=== PATIENT | female | born 1935 | race African-American/Black ===

== ENCOUNTER 2017-03-10 16:54 | Emergency (ER) | payer MEDICARE, MEDICAID ==
--- NOTE | 2017-03-10 17:19 | ER Document Report ---
ED Medical Screen (RME) - General Chief Complaint: Tremor Stated Complaint: CHILLS, SHAKINESS Time Seen by Provider: 03/10/17 17:16 Notes: This 82-year-old female patient brought to emergency room for onset last night of shaking and cold chills. No other complaints. At this time the patient states she feels fine. I have greeted and performed a rapid initial assessment of this patient. A comprehensive ED assessment and evaluation of the patient, analysis of test results and completion of the medical decision making process will be conducted by additional ED providers. TRAVEL OUTSIDE OF THE [place] IN LAST 30 DAYS: No - Related Data Allergies/Adverse Reactions: No Known Allergies Allergy (Verified 03/10/17 16:57) Past Medical History - Past Medical History Cardiac Medical History: Reports: Hx Hypertension - medicated Denies: Hx Atrial Fibrillation, Hx Congestive Heart Failure, Hx Coronary Artery Disease, Hx Heart Attack, Hx Hypercholesterolemia, Hx Peripheral Vascular Disease, Hx Heart Murmur Pulmonary Medical History: Denies: Hx Asthma, Hx Bronchitis, Hx COPD, Hx Pneumonia, Hx Tuberculosis Neurological Medical History: Denies: Hx Cerebrovascular Accident, Hx Seizures GI Medical History: Denies: Hx Hepatitis, Hx Hiatal Hernia, Hx Ulcer Musculoskeltal Medical History: Denies Hx Multiple Sclerosis Psychiatric Medical History: Denies: Hx Dementia Infectious Medical History: Denies: Hx Hepatitis Past Surgical History: Reports: Hx Tubal Ligation. Denies: Hx Appendectomy, Hx Bowel Surgery, Hx Section, Hx Cholecystectomy, Hx Coronary Artery Bypass Graft, Hx Gastric Bypass Surgery, Hx Herniorrhaphy, Hx Hysterectomy, Hx Mastectomy, Hx Open Heart Surgery, Hx Pacemaker, Hx Tonsillectomy Physical Exam - Vital signs Vitals: Temp Pulse BP Pulse Ox 97.5 F 94 141/82 H 97 03/10/17 17:15 03/10/17 17:15 03/10/17 17:15 03/10/17 17:15 Course - Vital Signs Vital signs: Temp Pulse Resp BP Pulse Ox 97.5 F 94 141/82 H 97 03/10/17 17:15 03/10/17 17:15 03/10/17 17:15 03/10/17 17:15
[2017-03-10 17:59] LABS: ABSOLUTE LYMPHOCYTES (AUTO) 1.7 10^3/uL (0.5-4.7); ABSOLUTE MONOCYTES (AUTO) 0.7 10^3/uL (0.1-1.4); BASOPHILS % (AUTO) 0.4 % (0-2); EOSINOPHILS % (AUTO) 0.5 % (0-6); HEMATOCRIT 37.7 % (36.0-47.0); HEMOGLOBIN 11.8 g/dL (12.0-15.5); LYMPHOCYTES % (AUTO) 22.5 % (13-45); MEAN CORPUSCULAR HGB CONC 31.2 g/dL (32.0-36.0); MEAN CORPUSCULAR VOLUME 74 fl (80-97); MONOCYTES % (AUTO) 9.3 % (3-13); PLATELET COUNT 223 10^3/uL (150-450); RED BLOOD COUNT 5.12 10^6/uL (3.72-5.28); RED CELL DISTRIBUTION WIDTH 15.1 % (11.5-14.0); SEGMENTED NEUTROPHILS % (AUTO) 67.3 % (42-78); TOTAL CELLS COUNTED % (AUTO) 100 %; WHITE BLOOD COUNT 7.5 10^3/uL (4.0-10.5)
[2017-03-10 18:06] LABS: APPEARANCE,URINE SLIGHTLY-CLOUDY; BILIRUBIN,URINE NEGATIVE (NEGATIVE); COLOR,URINE YELLOW; GLUCOSE, URINE NEGATIVE (NEGATIVE); KETONES,URINE NEGATIVE (NEGATIVE); LEUKOCYTE ESTERASE,URINE SMALL (NEGATIVE); NITRITE,URINE POSITIVE (NEGATIVE); PROTEIN,URINE NEGATIVE (NEGATIVE)
[2017-03-10 18:12] LABS: ALANINE AMINOTRANSFERASE 18 U/L (9-52); ALBUMIN 3.9 g/dL (3.5-5.0); ALKALINE PHOSPHATASE 56 U/L (38-126); ANION GAP 9 (5-19); ASPARTATE AMINO TRANSFERASE 37 U/L (14-36); BILIRUBIN,DIRECT 0.2 mg/dL (0.0-0.4); BILIRUBIN,TOTAL 0.6 mg/dL (0.2-1.3); BLOOD UREA NITROGEN 18 mg/dL (7-20); CALCIUM 10.5 mg/dL (8.4-10.2); CARBON DIOXIDE 29 mmol/L (22-30); CHLORIDE 105 mmol/L (98-107); GLUCOSE 99 mg/dL (75-110); POTASSIUM 3.8 mmol/L (3.6-5.0); SODIUM 142.6 mmol/L (137-145); TOTAL PROTEIN 7.6 g/dL (6.3-8.2)
[2017-03-10] MEDS ORDERED: CEPHALEXIN 500 MG CAPSULE PO ONE (19:23)
--- NOTE | 2017-03-10 19:24 | ER Document Report ---
ED General - General Chief Complaint: Tremor Stated Complaint: CHILLS, SHAKINESS Time Seen by Provider: 03/10/17 17:16 Notes: Patient is an 82-year-old woman who presents with 48 hours of intermittent shaking and chills. She denies any complaints at time of my assessment. Family states they have noticed her appearing very cold and shaking particularly at night which is what prompted them to bring her to the emergency department today. No history of similar symptoms in the past. Patient denies any localizing infectious symptoms including cough, headache, neck pain, shortness of breath, abdominal pain, vomiting or diarrhea. She denies dysuria. She has not seen her primary doctor regarding today's concerns. She has not tried to treat her symptoms and nothing seems to prompt the symptoms. TRAVEL OUTSIDE OF THE [place] IN LAST 30 DAYS: No - Related Data Allergies/Adverse Reactions: No Known Allergies Allergy (Verified 03/10/17 16:57) Past Medical History - General Information source: Patient - Social History Smoking Status: Former Smoker Chew tobacco use (# tins/day): Yes Frequency of alcohol use: None Drug Abuse: None Lives with: Family Family History: Reviewed & Not Pertinent Patient has suicidal ideation: No Patient has homicidal ideation: No - Past Medical History Cardiac Medical History: Reports: Hx Hypertension - medicated Denies: Hx Atrial Fibrillation, Hx Congestive Heart Failure, Hx Coronary Artery Disease, Hx Heart Attack, Hx Hypercholesterolemia, Hx Peripheral Vascular Disease, Hx Heart Murmur Pulmonary Medical History: Denies: Hx Asthma, Hx Bronchitis, Hx COPD, Hx Pneumonia, Hx Tuberculosis Neurological Medical History: Denies: Hx Cerebrovascular Accident, Hx Seizures Renal/ Medical History: Denies: Hx Peritoneal Dialysis GI Medical History: Denies: Hx Hepatitis, Hx Hiatal Hernia, Hx Ulcer Musculoskeltal Medical History: Denies Hx Multiple Sclerosis Psychiatric Medical History: Denies: Hx Dementia Infectious Medical History: Denies: Hx Hepatitis Past Surgical History: Reports: Hx Tubal Ligation. Denies: Hx Appendectomy, Hx Bowel Surgery, Hx Section, Hx Cholecystectomy, Hx Coronary Artery Bypass Graft, Hx Gastric Bypass Surgery, Hx Herniorrhaphy, Hx Hysterectomy, Hx Mastectomy, Hx Open Heart Surgery, Hx Pacemaker, Hx Tonsillectomy - Immunizations Hx Pneumococcal Vaccination: 03/28/13 Review of Systems - Review of Systems Notes: Constitutional: Negative for fever. Positive for chills HENT: Negative for sore throat. Eyes: Negative for visual changes. Cardiovascular: Negative for chest pain. Respiratory: Negative for shortness of breath. Gastrointestinal: Negative for abdominal pain, vomiting or diarrhea. Genitourinary: Negative for dysuria. Musculoskeletal: Negative for back pain. Skin: Negative for rash. Neurological: Negative for headaches, weakness or numbness. 10 point ROS negative except as marked above and in HPI. Physical Exam - Vital signs Vitals: Temp Pulse BP Pulse Ox 97.5 F 94 141/82 H 97 03/10/17 17:15 03/10/17 17:15 03/10/17 17:15 03/10/17 17:15 Interpretation: Normal Notes: PHYSICAL EXAMINATION: GENERAL: Well-appearing, well-nourished and in no acute distress. HEAD: Atraumatic, normocephalic. EYES: Pupils equal round and reactive to light, extraocular movements intact, sclera anicteric, conjunctiva are normal. ENT: nares patent, oropharynx clear without exudates. Moist mucous membranes. NECK: Normal range of motion, supple without lymphadenopathy LUNGS: Breath sounds clear to auscultation bilaterally and equal. No wheezes rales or rhonchi. HEART: Regular rate and rhythm without murmurs ABDOMEN: Soft, nontender, normoactive bowel sounds. No guarding, no rebound. No masses appreciated. EXTREMITIES: Normal range of motion, no pitting or edema. No cyanosis. NEUROLOGICAL: No focal neurological deficits. Moves all extremities spontaneously and on command. PSYCH: Normal mood, normal affect. SKIN: Warm, Dry, normal turgor, no rashes or lesions noted. Course - Re-evaluation Re-evalutation: 03/10/17 19:23 Patient presents with intermittent tremors and chills but denies any additional complaints. She is otherwise very well in appearance, denies any complaints at the time of my assessment. She denies any clinical history to suggest an acute pneumonia. Lung sounds clear. No abdominal pain or localized tenderness. I do not suspect an acute appendicitis, aortic dissection, mesenteric ischemia, regional colitis, and I have not identified any areas of cellulitis. She is laughing and joking with her family during the exam. Her urinalysis is consistent with an acute urinary tract infection with 3+ bacteria, 15 white blood cells, positive leuk esterase and nitrates. A urine culture has been sent and she will be started on cephalexin for coverage. At this time will discharge with return precautions and follow-up recommendations. Verbal discharge instructions given a the bedside and opportunity for questions given. Medication warnings reviewed. Patient is in agreement with this plan and has verbalized understanding of return precautions and the need for primary care follow-up in the next 24-72 hours. - Vital Signs Vital signs: Temp Pulse Resp BP Pulse Ox 98.9 F 76 14 150/80 H 96 03/10/17 19:47 03/10/17 19:47 03/10/17 19:47 03/10/17 19:47 03/10/17 19:47 - Laboratory Result Diagrams: 03/10/17 17:30 03/10/17 17:30 Laboratory results interpreted by me: 03/10/17 03/10/17 03/10/17 17:30 17:30 17:30 Hgb 11.8 L MCV 74 L MCH 23.0 L MCHC 31.2 L RDW 15.1 H Est GFR (Non-Af Amer) 56 L Calcium 10.5 H AST 37 H Urine Nitrite POSITIVE H Urine Urobilinogen 4.0 H Ur Leukocyte Esterase SMALL H Discharge - Discharge Clinical Impression: Chills Urinary tract infection Qualifiers: Urinary tract infection type: acute cystitis Hematuria presence: without hematuria Qualified Code(s): N30.00 - Acute cystitis without hematuria Condition: Good Disposition: HOME, SELF-CARE Additional Instructions: Your urine shows findings consistent with a urinary tract infection. Please take all the antibiotics as directed even if your symptoms have improved. Please follow-up with your primary care physician as needed. Return to emergency room if you develop fever >101F, persistent vomiting, become lethargic , have severe pain in your sides, or any other symptoms that are concerning to you. Prescriptions: Cephalexin Monohydrate [Keflex 500 mg Capsule] 500 mg PO Q6H 5 Days capsule Referrals: PILO BLACK MD [Primary Care Provider] - Follow up as needed
[2017-03-10 19:53] VITALS: BP 150/80
== END 2017-03-10 19:54 | disposition home or self-care (01) ==
LOC: ER 16:54
DX: N30.00 Acute cystitis without hematuria (principal); R68.83 Chills (without fever); I10 Essential (primary) hypertension; Z98.51 Tubal ligation status; Z87.891 Personal history of nicotine dependence
CPT/HCPCS: 99283; 36415; 87040; 87086; 85025; 87088; 80053; 81001; 87186; A9270

== ENCOUNTER 2018-03-24 13:21 | Emergency (ER) | payer MEDICARE, MEDICAID ==
--- NOTE | 2018-03-24 14:20 | ER Document Report ---
ED Medical Screen (RME) - General Chief Complaint: Urinary Problem Stated Complaint: URINARY ISSUE Time Seen by Provider: 03/24/18 14:14 Primary Care Provider: PILO BLACK MD [Primary Care Provider] - Follow up as needed Mode of Arrival: Wheelchair Information source: Patient, Relative Notes: 83-year-old female brought to the emergency department by her daughter for altered mental status. Daughter states that the patient has a history of dementia but is not at her baseline. She states that she is more confused than normal today she has been rocking back and forth. Daughter states that her symptoms are similar to when she has had a urinary tract infection previously. Daughter does note that she had 4 teeth pulled yesterday. She is currently on clindamycin. Daughter also notes that she found her on the ground yesterday. Unknown if the patient hit her head or loss consciousness. Patient was complaining of neck pain yesterday. Patient has no complaints in the room. Daughter denies any fever, vomiting, diarrhea, constipation. States that she did have one episode of incontinence last night. I have greeted and performed a rapid initial assessment of this patient. A comprehensive ED assessment and evaluation of the patient, analysis of test results and completion of the medical decision making process will be conducted by additional ED providers. PHYSICAL EXAMINATION: GENERAL: Well-appearing, well-nourished and in no acute distress. HEAD: No obvious trauma. EYES: Pupils equal round extraocular movements intact, conjunctiva are normal. ENT: Nares patent NECK: Normal range of motion. No tenderness to palpation. LUNGS: No respiratory distress Musculoskeletal: Normal range of motion NEUROLOGICAL: Normal speech. TRAVEL OUTSIDE OF THE [place] IN LAST 30 DAYS: No - Related Data Allergies/Adverse Reactions: No Known Allergies Allergy (Verified 03/24/18 14:12) Past Medical History - Social History Chew tobacco use (# tins/day): Yes Frequency of alcohol use: None Drug Abuse: None - Past Medical History Cardiac Medical History: Reports: Hx Hypertension - medicated Denies: Hx Atrial Fibrillation, Hx Congestive Heart Failure, Hx Coronary Artery Disease, Hx Heart Attack, Hx Hypercholesterolemia, Hx Peripheral Vascular Disease, Hx Heart Murmur Pulmonary Medical History: Denies: Hx Asthma, Hx Bronchitis, Hx COPD, Hx Pneumonia, Hx Tuberculosis Neurological Medical History: Denies: Hx Cerebrovascular Accident, Hx Seizures Renal/ Medical History: Denies: Hx Peritoneal Dialysis GI Medical History: Denies: Hx Hepatitis, Hx Hiatal Hernia, Hx Ulcer Musculoskeltal Medical History: Denies Hx Multiple Sclerosis Psychiatric Medical History: Denies: Hx Dementia Infectious Medical History: Denies: Hx Hepatitis Past Surgical History: Reports: Hx Tubal Ligation. Denies: Hx Appendectomy, Hx Bowel Surgery, Hx Section, Hx Cholecystectomy, Hx Coronary Artery Bypass Graft, Hx Gastric Bypass Surgery, Hx Herniorrhaphy, Hx Hysterectomy, Hx Mastectomy, Hx Open Heart Surgery, Hx Pacemaker, Hx Tonsillectomy Physical Exam - Vital signs Vitals: Temp Pulse Resp BP Pulse Ox 97.7 F 77 20 126/80 H 99 03/24/18 13:41 03/24/18 13:41 03/24/18 13:41 03/24/18 13:41 03/24/18 13:41 Course - Vital Signs Vital signs: Temp Pulse Resp BP Pulse Ox 97.7 F 77 20 126/80 H 99 03/24/18 13:41 03/24/18 13:41 03/24/18 13:41 03/24/18 13:41 03/24/18 13:41 Doctor's Discharge - Discharge Referrals: PILO BLACK MD [Primary Care Provider] - Follow up as needed
--- NOTE | 2018-03-24 15:08 | RADIOLOGY REPORT (SQ) ---
EXAM DESCRIPTION: CT HEAD WITHOUT COMPLETED DATE/TIME: 03/24/2018 2:48 pm REASON FOR STUDY: fall, AMS COMPARISON: None. TECHNIQUE: Axial images acquired through the brain without intravenous contrast. Images reviewed wi th bone, brain and subdural windows. Additional sagittal and coronal reconstructions were generated. Images stored on PACS. All CT scanners at this facility use dose modulation, iterative reconstruction, and/or weight based d osing when appropriate to reduce radiation dose to as low as reasonably achievable (ALARA). [facility]: Dose Right [facility]: CareDose [facility]: Dose Right [facility]: Teradose 4D [facility]: Smart Kashless RADIATION DOSE: CT Rad equipment meets quality standard of care and radiation dose reduction techniq ues were employed. CTDIvol: 53.2 mGy. DLP: 1097 mGy-cm.mGy. LIMITATIONS: None. FINDINGS: VENTRICLES: Generalized ventriculomegaly likely related to chronic atrophy. CEREBRUM: No masses. No hemorrhage. No midline shift. Moderate patchy areas of low density in the white matter most likely due to chronic micro-vascular ischemic change. No evidence for acute infarc tion. CEREBELLUM: No masses. No hemorrhage. No alteration of density. No evidence for acute infarction. EXTRAAXIAL SPACES: No hemorrhage or mass or shift. ORBITS AND GLOBE: No intra- or extraconal masses. Normal contour of globe without masses. CALVARIUM: No fracture. PARANASAL SINUSES: No fluid or mucosal thickening. SOFT TISSUES: No mass or hematoma. OTHER: No other significant finding. IMPRESSION: CHRONIC CHANGES OF ATROPHY AND MICROVASCULAR ISCHEMIA. NO ACUTE PROCESS. EVIDENCE OF ACUTE STROKE: NO. TECHNICAL DOCUMENTATION: JOB ID: [id number] Quality ID # [id number]: Final reports with documentation of one or more dose reduction techniques (e.g., Au tomated exposure control, adjustment of the mA and/or kV according to patient size, use of iterative reconstruction technique) 2010 [employer]- All Rights Reserved Reading location - IP/workstation name: [email or web address]
--- NOTE | 2018-03-24 15:20 | RADIOLOGY REPORT (SQ) ---
EXAM DESCRIPTION: CT CERVICAL SPINE WITHOUT COMPLETED DATE/TIME: 03/24/2018 2:48 pm REASON FOR STUDY: fall COMPARISON: None. TECHNIQUE: Axial images acquired through the cervical spine without intravenous contrast. Images re viewed with lung, soft tissue and bone windows. Reconstructed coronal and sagittal MPR images review ed. Images stored on PACS. All CT scanners at this facility use dose modulation, iterative reconstruction, and/or weight based d osing when appropriate to reduce radiation dose to as low as reasonably achievable (ALARA). [facility]: Dose Right [facility]: CareDose [facility]: Dose Right [facility]: Teradose 4D [facility]: Smart judo RADIATION DOSE: CT Rad equipment meets quality standard of care and radiation dose reduction techniq ues were employed. CTDIvol: 24.1 mGy. DLP: 514 mGy-cm. mGy. LIMITATIONS: None. FINDINGS: ALIGNMENT: Scoliosis convex right MINERALIZATION: Normal. VERTEBRAL BODIES: Cervical spondylosis and degenerative disc disease prominent C4-7. DISCS: C1-C2: No abnormality. . C2-C3: No abnormality. C3-C4: No abnormality. C4-C5: Degenerated circumferential bulging disc. Mild foraminal narrowing noted bilaterally. C5-C6: Degenerated circumferential bulging disc. Foraminal stenosis prominent on the left. Facet ar thropathy. C6-C7: Cervical spondylosis and degenerative disc disease. C7-T1: No significant spinal stenosis or exit foraminal stenosis. FACETS, LATERAL MASSES, POSTERIOR ELEMENTS: No fractures. No dislocation. No acute findings. VISUALIZED RIBS: No fractures. LUNG APICES AND SOFT TISSUES: No abnormality seen. OTHER: The right thyroid gland is markedly enlarged and heterogeneous in density. The right thyroid gland measures 8.4 cm(H)x 4.6 cm(T)X 5.9 cm (AP) diameter. Left thyroid gland is small in size and h eterogeneous measuring 2.7 cm (H) x1.6 cm x(T)x 1.9 cm (AP) diameter. Substernal extension of right thyroid gland noted. Associated tracheal displacement to the left is noted. IMPRESSION: No acute fracture identified. Multilevel cervical spondylosis with degenerative disc di sease. Marked right thyromegaly. 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 TECHNICAL DOCUMENTATION: JOB ID: [id number] Quality ID # [id number]: Final reports with documentation of one or more dose reduction techniques (e.g., Au tomated exposure control, adjustment of the mA and/or kV according to patient size, use of iterative reconstruction technique) 2010 [employer]- All Rights Reserved Reading location - IP/workstation name: [email or web address]
[2018-03-24 15:27] LABS: ABSOLUTE LYMPHOCYTES (AUTO) 1.3 10^3/uL (0.5-4.7); ABSOLUTE MONOCYTES (AUTO) 0.9 10^3/uL (0.1-1.4); ABSOLUTE NEUT (AUTO) 11.5 10^3/uL (1.7-8.2); BASOPHILS % (AUTO) 0.1 % (0-2); HEMATOCRIT 38.4 % (36.0-47.0); LYMPHOCYTES % (AUTO) 9.1 % (13-45); MEAN CORPUSCULAR HEMOGLOBIN 23.1 pg (27.0-33.4); MEAN CORPUSCULAR HGB CONC 31.3 g/dL (32.0-36.0); MEAN CORPUSCULAR VOLUME 74 fl (80-97); MONOCYTES % (AUTO) 6.8 % (3-13); PLATELET COUNT 212 10^3/uL (150-450); RED BLOOD COUNT 5.21 10^6/uL (3.72-5.28); RED CELL DISTRIBUTION WIDTH 14.8 % (11.5-14.0); TOTAL CELLS COUNTED % (AUTO) 100 %; WHITE BLOOD COUNT 13.7 10^3/uL (4.0-10.5)
--- NOTE | 2018-03-24 15:28 | RADIOLOGY REPORT (SQ) ---
EXAM DESCRIPTION: CHEST SINGLE VIEW COMPLETED DATE/TIME: 03/24/2018 2:40 pm REASON FOR STUDY: AMS COMPARISON: 02/22/2008. 03/18/2013. EXAM PARAMETERS: NUMBER OF VIEWS: One view. TECHNIQUE: Single frontal radiographic view of the chest acquired. RADIATION DOSE: NA LIMITATIONS: None. FINDINGS: LUNGS AND PLEURA: Chronic lingular scarring . No acute infiltrates or effusions. MEDIASTINUM AND HILAR STRUCTURES: No masses. Contour normal. HEART AND VASCULAR STRUCTURES: The heart is normal with aortic atherosclerosis. Pulmonary vasculatur e is normal. BONES: No acute findings. HARDWARE: None in the chest. OTHER: Persistent tracheal deviation to the left secondary to right thyroid enlargement. IMPRESSION: No acute disease. See above. TECHNICAL DOCUMENTATION: JOB ID: [id number] 2010 [employer]- All Rights Reserved Reading location - IP/workstation name: [email or web address]
[2018-03-24 15:50] LABS: ALANINE AMINOTRANSFERASE 20 U/L (9-52); ALBUMIN 4.5 g/dL (3.5-5.0); ALKALINE PHOSPHATASE 78 U/L (38-126); ANION GAP 10 (5-19); ASPARTATE AMINO TRANSFERASE 47 U/L (14-36); BILIRUBIN,DIRECT 0.4 mg/dL (0.0-0.4); BILIRUBIN,TOTAL 0.8 mg/dL (0.2-1.3); BLOOD UREA NITROGEN 34 mg/dL (7-20); CALCIUM 10.6 mg/dL (8.4-10.2); CARBON DIOXIDE 29 mmol/L (22-30); CHLORIDE 105 mmol/L (98-107); GLUCOSE 99 mg/dL (75-110); POTASSIUM 3.9 mmol/L (3.6-5.0); SODIUM 144.1 mmol/L (137-145); TOTAL PROTEIN 8.7 g/dL (6.3-8.2)
[2018-03-24 16:26] LABS: APPEARANCE,URINE CLEAR; BILIRUBIN,URINE NEGATIVE (NEGATIVE); COLOR,URINE YELLOW; GLUCOSE, URINE NEGATIVE (NEGATIVE); KETONES,URINE NEGATIVE (NEGATIVE); LEUKOCYTE ESTERASE,URINE NEGATIVE (NEGATIVE); NITRITE,URINE NEGATIVE (NEGATIVE); PROTEIN,URINE NEGATIVE (NEGATIVE); URINE SPECIFIC GRAVITY 1.019; UROBILINOGEN,URINE NEGATIVE mg/dL (<2.0)
[2018-03-24 18:32] LABS: A TYPE INFLUENZA AG NEGATIVE (NEGATIVE); B INFLUENZA AG NEGATIVE (NEGATIVE)
[2018-03-24 20:02] VITALS: BP 132/90
--- NOTE | 2018-03-24 20:05 | EKG REPORT ---
SEVERITY:- ABNORMAL ECG - SINUS RHYTHM LVH WITH SECONDARY REPOLARIZATION ABNORMALITY : Confirmed by: Italo Mejía 24-Mar-2018 20:04:36
--- NOTE | 2018-04-11 09:09 | ER Document Report ---
Entered by MELIDA PÉREZ SCRIBE 03/24/18 [id number] Acting as scribe for:DAVIS MONTIEL DO ED General - General Chief Complaint: Urinary Problem Stated Complaint: URINARY ISSUE Time Seen by Provider: 03/24/18 14:14 Primary Care Provider: PILO BLACK MD [Primary Care Provider] - Follow up as needed Mode of Arrival: Wheelchair Information source: Patient, Relative Notes: Patient is an 83 year old female with dementia presents to the emergency department accompanied by daughter complaining of altered mental status. Daughter states the patient has been more confused lately as well as rocking back and forth which is out of character. She also states she found the patient this morning sitting on the floor. She is unsure if the patient fell or had a loss of consciousness. Daughter states she believes the patient has an UTI due to having similar symptoms with a previous UTI. She also reports an episode of urine incontinence. Daughter denies fevers, vomiting, diarrhea or constipation. Patient denies any pain or focal symptoms. TRAVEL OUTSIDE OF THE [place] IN LAST 30 DAYS: No - Related Data Allergies/Adverse Reactions: No Known Allergies Allergy (Verified 03/24/18 14:12) Past Medical History - General Information source: Patient, Relative - Social History Smoking Status: Never Smoker Chew tobacco use (# tins/day): Yes Frequency of alcohol use: None Drug Abuse: None Family History: Reviewed & Not Pertinent Patient has suicidal ideation: No Patient has homicidal ideation: No - Past Medical History Cardiac Medical History: Reports: Hx Hypertension - medicated Psychiatric Medical History: Reports: Hx Dementia Past Surgical History: Reports: Hx Tubal Ligation - Immunizations Hx Pneumococcal Vaccination: 03/28/13 Review of Systems - Review of Systems Constitutional: No symptoms reported EENT: No symptoms reported Cardiovascular: No symptoms reported Respiratory: No symptoms reported Gastrointestinal: No symptoms reported Genitourinary: No symptoms reported Female Genitourinary: No symptoms reported Musculoskeletal: No symptoms reported Skin: No symptoms reported Hematologic/Lymphatic: No symptoms reported Neurological/Psychological: See HPI, Confusion, Dementia -: Yes All other systems reviewed and negative Physical Exam - Vital signs Vitals: Temp Pulse Resp BP Pulse Ox 97.7 F 77 20 126/80 H 99 03/24/18 13:41 03/24/18 13:41 03/24/18 13:41 03/24/18 13:41 03/24/18 13:41 - Notes Notes: GENERAL: Alert, interacts well. No acute distress. HEAD: Normocephalic, atraumatic. EYES: Pupils equal, round, and reactive to light. Extraocular movements intact. ENT: Oral mucosa moist, tongue midline. NECK: Full range of motion. Supple. Trachea midline. LUNGS: Clear to auscultation bilaterally, no wheezes, rales, or rhonchi. No respiratory distress. HEART: Regular rate and rhythm. 1/6 systolic murmur. No gallops or rubs. ABDOMEN: Soft, non-tender. Non-distended. Bowel sounds present in all 4 quadrants. EXTREMITIES: Moves all 4 extremities spontaneously. NEUROLOGICAL: Alert and oriented to person and place. Not oriented to time. Normal speech. PSYCH: Normal affect, normal mood. SKIN: Warm, dry, normal turgor. No rashes or lesions noted. Course - Re-evaluation Re-evalutation: 03/24/18 19:31 CBC shows leukocytosis of 13.7, no anemia, platelets normal, CMP shows slightly elevated BUN otherwise unremarkable, cardiac enzymes negative x2, urinalysis unremarkable, flu a and B swabs are negative, CT scan of the head and neck were ordered given the fact that she was found on her floor and we do not know how she ended up there. These were negative for fracture dislocation. Chest x-ray was unremarkable as well. Only findings were tracheal deviation from stable thyromegaly. Daughter does mention that the patient is currently on antibiotics for dental infection, it is possible that the dental infection is causing her slightly increased confusion and the rocking back and forth. Patient is not having symptoms severe enough to warrant admission at this time. Patient will continue taking the oral antibiotics for her dental infection and be discharged to home. Blood cultures are pending as is urine culture. Patient will return to the emergency department for worsening confusion, fevers or any new or con cerning symptoms. - Vital Signs Vital signs: Temp Pulse Resp BP Pulse Ox 97.7 F 70 17 132/90 H 98 03/24/18 20:01 03/24/18 20:01 03/24/18 20:01 03/24/18 20:01 03/24/18 20:01 - Laboratory Result Diagrams: 03/24/18 15:08 03/24/18 15:08 Laboratory results interpreted by me: 03/24/18 03/24/18 03/24/18 15:08 15:08 15:55 WBC 13.7 H MCV 74 L MCH 23.1 L MCHC 31.3 L RDW 14.8 H Seg Neutrophils % 84.0 H Lymphocytes % 9.1 L Absolute Neutrophils 11.5 H BUN 34 H Est GFR (Non-Af Amer) 50 L Calcium 10.6 H AST 47 H Total Protein 8.7 H Urine Ascorbic Acid 40 H - EKG Interpretation by Me Additional EKG results interpreted by me: 03/24/18 19:33 EKG shows sinus rhythm at a rate of 71, normal axis, normal intervals, no ST segment elevations or depressions, there are T wave inversions noted in 1 and aVL as well as in V4 through the 6 which are new since prior EKG on 03/18/2013, there is LVH per my interpretation. Discharge - Discharge Clinical Impression: Altered mental status Qualifiers: Altered mental status type: disorientation Qualified Code(s): R41.0 - Disorientation, unspecified Leukocytosis Qualifiers: Leukocytosis type: lymphocytosis Qualified Code(s): D72.820 - Lymphocytosis (symptomatic) Condition: Stable Disposition: HOME, SELF-CARE Additional Instructions: Please continue taking the antibiotics that you are prescribed by your dentist. Please return to the emergency department for fevers or worsening confusion or any new or concerning symptoms. Referrals: PILO BLACK MD [Primary Care Provider] - Follow up as needed I personally performed the services described in the documentation, reviewed and edited the documentation which was dictated to the scribe in my presence, and it accurately records my words and actions.
== END 2018-03-24 20:31 | disposition home or self-care (01) ==
LOC: ER 13:21
DX: R41.0 Disorientation, unspecified (principal); D72.820 Lymphocytosis (symptomatic); F03.90 Unspecified dementia, unspecified severity, without behavioral disturbance, psychotic disturbance, mood disturbance, and anxiety; I10 Essential (primary) hypertension; Z98.51 Tubal ligation status
CPT/HCPCS: 36415; 70450; 71045; 72125; 80053; 81001; 84484; 85025; 87040; 87086; 87804; 93005; 93010; 99285

== ENCOUNTER 2018-04-20 13:28 | Inpatient (IN) | payer MEDICARE, MEDICAID ==
[2018-04-20 14:40] LABS: ABSOLUTE EOSINOPHILS # (AUTO) 0.1 10^3/uL (0.0-0.6); ABSOLUTE LYMPHOCYTES (AUTO) 1.1 10^3/uL (0.5-4.7); ABSOLUTE MONOCYTES (AUTO) 0.6 10^3/uL (0.1-1.4); BASOPHILS % (AUTO) 0.6 % (0-2); EOSINOPHILS % (AUTO) 1.4 % (0-6); HEMATOCRIT 34.7 % (36.0-47.0); LYMPHOCYTES % (AUTO) 22.1 % (13-45); MEAN CORPUSCULAR HEMOGLOBIN 23.2 pg (27.0-33.4); MEAN CORPUSCULAR HGB CONC 31.7 g/dL (32.0-36.0); MEAN CORPUSCULAR VOLUME 73 fl (80-97); MONOCYTES % (AUTO) 13.1 % (3-13); PLATELET COUNT 168 10^3/uL (150-450); RED BLOOD COUNT 4.73 10^6/uL (3.72-5.28); RED CELL DISTRIBUTION WIDTH 14.3 % (11.5-14.0); SEGMENTED NEUTROPHILS % (AUTO) 62.8 % (42-78); TOTAL CELLS COUNTED % (AUTO) 100 %; WHITE BLOOD COUNT 4.8 10^3/uL (4.0-10.5)
[2018-04-20] MEDS ORDERED: DIGOXIN INJ 0.5 MG/2 ML AMPULE IV ONE ×2 (15:00→17:00)
[2018-04-20] MEDS: DILTIAZEM HCL 30 MG TABLET PO SCH ×2 (15:03→23:11)
[2018-04-20 15:14] LABS: ALANINE AMINOTRANSFERASE 26 U/L (9-52); ALBUMIN 3.7 g/dL (3.5-5.0); ALKALINE PHOSPHATASE 68 U/L (38-126); ANION GAP 8 (5-19); ASPARTATE AMINO TRANSFERASE 48 U/L (14-36); BILIRUBIN,DIRECT 0.3 mg/dL (0.0-0.4); BILIRUBIN,TOTAL 0.7 mg/dL (0.2-1.3); BLOOD UREA NITROGEN 33 mg/dL (7-20); CALCIUM 10.4 mg/dL (8.4-10.2); CARBON DIOXIDE 29 mmol/L (22-30); CHLORIDE 104 mmol/L (98-107); GLUCOSE 109 mg/dL (75-110); POTASSIUM 3.5 mmol/L (3.6-5.0); SODIUM 140.8 mmol/L (137-145); TOTAL PROTEIN 7.2 g/dL (6.3-8.2)
[2018-04-20 15:28] LABS: FREE T4 (FREE THYROXINE) 1.99 ng/dL (0.78-2.19)
--- NOTE | 2018-04-20 15:47 | RADIOLOGY REPORT (SQ) ---
EXAM DESCRIPTION: CHEST 2 VIEWS COMPLETED DATE/TIME: 04/20/2018 3:25 pm REASON FOR STUDY: AFIB WITH RVR COMPARISON: Chest film 03/24/2018 CT chest 07/11/2013 EXAM PARAMETERS: NUMBER OF VIEWS: two views TECHNIQUE: Digital Frontal and Lateral radiographic views of the chest acquired. RADIATION DOSE: NA LIMITATIONS: none FINDINGS: LUNGS AND PLEURA: No opacities, masses or pneumothorax. No pleural effusion. MEDIASTINUM AND HILAR STRUCTURES: Fullness in the right peritracheal region along the thoracic inlet from right-sided goiter, unchanged from CT chest 2013 HEART AND VASCULAR STRUCTURES: Heart normal size. No evidence for failure. BONES: No acute findings. HARDWARE: None in the chest. OTHER: No other significant finding. IMPRESSION: NO ACUTE RADIOGRAPHIC FINDING IN THE CHEST. TECHNICAL DOCUMENTATION: JOB ID: [id number] [employer]- All Rights Reserved Reading location - IP/workstation name: [email or web address]
[2018-04-20 15:51] LABS: THYROID STIMULATING HORMONE < 0.01 uIU/mL (0.47-4.68)
[2018-04-20] MEDS: APIXABAN 2.5 MG TABLET PO SCH (17:20)
--- NOTE | 2018-04-20 18:24 | PDOC H&P ---
History of Present Illness Admission Date/PCP: 04/20/18 13:28 [facility] Patient complains of: Leg swelling History of Present Illness: RICHARD VEGA is a 83 year old female known to my practice who presented to the office with daughter complaining about intermittent leg swelling over preceding 1 week. She denied any associated chest pain, difficulty with breathing, palpitation, irregular heart beat or excessive salt intake. She claimed compliance with her medication administration but did not take medication so far today. Daughter reported that leg swelling is more in the left leg. No recent long distance traveling, instrumentation or trauma. Her evaluation in the office revealed intermittent irregularly irregular heart rhythm with systolic murmur but no significant leg swelling. Her 12 lead EKG revealed atrial fibrillation with rapid ventricular rate. She was subsequently advised hospitalization for further evaluation and management. She adamantly continue to snuff tobacco product. Her morbidities include hypertension, hyperthyroidism, GERD, vitamin D deficiency, osteoporosis, osteoarthritis, history of polyp of colon and Eczema. Past Medical History Cardiac Medical History: Reports: Hypertension - medicated Denies: Atrial Fibrillation, Congestive Heart Failure, Coronary Artery Disease, Myocardial Infarction, Hyperlipidema, Peripheral Vascular Disease, Heart Murmur Pulmonary Medical History: Denies: Asthma, Bronchitis, Chronic Obstructive Pulmonary Disease (COPD), Pneumonia, Tuberculosis Neurological Medical History: Denies: Seizures GI Medical History: Denies: Hepatitis, Hiatal Hernia Psychiatric Medical History: Reports: Dementia Hematology: Denies: Anemia, Sickle Cell Disease Past Surgical History Past Surgical History: Reports: Tubal Ligation Denies: Amputation, Appendectomy, Section, Cholecystectomy, Coronary Artery Bypass Graft, Gastric Bypass Surgery, Herniorrhaphy, Hysterectomy, Mastectomy, Pacemaker, Tonsillectomy Social History Smoking Status: Never Smoker Frequency of Alcohol Use: None Hx Recreational Drug Use: No Drugs: None Hx Prescription Drug Abuse: No Family History Family History: Reviewed & Not Pertinent Parental Family History Reviewed: Yes Children Family History Reviewed: Yes Sibling(s) Family History Reviewed.: Yes Medication/Allergy Home Medications: Omeprazole 20 mg PO DAILY 03/22/13 Amlodipine Besylate [Norvasc 10 mg Tablet] 10 mg PO DAILY 04/20/18 Calcium Carbonate [Calcium] 600 mg PO DAILY 04/20/18 Cholecalciferol (Vitamin D3) [Vitamin D3 1000 Unit Tablet] 1,000 unit PO DAILY 04/20/18 Clotrimazole/Betamethasone Dip [Lotrisone Cream] 1 applic TP BID 04/20/18 Irbesartan/Hydrochlorothiazide [Irbesartan-Hctz 300-12.5 mg Tb] 1 each PO DAILY 04/20/18 Metoprolol Succinate [Toprol Xl 50 mg Tab.sr] 50 mg PO DAILY 04/20/18 Multivitamin [Tab-A-Josephine (Multiple Vitamin) Tablet] 1 tab PO DAILY 04/20/18 Nystatin [Mycostatin Ointment] 1 applic TP BID 04/20/18 Allergies/Adverse Reactions: lisinopril Adverse Reaction (Mild, Verified 04/20/18 17:36) cough Review of Systems Constitutional: ABSENT: chills, fever(s), headache(s), weight gain, weight loss Eyes: ABSENT: visual disturbances Ears: ABSENT: hearing changes Nose, Mouth, and Throat: ABSENT: as per HPI, headache(s), mouth pain, sore throat, vertigo, other Cardiovascular: PRESENT: edema - intermittent over preceding 1 week. ABSENT: chest pain, dyspnea on exertion, orthropnea, palpitations Respiratory: ABSENT: cough, hemoptysis Gastrointestinal: ABSENT: abdominal pain, constipation, diarrhea, hematemesis, hematochezia, nausea, vomiting Genitourinary: ABSENT: dysuria, hematuria Musculoskeletal: ABSENT: joint swelling Neurological: ABSENT: abnormal gait, abnormal speech, confusion, dizziness, foc al weakness, syncope Endocrine: ABSENT: cold intolerance, heat intolerance, polydipsia, polyuria Hematologic/Lymphatic: ABSENT: easy bleeding, easy bruising, lymphadenopathy Allergic/Immunologic: ABSENT: seasonal rhinorrhea Physical Exam Vital Signs: Temp Pulse Resp BP Pulse Ox 98.1 F 122 H 20 108/82 98 04/20/18 14:33 04/20/18 14:33 04/20/18 14:33 04/20/18 14:33 04/20/18 14:33 Intake & Output 04/19/18 04/20/18 04/21/18 06:59 06:59 06:59 Intake Total 236 Balance 236 Weight 58.7 kg General appearance: PRESENT: no acute distress Head exam: PRESENT: atraumatic, normocephalic Eye exam: PRESENT: conjunctiva pink, EOMI, PERRLA. ABSENT: scleral icterus Ear exam: PRESENT: normal external ear exam Mouth exam: PRESENT: moist Neck exam: PRESENT: full ROM. ABSENT: carotid bruit, JVD, lymphadenopathy, thyromegaly Respiratory exam: PRESENT: clear to auscultation avi Cardiovascular exam: PRESENT: irregular rhythm, +S1, +S2, systolic murmur, tachycardia. ABSENT: diastolic murmur Vascular exam: PRESENT: normal capillary refill. ABSENT: pallor GI/Abdominal exam: PRESENT: normal bowel sounds, soft. ABSENT: distended, guarding, mass, organolmegaly, rebound, tenderness Rectal exam: PRESENT: deferred Extremities exam: ABSENT: pedal edema Musculoskeletal exam: PRESENT: deformity - multiple joints involvement with arthritis Neurological exam: PRESENT: alert, awake, oriented to person, oriented to place, oriented to time, oriented to situation, CN II-XII grossly intact. ABSENT: motor sensory deficit Psychiatric exam: PRESENT: appropriate affect, normal mood. ABSENT: homicidal ideation, suicidal ideation Skin exam: PRESENT: dry, rash - scaly irregular border rash over left side of neck, warm Results Laboratory Results: 04/20/18 14:30 04/20/18 14:30 04/20/18 04/20/18 04/20/18 14:30 14:30 14:30 WBC 4.8 RBC 4.73 Hgb 11.0 L Hct 34.7 L MCV 73 L MCH 23.2 L MCHC 31.7 L RDW 14.3 H Plt Count 168 Seg Neutrophils % 62.8 Lymphocytes % 22.1 Monocytes % 13.1 H Eosinophils % 1.4 Basophils % 0.6 Absolute Neutrophils 3.0 Absolute Lymphocytes 1.1 Absolute Monocytes 0.6 Absolute Eosinophils 0.1 Absolute Basophils 0.0 Sodium 140.8 Potassium 3.5 L Chloride 104 Carbon Dioxide 29 Anion Gap 8 BUN 33 H Creatinine 1.02 Est GFR ( Amer) > 60 Est GFR (Non-Af Amer) 52 L Glucose 109 Calcium 10.4 H Total Bilirubin 0.7 AST 48 H ALT 26 Alkaline Phosphatase 68 Total Protein 7.2 Albumin 3.7 TSH < 0.01 L Free T4 1.99 Impressions: Chest X-Ray 04/20/18 00:00 IMPRESSION: NO ACUTE RADIOGRAPHIC FINDING IN THE CHEST. Assessment & Plan - Diagnosis (1) Atrial fibrillation with rapid ventricular response Is this a current diagnosis for this admission?: Yes Plan: Admit for rate control management and anticoagulation. See admitting physician orders for details. (2) HTN (hypertension) Qualifiers: Hypertension type: essential hypertension Qualified Code(s): I10 - Essential (primary) hypertension Is this a current diagnosis for this admission?: Yes Plan: Hold preadmission anti hypertensive medication to allow for rate control medication usage due to her low normal blood pressure readings presently. (3) Hyperthyroidism, subclinical Is this a current diagnosis for this admission?: Yes Plan: Continue to monitor response to current medication management (4) GERD (gastroesophageal reflux disease) Qualifiers: Esophagitis presence: without esophagitis Qualified Code(s): K21.9 - Gastro-esophageal reflux disease without esophagitis Is this a current diagnosis for this admission?: Yes Plan: Maintain on PPI medication and lifestyle management. (5) Postmenopausal osteoporosis Is this a current diagnosis for this admission?: Yes Plan: Continue preadmission medication management as indicated. (6) Vitamin D deficiency Is this a current diagnosis for this admission?: Yes Plan: Continue current preadmission medication management as indicated. (7) Osteoarthritis involving multiple joints on both sides of body Is this a current diagnosis for this admission?: Yes Plan: Continue current preadmission medication management as indicated. - Time Time Spent: 50 to 70 Minutes Medications reviewed and adjusted accordingly: Yes Anticipated discharge: Home Within: Other - Inpatient Certification Based on my medical assessment, after consideration of the patient's comorbidities, presenting symptoms, or acuity I expect that the services needed warrant INPATIENT care.: Yes I certify that my determination is in accordance with my understanding of Medicare's requirements for reasonable and necessary INPATIENT services [42 CFR 412.3e].: Yes Medical Necessity: Significant Comorbidiites Make Outpatient Treatment Too Risky, Need Close Monitoring Due to Risk of Patient Decompensation, Need For Continuous Telemetry Monitoring, Risk of Complication if Not Cared For in Hospital, Risk of Diagnosis Which Will Require Inpatient Eval/Care/Monitoring 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
--- NOTE | 2018-04-20 20:51 | EKG REPORT ---
SEVERITY:- ABNORMAL ECG - ATRIAL FIBRILLATION, V-RATE 88-158 LVH WITH SECONDARY REPOLARIZATION ABNORMALITY BORDERLINE PROLONGED QT INTERVAL : Confirmed by: Edith Everett MD 20-Apr-2018 20:50:59
[2018-04-20] MEDS: CALCIUM CARBONATE 500 MG TABLET PO SCH (21:16)
[2018-04-21] MEDS: DILTIAZEM HCL 30 MG TABLET PO SCH ×4 (05:13→23:44)
[2018-04-21] MEDS: LANSOPRAZOLE 30 MG TAB.RAP.DR PO SCH (05:13)
[2018-04-21] MEDS ORDERED: (PENDING PHARMACY ID) (Calcium Carbonate [Calcium] 600 MG) PO SCH (10:00)
[2018-04-21] MEDS: MULTIVITAMIN TABLET PO SCH (11:15)
[2018-04-21] MEDS: APIXABAN 2.5 MG TABLET PO SCH ×2 (11:15→18:57)
[2018-04-21] MEDS: CALCIUM CARBONATE 500 MG TABLET PO SCH (11:15)
--- NOTE | 2018-04-21 18:06 | PDOC PROGRESS REPORT ---
Subjective Progress Note for:: 04/21/18 Subjective:: Patient was seen by the bedside she was admitted for the management of A. fib with rapid ventricular response, she has no new complaints today Reason For Visit: AFIB WITH RVR,HTN,GERD,HYPERTHYROIDISM Physical Exam Vital Signs: Temp Pulse Resp BP Pulse Ox 98.0 F 96 16 116/53 L 96 04/21/18 15:34 04/21/18 15:34 04/21/18 15:34 04/21/18 15:34 04/21/18 15:34 Intake & Output 04/20/18 04/21/18 04/22/18 06:59 06:59 07:59 Intake Total 836 Balance 836 Weight 74.4 kg General appearance: PRESENT: no acute distress Eye exam: PRESENT: PERRLA Respiratory exam: PRESENT: clear to auscultation avi Cardiovascular exam: PRESENT: irregular rhythm, +S1, +S2 GI/Abdominal exam: PRESENT: soft Results Laboratory Results: 04/20/18 14:30 04/20/18 14:30 Impressions: Chest X-Ray 04/20/18 00:00 IMPRESSION: NO ACUTE RADIOGRAPHIC FINDING IN THE CHEST. Assessment & Plan - Diagnosis (1) Atrial fibrillation with rapid ventricular response Is this a current diagnosis for this admission?: Yes Plan: Continue treatment
[2018-04-22] MEDS: DILTIAZEM HCL 30 MG TABLET PO SCH ×4 (05:34→23:47)
[2018-04-22] MEDS: LANSOPRAZOLE 30 MG TAB.RAP.DR PO SCH (05:34)
[2018-04-22] MEDS: CALCIUM CARBONATE 500 MG TABLET PO SCH (10:28)
[2018-04-22] MEDS: APIXABAN 2.5 MG TABLET PO SCH ×2 (10:28→17:22)
[2018-04-22] MEDS: MULTIVITAMIN TABLET PO SCH (10:28)
--- NOTE | 2018-04-22 12:28 | PDOC PROGRESS REPORT ---
Subjective Progress Note for:: 04/22/18 Subjective:: Patient seen by the bedside no new complaints Reason For Visit: AFIB WITH RVR,HTN,GERD,HYPERTHYROIDISM Physical Exam Vital Signs: Temp Pulse Resp BP Pulse Ox 97.3 F 92 18 150/66 H 99 04/22/18 11:15 04/22/18 11:15 04/22/18 11:15 04/22/18 11:15 04/22/18 11:15 Intake & Output 04/21/18 04/22/18 04/23/18 05:59 06:59 06:59 Intake Total Output Total Balance Weight General appearance: PRESENT: no acute distress Eye exam: PRESENT: PERRLA Respiratory exam: PRESENT: clear to auscultation avi Cardiovascular exam: PRESENT: +S1, +S2 GI/Abdominal exam: PRESENT: soft Results Laboratory Results: 04/20/18 14:30 04/20/18 14:30 Impressions: Chest X-Ray 04/20/18 00:00 IMPRESSION: NO ACUTE RADIOGRAPHIC FINDING IN THE CHEST. Assessment & Plan - Diagnosis (1) Atrial fibrillation with rapid ventricular response Is this a current diagnosis for this admission?: Yes Plan: Continue treatment
[2018-04-23] MEDS: DILTIAZEM HCL 30 MG TABLET PO SCH (05:38)
[2018-04-23] MEDS: LANSOPRAZOLE 30 MG TAB.RAP.DR PO SCH (05:39)
[2018-04-23] MEDS ORDERED: DILTIAZEM HCL 120 MG CAP.SR.24H PO SCH (10:00)
[2018-04-23] MEDS: MULTIVITAMIN TABLET PO SCH (10:10)
[2018-04-23] MEDS: APIXABAN 2.5 MG TABLET PO SCH ×2 (10:10→18:32)
[2018-04-23] MEDS: CALCIUM CARBONATE 500 MG TABLET PO SCH (10:10)
--- NOTE | 2018-04-23 18:19 | PDOC PROGRESS REPORT ---
Subjective Progress Note for:: 04/23/18 Subjective:: She denied any chest pain or difficulty with breathing. Patient continue to use snuff even while on admission. She denied any nausea, vomiting or abdominal pain. No reported fever or chills. Her her rate has been under acceptable control so far today following change of her Cardizem to the CD formulary at 120 mg daily. Reason For Visit: AFIB WITH RVR,HTN,GERD,HYPERTHYROIDISM Physical Exam Vital Signs: Temp Pulse Resp BP Pulse Ox 98.2 F 85 17 131/62 H 97 04/23/18 15:37 04/23/18 15:37 04/23/18 15:37 04/23/18 15:37 04/23/18 15:37 Intake & Output 04/22/18 04/23/18 04/24/18 06:59 06:59 06:59 Intake Total 1740 532 Output Total Balance 1740 532 Weight 78.9 kg General appearance: PRESENT: no acute distress, well-developed, well-nourished Head exam: PRESENT: atraumatic, normocephalic Eye exam: PRESENT: conjunctiva pink, EOMI, PERRLA. ABSENT: scleral icterus Ear exam: PRESENT: normal external ear exam Mouth exam: PRESENT: moist Respiratory exam: PRESENT: chest wall tenderness Cardiovascular exam: PRESENT: RRR. ABSENT: diastolic murmur, rubs, systolic murmur Vascular exam: PRESENT: normal capillary refill. ABSENT: pallor GI/Abdominal exam: PRESENT: normal bowel sounds, soft. ABSENT: distended, guarding, mass, organolmegaly, rebound, tenderness Extremities exam: ABSENT: pedal edema Musculoskeletal exam: PRESENT: deformity - related to multiple joints involvement with arthritis. Neurological exam: PRESENT: alert, awake, oriented to person, oriented to place, oriented to time, oriented to situation, CN II-XII grossly intact. ABSENT: motor sensory deficit Psychiatric exam: PRESENT: appropriate affect, normal mood. ABSENT: homicidal ideation, suicidal ideation Skin exam: PRESENT: dry, warm Results Laboratory Results: 04/20/18 14:30 04/20/18 14:30 Impressions: Chest X-Ray 04/20/18 00:00 IMPRESSION: NO ACUTE RADIOGRAPHIC FINDING IN THE CHEST. Assessment & Plan - Diagnosis (1) Atrial fibrillation with rapid ventricular response Is this a current diagnosis for this admission?: Yes (2) HTN (hypertension) Qualifiers: Hypertension type: essential hypertension Qualified Code(s): I10 - Essential (primary) hypertension Is this a current diagnosis for this admission?: Yes (3) Hyperthyroidism, subclinical Is this a current diagnosis for this admission?: Yes (4) GERD (gastroesophageal reflux disease) Qualifiers: Esophagitis presence: without esophagitis Qualified Code(s): K21.9 - Gastro-esophageal reflux disease without esophagitis Is this a current diagnosis for this admission?: Yes (5) Postmenopausal osteoporosis Is this a current diagnosis for this admission?: Yes (6) Vitamin D deficiency Is this a current diagnosis for this admission?: Yes (7) Osteoarthritis involving multiple joints on both sides of body Is this a current diagnosis for this admission?: Yes - Time Time Spent with patient: 25-34 minutes Medications reviewed and adjusted accordingly: Yes Anticipated discharge: Home Within: within 24 hours - Inpatient Certification Based on my medical assessment, after consideration of the patient's comorbidities, presenting symptoms, or acuity I expect that the services needed warrant INPATIENT care.: Yes I certify that my determination is in accordance with my understanding of Medicare's requirements for reasonable and necessary INPATIENT services [42 CFR 412.3e].: Yes Medical Necessity: Significant Comorbidiites Make Outpatient Treatment Too Risky, Need Close Monitoring Due to Risk of Patient Decompensation, Need For Continuous Telemetry Monitoring, Risk of Complication if Not Cared For in Hospital, Risk of Diagnosis Which Will Require Inpatient Eval/Care/Monitoring 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 Continue all other current medication management. Patient and family are agreeable with possible d/c tomorrow.
[2018-04-23 21:15] LABS: ABSOLUTE EOSINOPHILS # (AUTO) 0.1 10^3/uL (0.0-0.6); ABSOLUTE LYMPHOCYTES (AUTO) 1.1 10^3/uL (0.5-4.7); ABSOLUTE MONOCYTES (AUTO) 0.5 10^3/uL (0.1-1.4); ABSOLUTE NEUT (AUTO) 3.3 10^3/uL (1.7-8.2); BASOPHILS % (AUTO) 0.5 % (0-2); EOSINOPHILS % (AUTO) 1.7 % (0-6); HEMATOCRIT 36.2 % (36.0-47.0); HEMOGLOBIN 11.5 g/dL (12.0-15.5); LYMPHOCYTES % (AUTO) 22.5 % (13-45); MEAN CORPUSCULAR HEMOGLOBIN 23.2 pg (27.0-33.4); MEAN CORPUSCULAR HGB CONC 31.7 g/dL (32.0-36.0); MEAN CORPUSCULAR VOLUME 73 fl (80-97); MONOCYTES % (AUTO) 10.5 % (3-13); PLATELET COUNT 159 10^3/uL (150-450); RED BLOOD COUNT 4.94 10^6/uL (3.72-5.28); RED CELL DISTRIBUTION WIDTH 14.1 % (11.5-14.0); SEGMENTED NEUTROPHILS % (AUTO) 64.8 % (42-78); TOTAL CELLS COUNTED % (AUTO) 100 %; WHITE BLOOD COUNT 5.1 10^3/uL (4.0-10.5)
[2018-04-23 21:16] LABS: ANION GAP 9 (5-19); BLOOD UREA NITROGEN 17 mg/dL (7-20); CALCIUM 10.2 mg/dL (8.4-10.2); CARBON DIOXIDE 26 mmol/L (22-30); CHLORIDE 103 mmol/L (98-107); GLUCOSE 114 mg/dL (75-110); POTASSIUM 4.1 mmol/L (3.6-5.0); SODIUM 137.9 mmol/L (137-145)
[2018-04-24] MEDS: LANSOPRAZOLE 30 MG TAB.RAP.DR PO SCH (05:27)
--- NOTE | 2018-04-24 08:15 | PDOC DISCHARGE SUMMARY ---
General - Admit/Disc Date/PCP Admission Date/Primary Care Provider: 04/20/18 13:28 PILO SOFIA Discharge Date: 04/24/18 - Discharge Diagnosis (1) Atrial fibrillation with rapid ventricular response Is this a current diagnosis for this admission?: Yes (2) HTN (hypertension) Is this a current diagnosis for this admission?: Yes (3) Hyperthyroidism, subclinical Is this a current diagnosis for this admission?: Yes (4) GERD (gastroesophageal reflux disease) Is this a current diagnosis for this admission?: Yes (5) Postmenopausal osteoporosis Is this a current diagnosis for this admission?: Yes (6) Vitamin D deficiency Is this a current diagnosis for this admission?: Yes (7) Osteoarthritis involving multiple joints on both sides of body Is this a current diagnosis for this admission?: Yes - Additional Information Prescriptions: Apixaban [Eliquis 2.5 mg Tablet] 2.5 mg PO BID #60 tablet Diltiazem HCl [Cardizem Cd 180 mg Capsule] 1 cap.sr PO DAILY 30 Days #30 cap.sr Home Medications: Omeprazole 20 mg PO DAILY 03/22/13 Calcium Carbonate [Calcium] 600 mg PO DAILY 04/20/18 Cholecalciferol (Vitamin D3) [Vitamin D3 1000 Unit Tablet] 1,000 unit PO DAILY 04/20/18 Clotrimazole/Betamethasone Dip [Lotrisone Cream] 1 applic TP BID 04/20/18 Multivitamin [Tab-A-Josephine (Multiple Vitamin) Tablet] 1 tab PO DAILY 04/20/18 Nystatin [Mycostatin Ointment 15 gm] 1 applic TP BID 04/20/18 Apixaban [Eliquis 2.5 mg Tablet] 2.5 mg PO BID #60 tablet 04/24/18 Diltiazem HCl [Cardizem Cd 180 mg Capsule] 1 cap.sr PO DAILY 30 Days #30 cap.sr 04/24/18 History of Present Illness History of Present Illness: RICHARD VEGA is a 83 year old female known to my practice who presented to the office with daughter complaining about intermittent leg swelling over preceding 1 week. She denied any associated chest pain, difficulty with breathing, palpitation, irregular heart beat or excessive salt intake. She claimed compliance with her medication administration but did not take medication so far today. Daughter reported that leg swelling is more in the left leg. No recent long distance traveling, instrumentation or trauma. Her evaluation in the office revealed intermittent irregularly irregular heart rhythm with systolic murmur but no significant leg swelling. Her 12 lead EKG revealed atrial fibrillation with rapid ventricular rate. She was subsequently advised hospitalization for further evaluation and management. She adamantly continue to snuff tobacco product. Her morbidities include hypertension, hyperthyroidism, GastroEsophageal Reflux Disease, vitamin D deficiency, osteoporosis, osteoarthritis, history of polyp of colon and Eczema. Hospital Course Hospital Course: Patient was admitted from the office due to new onset atrial fibrillation with rapid ventricular rate. She was managed with IV Digoxin and oral Cardizem due to associated low blood pressure. She was maintained on Eliquis 2.5mg po bid for anticoagulation therapy. Her heart rate is currently in satisfactory range with effort. Her blood pressure remain in good range on current dosage. She remain adamant on use of tobacco snuff product despite adequate explanation to deleterious effect and possible contribution to her rhythm problem. She will be discharge home today and follow up in the office as instructed upon discharge. F urther evaluation will be completed on outpatient bases. Physical Exam Vital Signs: Temp Pulse Resp BP Pulse Ox 97.9 F 119 H 16 145/77 H 94 04/24/18 04:13 04/24/18 07:00 04/24/18 04:13 04/24/18 04:13 04/24/18 04:13 Intake & Output 04/23/18 04/24/18 04/25/18 06:59 06:59 06:59 Intake Total 1740 532 Output Total 400 Balance 1740 132 Weight 78.9 kg 78.9 kg Physical Exam: General appearance: PRESENT: no acute distress, well-developed, well-nourished Head exam: PRESENT: atraumatic, normocephalic Eye exam: PRESENT: conjunctiva pink, EOMI, PERRLA. ABSENT: pallor, scleral icterus Ear exam: PRESENT: normal external ear exam Mouth exam: PRESENT: moist Respiratory exam: PRESENT: chest wall tenderness Cardiovascular exam: PRESENT: RRR. ABSENT: diastolic murmur, rubs, systolic murmur GI/Abdominal exam: PRESENT: normal bowel sounds, soft. ABSENT: distended, gua rding, mass, organomegaly, rebound, tenderness Extremities exam: ABSENT: pedal edema Musculoskeletal exam: PRESENT: deformity - related to multiple joints involvement with arthritis. Neurological exam: PRESENT: alert, awake, oriented to person, oriented to place, oriented to time, oriented to situation, CN II-XII grossly intact. ABSENT: motor sensory deficit Psychiatric exam: PRESENT: appropriate affect, normal mood. ABSENT: homicidal ideation, suicidal ideation Skin exam: PRESENT: dry, warm Results Laboratory Results: 04/23/18 20:26 04/23/18 20:26 04/23/18 04/23/18 20:26 20:26 WBC 5.1 RBC 4.94 Hgb 11.5 L Hct 36.2 MCV 73 L MCH 23.2 L MCHC 31.7 L RDW 14.1 H Plt Count 159 Seg Neutrophils % 64.8 Lymphocytes % 22.5 Monocytes % 10.5 Eosinophils % 1.7 Basophils % 0.5 Absolute Neutrophils 3.3 Absolute Lymphocytes 1.1 Absolute Monocytes 0.5 Absolute Eosinophils 0.1 Absolute Basophils 0.0 Sodium 137.9 Potassium 4.1 Chloride 103 Carbon Dioxide 26 Anion Gap 9 BUN 17 Creatinine 0.93 Est GFR ( Amer) > 60 Est GFR (Non-Af Amer) 58 L Glucose 114 H Calcium 10.2 Impressions: Chest X-Ray 04/20/18 00:00 IMPRESSION: NO ACUTE RADIOGRAPHIC FINDING IN THE CHEST. Qualifiers - * PATIENT BEING DISCHARGED WITH ANY OF THE FOLLOWING DIAGNOSIS: No Plan Discharge Plan: Discharge home today and follow up in the office as instructed upon discharge.
[2018-04-24] MEDS: APIXABAN 2.5 MG TABLET PO SCH (09:03)
[2018-04-24] MEDS: CALCIUM CARBONATE 500 MG TABLET PO SCH (09:03)
[2018-04-24] MEDS: MULTIVITAMIN TABLET PO SCH (09:03)
[2018-04-24] MEDS ORDERED: DILTIAZEM HCL 180 MG CAPSULE.CR PO SCH (10:00)
[2018-04-24] MEDS ORDERED: DILTIAZEM HCL 120 MG CAP.SR.24H PO SCH (10:00)
[2018-04-24 10:48] VITALS: BP 111/63
== END 2018-04-24 11:23 | disposition home or self-care (01) | DRG 310 ==
LOC: 5 13:28
PROVIDERS: ADMIT Internal Medicine Geriatric Medicine; ATTEND Internal Medicine Geriatric Medicine
DX: I48.91 Unspecified atrial fibrillation (principal); I10 Essential (primary) hypertension; K21.9 Gastro-esophageal reflux disease without esophagitis; E05.90 Thyrotoxicosis, unspecified without thyrotoxic crisis or storm; M81.0 Age-related osteoporosis without current pathological fracture; E55.9 Vitamin D deficiency, unspecified; M15.3 Secondary multiple arthritis; L30.9 Dermatitis, unspecified; F03.90 Unspecified dementia, unspecified severity, without behavioral disturbance, psychotic disturbance, mood disturbance, and anxiety; Z23 Encounter for immunization; Z79.899 Other long term (current) drug therapy; Z86.010 Personal history of colon polyps; Z88.8 Allergy status to other drugs, medicaments and biological substances
CPT/HCPCS: 36415; 71046; 80048; 80053; 84439; 84443; 85025; 90471; 90686; 93005; 93010; G0008; J1160

== ENCOUNTER 2019-02-10 16:57 | Emergency (ER) | payer MEDICARE, MEDICAID ==
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
[2019-02-10 19:08] VITALS: BP 162/99
== END 2019-02-10 19:12 | disposition home or self-care (01) ==
LOC: ER 16:57
DX: R07.81 Pleurodynia (principal); I50.9 Heart failure, unspecified; I11.0 Hypertensive heart disease with heart failure; Z98.51 Tubal ligation status
CPT/HCPCS: 99284

== ENCOUNTER 2019-03-14 21:27 | Emergency (ER) | payer MEDICARE, MEDICAID ==
[2019-03-14] MEDS ORDERED: ACETAMINOPHEN 325 MG TABLET PO ONE (22:35)
--- NOTE | 2019-03-14 22:36 | ER Document Report ---
ED Medical Screen (RME) - General Stated Complaint: FEVER,COUGH,WEAKNESS Time Seen by Provider: 03/14/19 22:29 Primary Care Provider: PILO BLACK MD [Primary Care Provider] - Follow up as needed Notes: Patient is a 84-year-old female with a history of congestive heart failure and hypertension who presents emergency department with a chief complaint of weakness. Family states that multiple family members were diagnosed recently with the flu and flulike symptoms. She reports today the patient having urinary incontinence which is different from her normal. She reports low-grade fever. She reports a cough for 2 days and generalized weakness. Denies nausea vomiting diarrhea TRAVEL OUTSIDE OF THE [place] IN LAST 30 DAYS: No - Related Data Allergies/Adverse Reactions: lisinopril Adverse Reaction (Mild, Verified 02/10/19 17:44) cough Past Medical History - Past Medical History Cardiac Medical History: Reports: Hx Congestive Heart Failure, Hx Hypertension - medicated Denies: Hx Atrial Fibrillation, Hx Coronary Artery Disease, Hx Heart Attack, Hx Hypercholesterolemia, Hx Peripheral Vascular Disease, Hx Heart Murmur Pulmonary Medical History: Denies: Hx Asthma, Hx Bronchitis, Hx COPD, Hx Pneumonia, Hx Tuberculosis Neurological Medical History: Denies: Hx Cerebrovascular Accident, Hx Seizures, Hx Parkinson's Disease Renal/ Medical History: Denies: Hx Peritoneal Dialysis GI Medical History: Denies: Hx Hepatitis, Hx Hiatal Hernia, Hx Ulcer Musculoskeltal Medical History: Denies Hx Multiple Sclerosis Psychiatric Medical History: Reports: Hx Dementia Infectious Medical History: Denies: Hx Hepatitis Past Surgical History: Reports: Hx Tubal Ligation. Denies: Hx Appendectomy, Hx Bowel Surgery, Hx Section, Hx Cholecystectomy, Hx Coronary Artery Bypass Graft, Hx Gastric Bypass Surgery, Hx Herniorrhaphy, Hx Hysterectomy, Hx Mastectomy, Hx Open Heart Surgery, Hx Pacemaker, Hx Tonsillectomy Physical Exam - Vital signs Vitals: Temp Pulse Resp BP Pulse Ox 100.5 F H 105 H 20 153/82 H 95 03/14/19 22:18 03/14/19 22:18 03/14/19 22:18 03/14/19 22:18 03/14/19 22:18 - Respiratory Respiratory status: No respiratory distress Chest status: Nontender Breath sounds: Normal Chest palpation: Normal Course - Re-evaluation Re-evalutation: 03/14/19 22:36 I have greeted and performed a rapid initial assessment of this patient. A comprehensive ED assessment and evaluation of the patient, analysis of test results and completion of the medical decision making process will be conducted by additional ED providers. - Vital Signs Vital signs: Temp Pulse Resp BP Pulse Ox 100.5 F H 105 H 20 153/82 H 95 03/14/19 22:18 03/14/19 22:18 03/14/19 22:18 03/14/19 22:18 03/14/19 22:18 Doctor's Discharge - Discharge Referrals: PILO BLACK MD [Primary Care Provider] - Follow up as needed
--- NOTE | 2019-03-14 23:11 | RADIOLOGY REPORT (SQ) ---
XR CHEST 2 VIEWS EXAM DATE: 03/14/2019 10:34 PM PHYSICAL THERAPY DIRECTOR HISTORY: Cough. COMPARISON: 02/10/2019 FINDINGS: Normal heart size without pulmonary edema. No focal consolidation is identified. No pleural effusions or pneumothorax. No acute bony findings are seen. IMPRESSION: No evidence of acute cardiopulmonary disease.
[2019-03-15 00:33] LABS: ABSOLUTE LYMPHOCYTES (AUTO) 0.5 10^3/uL (0.5-4.7); ABSOLUTE MONOCYTES (AUTO) 0.7 10^3/uL (0.1-1.4); ABSOLUTE NEUT (AUTO) 2.8 10^3/uL (1.7-8.2); BASOPHILS % (AUTO) 0.8 % (0-2); EOSINOPHILS % (AUTO) 0.5 % (0-6); HEMOGLOBIN 11.8 g/dL (12.0-15.5); LYMPHOCYTES % (AUTO) 13.3 % (13-45); MEAN CORPUSCULAR HEMOGLOBIN 22.1 pg (27.0-33.4); MEAN CORPUSCULAR HGB CONC 31.1 g/dL (32.0-36.0); MEAN CORPUSCULAR VOLUME 71 fl (80-97); MONOCYTES % (AUTO) 16.4 % (3-13); PLATELET COUNT 191 10^3/uL (150-450); RED BLOOD COUNT 5.35 10^6/uL (3.72-5.28); RED CELL DISTRIBUTION WIDTH 15.7 % (11.5-14.0); TOTAL CELLS COUNTED % (AUTO) 100 %; WHITE BLOOD COUNT 4.1 10^3/uL (4.0-10.5)
[2019-03-15 00:45] LABS: ALKALINE PHOSPHATASE 94 U/L (38-126); ANION GAP 7 (5-19); ASPARTATE AMINO TRANSFERASE 34 U/L (14-36); BILIRUBIN,DIRECT 0.1 mg/dL (0.0-0.4); BILIRUBIN,TOTAL 0.6 mg/dL (0.2-1.3); BLOOD UREA NITROGEN 15 mg/dL (7-20); CALCIUM 10.2 mg/dL (8.4-10.2); CARBON DIOXIDE 28 mmol/L (22-30); CHLORIDE 106 mmol/L (98-107); GLUCOSE 95 mg/dL (75-110); POTASSIUM 4.2 mmol/L (3.6-5.0); TOTAL PROTEIN 8.1 g/dL (6.3-8.2)
[2019-03-15 00:48] LABS: A TYPE INFLUENZA AG NEGATIVE (NEGATIVE); B INFLUENZA AG NEGATIVE (NEGATIVE)
[2019-03-15 01:29] LABS: APPEARANCE,URINE SLIGHTLY-CLOUDY; BILIRUBIN,URINE NEGATIVE (NEGATIVE); COLOR,URINE YELLOW; GLUCOSE, URINE NEGATIVE (NEGATIVE); KETONES,URINE NEGATIVE (NEGATIVE); LEUKOCYTE ESTERASE,URINE TRACE (NEGATIVE); NITRITE,URINE NEGATIVE (NEGATIVE); PROTEIN,URINE 100 mg/dL (NEGATIVE); URINE SPECIFIC GRAVITY 1.021
[2019-03-15] MEDS ORDERED: CEFTRIAXONE 1 GM/D5W RTU 1 GM/50 ML RTUPB IV ONE (02:58)
--- NOTE | 2019-03-15 03:06 | ER Document Report ---
ED General - General Chief Complaint: Cough Stated Complaint: FEVER,COUGH,WEAKNESS Time Seen by Provider: 03/14/19 22:29 Primary Care Provider: PILO BLACK MD [Primary Care Provider] - Follow up in 3-5 days Notes: 84-year-old female presents with generalized weakness, urinary incontinence, coughing, and fever. Per daughter patient has been coughing since Monday. States that family has had flu and coughing. Also states that patient has had 3 episodes of urinary incontinence. States similar episode a while ago and she was diagnosed with a urinary tract infection. Denies nausea/vomiting, confusion, abdominal pain, chest pain, shortness of breath. TRAVEL OUTSIDE OF THE [place] IN LAST 30 DAYS: No - Related Data Allergies/Adverse Reactions: lisinopril Adverse Reaction (Mild, Verified 02/10/19 17:44) cough Home Medications: Eliquis. Cartia. Omeprazole. Losartan. Vitamin D3 Past Medical History - Social History Smoking Status: Never Smoker Chew tobacco use (# tins/day): No Frequency of alcohol use: None Drug Abuse: None Family History: Reviewed & Not Pertinent Patient has suicidal ideation: No Patient has homicidal ideation: No - Past Medical History Cardiac Medical History: Reports: Hx Congestive Heart Failure, Hx Hypertension - medicated Denies: Hx Atrial Fibrillation, Hx Coronary Artery Disease, Hx Heart Attack, Hx Hypercholesterolemia, Hx Peripheral Vascular Disease, Hx Heart Murmur Pulmonary Medical History: Denies: Hx Asthma, Hx Bronchitis, Hx COPD, Hx Pneumonia, Hx Tuberculosis Neurological Medical History: Denies: Hx Cerebrovascular Accident, Hx Seizures, Hx Parkinson's Disease Renal/ Medical History: Denies: Hx Peritoneal Dialysis GI Medical History: Denies: Hx Hepatitis, Hx Hiatal Hernia, Hx Ulcer Musculoskeletal Medical History: Denies Hx Multiple Sclerosis Psychiatric Medical History: Reports: Hx Dementia Infectious Medical History: Denies: Hx Hepatitis Past Surgical History: Reports: Hx Tubal Ligation. Denies: Hx Appendectomy, Hx Bowel Surgery, Hx Section, Hx Cholecystectomy, Hx Coronary Artery Bypa ss Graft, Hx Gastric Bypass Surgery, Hx Herniorrhaphy, Hx Hysterectomy, Hx Mastectomy, Hx Open Heart Surgery, Hx Pacemaker, Hx Tonsillectomy - Immunizations Hx Pneumococcal Vaccination: 03/28/13 Review of Systems - Review of Systems Notes: Constitutional:. Positive for for fever. HENT: Positive for nonproductive coughing. Negative for sore throat. Eyes: Negative for visual changes. Cardiovascular: Negative for chest pain. Respiratory: Negative for shortness of breath. Gastrointestinal: Negative for abdominal pain, vomiting or diarrhea. Genitourinary: Positive for urinary incontinence. Negative for dysuria. Musculoskeletal: Negative for back pain. Skin: Negative for rash. Neurological: Positive for generalized weakness. Negative for headaches or numbness. 10 point ROS negative except as marked above and in HPI. Physical Exam - Vital signs Vitals: Temp Pulse Resp BP Pulse Ox 100.5 F H 105 H 20 153/82 H 95 03/14/19 22:18 03/14/19 22:18 03/14/19 22:18 03/14/19 22:18 03/14/19 22:18 - Notes Notes: GENERAL: Well-appearing, well-nourished and in no acute distress. HEAD: Atraumatic, normocephalic. EYES: Pupils equal round and reactive to light, extraocular movements intact, sclera anicteric, conjunctiva are normal. NECK: Normal range of motion, supple without lymphadenopathy or JVD. LUNGS: Breath sounds clear to auscultation bilaterally and equal. No wheezes rales or rhonchi. HEART: Regular rate and rhythm without murmurs, rubs or gallops. ABDOMEN: Soft, nontender. No guarding, no rebound. No masses appreciated. EXTREMITIES: Normal range of motion, no pitting or edema. No clubbing or cyanosis. NEUROLOGICAL: Cranial nerves II through XII grossly intact. Normal speech, normal gait. PSYCH: Normal mood, normal affect. SKIN: Warm, Dry, normal turgor, no rashes or lesions noted. Course - Re-evaluation Re-evalutation: 03/15/19 nontoxic, well-appearing 84-year-old female presents with fever, generalized weakness, nonproductive cough, urinary incontinence. Daughter states that last time patient had a urinary incontinence she was diagnosed with a urinary tract infection. Abdomen soft nontender. Lungs clear to auscultation bilaterally. Regular rate and rhythm. Upon initial arrival to ER patient was found to have a fever of 100.5 which improved with Tylenol. Patient is alert and oriented. Neuro grossly intact. PE is otherwise unremarkable. Patient has no leukocytosis. UA shows a mild urinary tract infection. Chest x-ray is negative for pneumonia. Lactic was added and so her blood cultures and urine culture. Rocephin 1 g was also ordered. 03/15/19 03:53 Lactic 0.9. Pt is at baseline per daughter. Pt appears nontoxic. Pt to be prescribed Keflex with close follow up with PCP. Strict return precautions given. Pt given close follow up with PCP in 2-3 days. Discussed all results with pt and pt's daughter. Pt and pt's daughter voice understanding and agree with plan of care. - Vital Signs Vital signs: Temp Pulse Resp BP Pulse Ox 98.8 F 105 H 20 153/82 H 95 03/15/19 01:05 03/14/19 22:18 03/14/19 22:18 03/14/19 22:18 03/14/19 22:18 - Laboratory Result Diagrams: 03/15/19 00:15 03/15/19 00:15 Laboratory results interpreted by me: 03/15/19 03/15/19 03/15/19 00:15 00:15 00:32 RBC 5.35 H Hgb 11.8 L MCV 71 L MCH 22.1 L MCHC 31.1 L RDW 15.7 H [place] % (Auto) 16.4 H Est GFR (MDRD) Non-Af 57 L Urine Protein 100 H Urine Urobilinogen 4.0 H Ur Leukocyte Esterase TRACE H Discharge - Discharge Clinical Impression: Acute UTI Condition: Stable Disposition: HOME, SELF-CARE Instructions: Cephalexin ([facility]), Urinary Tract Infection ([facility]) Additional Instructions: Your work-up today shows a urinary tract infection. Chest x-ray did not show any pneumonia. Please continue to take Tylenol or Motrin for fever. Take Keflex as prescribed and finish all doses unless we call you to change it based off your urine culture. Please take Tessalon Perles as needed for cough. Please follow-up with your primary care doctor in 2 to 3 days. Return immediately to ER if you start having any worsening symptoms, including increased weakness, fever not controlled by medication, nausea/vomiting, chest pain, shortness of breath, coughing up blood, increased urinary incontinence, burning while peeing, inability to walk, altered mental status, confusion, abdominal pain, diarrhea, constipation, or any other symptoms that are concerning to you. Prescriptions: Benzonatate [Tessalon Perles 100 mg Capsule] 100 mg PO Q8HP PRN #40 capsule PRN Reason: Cephalexin Monohydrate [Keflex 500 mg Capsule] 500 mg PO Q6H 7 Days #28 capsule Forms: Treatment of Relative/Child Referrals: PILO BLACK MD [Primary Care Provider] - Follow up in 3-5 days
[2019-03-15 04:42] VITALS: BP 150/80
== END 2019-03-15 04:38 | disposition home or self-care (01) ==
LOC: ER 21:27
DX: N39.0 Urinary tract infection, site not specified (principal); R05 Cough; R50.9 Fever, unspecified; R53.1 Weakness; I50.9 Heart failure, unspecified; I11.0 Hypertensive heart disease with heart failure; Z98.51 Tubal ligation status
CPT/HCPCS: 99284; 96365; 36415; 87040; 87086; 83605; 85025; 80053; 81001; 87804; 71046; A9270; J0696

== ENCOUNTER 2019-07-02 19:53 | Emergency (ER) | payer MEDICARE, MEDICAID ==
--- NOTE | 2019-07-02 20:45 | ER Document Report ---
ED Medical Screen (RME) - General Chief Complaint: Leg Swelling Stated Complaint: BOTH LEGS SWOLLEN Time Seen by Provider: 07/02/19 20:43 Primary Care Provider: PILO BLACK MD [Primary Care Provider] - Follow up as needed Mode of Arrival: Wheelchair Information source: Patient Notes: 84-year-old female presented to ED for complaint of both leg swelling since y esterday. The left leg is much larger than the right. She states she does not have a history of heart failure or heart attacks but she does have a history of elevated blood pressure and cholesterol. She is alert oriented answering questions appropriately. The left leg is much more swollen than the right. I have greeted and performed a rapid initial assessment of this patient. A comprehensive ED assessment and evaluation of the patient, analysis of test results and completion of medical decision making process will be conducted by an additional ED providers. TRAVEL OUTSIDE OF THE [place] IN LAST 30 DAYS: No - Related Data Allergies/Adverse Reactions: lisinopril Adverse Reaction (Mild, Verified 07/02/19 20:40) cough Past Medical History - Past Medical History Cardiac Medical History: Reports: Hx Congestive Heart Failure, Hx Hypertension - medicated Denies: Hx Atrial Fibrillation, Hx Coronary Artery Disease, Hx Heart Attack, Hx Hypercholesterolemia, Hx Peripheral Vascular Disease, Hx Heart Murmur Pulmonary Medical History: Denies: Hx Asthma, Hx Bronchitis, Hx COPD, Hx Pneumonia, Hx Tuberculosis Neurological Medical History: Denies: Hx Cerebrovascular Accident, Hx Seizures, Hx Parkinson's Disease Renal/ Medical History: Denies: Hx Peritoneal Dialysis GI Medical History: Denies: Hx Hepatitis, Hx Hiatal Hernia, Hx Ulcer Musculoskeltal Medical History: Denies Hx Multiple Sclerosis Psychiatric Medical History: Reports: Hx Dementia Infectious Medical History: Denies: Hx Hepatitis Past Surgical History: Reports: Hx Tubal Ligation. Denies: Hx Appendectomy, Hx Bowel Surgery, Hx Section, Hx Cholecystectomy, Hx Coronary Artery Bypass Graft, Hx Gastric Bypass Surgery, Hx Herniorrhaphy, Hx Hysterectomy, Hx Mastectomy, Hx Open Heart Surgery, Hx Pacemaker, Hx Tonsillectomy Physical Exam - Vital signs Vitals: Temp Pulse Resp BP Pulse Ox 98.8 F 98 16 149/76 H 94 07/02/19 20:02 07/02/19 20:02 07/02/19 20:02 07/02/19 20:02 07/02/19 20:02 Course - Vital Signs Vital signs: Temp Pulse Resp BP Pulse Ox 98.8 F 98 16 149/76 H 94 07/02/19 20:02 07/02/19 20:02 07/02/19 20:02 07/02/19 20:02 07/02/19 20:02 Doctor's Discharge - Discharge Referrals: PILO BLACK MD [Primary Care Provider] - Follow up as needed
[2019-07-02 21:28] LABS: ABSOLUTE EOSINOPHILS # (AUTO) 0.1 10^3/uL (0.0-0.6); ABSOLUTE LYMPHOCYTES (AUTO) 1.3 10^3/uL (0.5-4.7); ABSOLUTE MONOCYTES (AUTO) 0.4 10^3/uL (0.1-1.4); ABSOLUTE NEUT (AUTO) 3.5 10^3/uL (1.7-8.2); BASOPHILS % (AUTO) 0.7 % (0-2); EOSINOPHILS % (AUTO) 1.1 % (0-6); HEMATOCRIT 34.4 % (36.0-47.0); HEMOGLOBIN 10.7 g/dL (12.0-15.5); LYMPHOCYTES % (AUTO) 24.3 % (13-45); MEAN CORPUSCULAR HEMOGLOBIN 22.3 pg (27.0-33.4); MEAN CORPUSCULAR HGB CONC 31.2 g/dL (32.0-36.0); MEAN CORPUSCULAR VOLUME 72 fl (80-97); MONOCYTES % (AUTO) 7.7 % (3-13); PLATELET COUNT 213 10^3/uL (150-450); RED BLOOD COUNT 4.79 10^6/uL (3.72-5.28); RED CELL DISTRIBUTION WIDTH 16.1 % (11.5-14.0); SEGMENTED NEUTROPHILS % (AUTO) 66.2 % (42-78); TOTAL CELLS COUNTED % (AUTO) 100 %; WHITE BLOOD COUNT 5.3 10^3/uL (4.0-10.5)
--- NOTE | 2019-07-02 21:30 | RADIOLOGY REPORT (SQ) ---
CLINICAL INDICATION: Bilateral leg swelling. TECHNIQUE: PA and lateral views were obtained of the chest COMPARISON: February 10, 2019. FINDINGS: The cardiomediastinal silhouette is prominent but stable. Unfolded thoracic aorta. The lungs are grossly clear. No evidence of effusion or pneumothorax. Visualized bones are unremarkable. . IMPRESSION: No evidence of active intrathoracic disease .
[2019-07-02 21:33] LABS: APPEARANCE,URINE SLIGHTLY-CLOUDY; BILIRUBIN,URINE NEGATIVE (NEGATIVE); COLOR,URINE YELLOW; GLUCOSE, URINE NEGATIVE (NEGATIVE); KETONES,URINE NEGATIVE (NEGATIVE); LEUKOCYTE ESTERASE,URINE MODERATE (NEGATIVE); NITRITE,URINE NEGATIVE (NEGATIVE); PROTEIN,URINE 30 mg/dL (NEGATIVE); URINE SPECIFIC GRAVITY 1.018
[2019-07-02 21:44] LABS: ALBUMIN 3.5 g/dL (3.5-5.0); ALKALINE PHOSPHATASE 67 U/L (38-126); ANION GAP 5 (5-19); ASPARTATE AMINO TRANSFERASE 31 U/L (14-36); BILIRUBIN,TOTAL 0.3 mg/dL (0.2-1.3); BLOOD UREA NITROGEN 13 mg/dL (7-20); CALCIUM 9.4 mg/dL (8.4-10.2); CARBON DIOXIDE 27 mmol/L (22-30); CHLORIDE 106 mmol/L (98-107); GLUCOSE 91 mg/dL (75-110); POTASSIUM 4.3 mmol/L (3.6-5.0); TOTAL PROTEIN 7.2 g/dL (6.3-8.2)
[2019-07-02 21:56] LABS: NT PRO BNP 126 pg/mL (<450)
[2019-07-02 22:04] LABS: TROPONIN I < 0.012 ng/mL
--- NOTE | 2019-07-02 23:11 | RADIOLOGY REPORT (SQ) ---
INDICATION: Bilateral leg swelling left larger than right. PROCEDURE: Real-time grayscale, color, and pulse Doppler ultrasound imaging of the left lower extremity deep venous system was performed. 42 images. COMPARISON: None FINDINGS: The common femoral, superficial femoral, and popliteal veins demonstrate normal compressibility, phasic flow, augmentation and wyatt scale evaluation. There is no evidence of intraluminal thrombus . The visualized deep calf veins appear patent. Contralateral common femoral vein is patent IMPRESSION: No evidence for acute deep venous thrombus from the common femoral to the popliteal veins.
--- NOTE | 2019-07-02 23:25 | ER Document Report ---
ED General - General Chief Complaint: Leg Swelling Stated Complaint: BOTH LEGS SWOLLEN Time Seen by Provider: 07/02/19 20:43 Primary Care Provider: PILO BLACK MD [Primary Care Provider] - Follow up as needed Mode of Arrival: Wheelchair TRAVEL OUTSIDE OF THE [place] IN LAST 30 DAYS: No - HPI Patient complains to provider of: Bilateral leg swelling Onset: Other - 2 to 3 days ago Onset/Duration: Constant Quality of pain: No pain Context: Patient is a 84-year-old female who presents to the emergency department complaining of bilateral lower extremity swelling for the past 2 to 3 days. Patient states that she has no history of heart trouble and no history of heart failure. Patient denies personal prior history of DVT or PE or family history of thromboembolism. Patient denies headache, chest pain, diaphoresis, recent travel, shortness of breath, nausea and vomiting. Patient states nothing has improved her symptoms. Patient denies anything that exacerbates symptoms of swelling. Patient denies high salt intake or other dietary indiscretion. Patient does not remember exact time of onset of symptoms. Patient does not recall exactly where she first noticed symptom onset. Associated symptoms: None - Related Data Allergies/Adverse Reactions: lisinopril Adverse Reaction (Mild, Verified 07/02/19 20:40) cough Past Medical History - General Information source: Patient - Social History Smoking Status: Never Smoker Family History: Reviewed & Not Pertinent Patient has homicidal ideation: No - Past Medical History Cardiac Medical History: Reports: Hx Congestive Heart Failure, Hx Hypertension - medicated Denies: Hx Atrial Fibrillation, Hx Coronary Artery Disease, Hx Heart Attack, Hx Hypercholesterolemia, Hx Peripheral Vascular Disease, Hx Heart Murmur Pulmonary Medical History: Denies: Hx Asthma, Hx Bronchitis, Hx COPD, Hx Pneumonia, Hx Tuberculosis Neurological Medical History: Denies: Hx Cerebrovascular Accident, Hx Seizures, Hx Parkinson's Disease Renal/ Medical History: Denies: Hx Peritoneal Dialysis GI Medical History: Denies: Hx Hepatitis, Hx Hiatal Hernia, Hx Ulcer Musculoskeletal Medical History: Denies Hx Multiple Sclerosis Psychiatric Medical History: Reports: Hx Dementia Infectious Medical History: Denies: Hx Hepatitis Past Surgical History: Reports: Hx Tubal Ligation. Denies: Hx Appendectomy, Hx Bowel Surgery, Hx Section, Hx Cholecystectomy, Hx Coronary Artery Bypass Graft, Hx Gastric Bypass Surgery, Hx Herniorrhaphy, Hx Hysterectomy, Hx Mastectomy, Hx Open Heart Surgery, Hx Pacemaker, Hx Tonsillectomy - Immunizations Hx Pneumococcal Vaccination: 03/28/13 Review of Systems - Review of Systems Constitutional: No symptoms reported EENT: No symptoms reported Cardiovascular: Edema Respiratory: No symptoms reported Gastrointestinal: No symptoms reported Genitourinary: No symptoms reported Female Genitourinary: No symptoms reported Musculoskeletal: No symptoms reported Skin: No symptoms reported Hematologic/Lymphatic: Other Neurological/Psychological: No symptoms reported -: Yes All other systems reviewed and negative Physical Exam - Vital signs Vitals: Temp Pulse Resp BP Pulse Ox 98.8 F 98 16 149/76 H 94 07/02/19 20:02 07/02/19 20:02 07/02/19 20:02 07/02/19 20:02 07/02/19 20:02 - Notes Notes: CONSTITUTIONAL [Vital signs reviewed, Patient appears comfortable, Alert and oriented X 3, Normal stature.] HEAD [Atraumatic, Normocephalic.] EYES [Eyes are normal to inspection, No discharge from eyes, Extraocular muscles intact, Sclera are normal, Conjunctiva are normal.] RESPIRATORY CHEST [Chest is nontender, Breath sounds normal, No respiratory distress.] CARDIOVASCULAR [RRR, No murmurs, Normal S1 S2, No rub, No gallop.] ABDOMEN [Abdomen is nontender, No pulsatile masses, No other masses, Bowel sounds normal, No distension, No peritoneal signs, No hernias.] BACK [There is no CVA Tenderness, There is no tenderness to palpation, Normal inspection.] UPPER EXTREMITY [Inspection normal, No cyanosis, No clubbing, No edema, 2+ radial pulses.] LOWER EXTREMITY [Inspection normal, No cyanosis, No clubbing. Patient has mild pitting edema of her ankles bilaterally, No calf tenderness, 2+ femoral pulses.] NEURO [No focal motor deficits, No focal sensory deficits, Speech normal.] SKIN [Skin is warm, Skin is dry, Skin is normal color.] LYMPHATIC [No adenopathy in neck.] PSYCHIATRIC [Normal affect. ] Course - Re-evaluation Re-evalutation: 07/03/19 00:57 Results of ED MSE discussed with patient. Prior to discharge. Emergency signs and symptoms, reasons to return to the emergency department discussed with patient. - Vital Signs Vital signs: Temp Pulse Resp BP Pulse Ox 98.8 F 98 16 149/76 H 94 07/02/19 20:41 07/02/19 20:02 07/02/19 20:02 07/02/19 20:02 07/02/19 20:02 - Laboratory Result Diagrams: 07/02/19 20:55 07/02/19 20:55 Laboratory results interpreted by me: 07/02/19 07/02/19 20:05 20:55 Hgb 10.7 L Hct 34.4 L MCV 72 L MCH 22.3 L MCHC 31.2 L RDW 16.1 H Urine Protein 30 H Urine Urobilinogen 4.0 H Ur Leukocyte Esterase MODERATE H - Diagnostic Test Radiology reviewed: Reports reviewed - EKG Interpretation by Me Additional EKG results interpreted by me: 07/03/19 00:56 EKG obtained on 07/03/2019 at 00 41 hours was interpreted by this MD. Findings: Normal sinus rhythm, rate 81, normal axis, P waves preceding QRS complexes, QRS complexes appear narrow, there are no obvious patterns of ST segment elevation or depression present to suggest acute myocardial ischemia or infarction. Impression: Normal sinus rhythm with nonspecific ST segments. Discharge - Discharge Clinical Impression: Mild peripheral edema UTI (urinary tract infection) Qualifiers: Urinary tract infection type: site unspecified Hematuria presence: without hematuria Qualified Code(s): N39.0 - Urinary tract infection, site not specified Condition: Good Disposition: HOME, SELF-CARE Additional Instructions: Return to the Emergency Department without delay if any worse. HOME CARE INSTRUCTIONS & INFORMATION: Thank you for choosing us for your medical needs. We hope you're satisfied with the care you received. After you leave, you must properly care for your problem and, at the same time, observe its progress. Any condition can change. Some illnesses can change rapidly over hours or days. If your condition worsens, return to the Emergency Department or see your physician promptly. ABOUT YOUR X-RAYS AND EKG'S: If you had an EKG or X-rays taken, they have been read by the Emergency Physician. The X-rays and EKG's will also be read by a Radiologist or Mimeographer within 24 hours. If discrepancies are noted, you will be notified by telephone. Please be certain the ED has a correct telephone number & address where you can be reached. Also, realize that some fractures or abnormalities do not show up on initial X-rays. If your symptoms continue, see your physician. ABOUT YOUR LABORATORY TEST: If you had laboratory tests, the results have been reviewed by the Emergency Physician. Some test results (for example cultures) may not be available for several days. You will be contacted if any test result shows you need additional treatment. Please be certain the ED has a correct telephone number and address where you can be reached. ABOUT YOUR MEDICATIONS: You will receive instructions on how to take your medicine on the prescription label you receive. Additional information may be provided by the Pharmacy. If you have questions afterwards, call the ED for clarification or further instructions. Some prescribed medications may cause drowsiness. Do not perform tasks such as driving a car or operating machinery without consulting your Pharmacist. If you feel you need a refill of pain medication, your condition will need re-evaluation. Please do not call for a refill of any medication. ABOUT YOUR SIGNATURE: Signature of this document acknowledges to followin. Understanding that you received emergency treatment and that you may be released before al medical problems are known or treated. Please be certain the ED has a correct phone number & address where you can be reached. 2. Acknowledgement that you will arrange for follow-up care as recommended. 3. Authorization for the Emergency Physician to provide information to your follow-up Physician in order to maximize your care. AT ANY TIME, IF YOUR SYMPTOMS CHANGE SIGNIFICANTLY OR WORSEN OR YOU DEVELOP NEW SYMPTOMS, RETURN TO THE EMERGENCY DEPARTMENT IMMEDIATELY FOR RE-EVALUATION. OUR GOAL IS TO PROVIDE EXCELLENT MEDICAL CARE! WE HOPE THAT WE HAVE MET YOUR EXPECTATIONS DURING YOUR EMERGENCY DEPARTMENT VISIT AND THAT YOU FEEL YOU HAVE RECEIVED EXCELLENT CARE! Edema, Peripheral You have swelling in your legs. This is called peripheral edema. It can be caused by "leaky capillaries," inflammation, disease of the leg veins, or excess salt and water in your body. Edema may be a sign of heart, kidney, or liver disease. A medical evaluation can determine if there is a serious underlying cause for your edema. Your evaluation today revealed no evidence of a inflammatory or cardiac cause or clotting disorder. Your labs showed evidence of a urinary tract infection which you are being placed on antibiotics for. You may want to reduce the amount of salt in your diet to help with swelling in your legs. Your EKG showed no evidence of heart trouble. Your labs showed no evidence of heart attack or heart failure. The ultrasound of your legs was negative for a blood clot. Avoid prolonged standing. If you must sit for a long time, occasionally get up and walk around or elevate your legs. Support stockings can be helpful in limiting swelling. Call the doctor or return if you develop increased swelling, pain, or redness, shortness of breath, chest pain, or any other significant change. Urinary Tract Infection Your evaluation indicates that you have a urinary tract infection. This is due to germs growing in the bladder. This is a common problem. This infection usually responds quickly to antibiotics. Your antibiotic should be taken exactly as prescribed. Drink plenty of fluids -- three to four quarts a day. Occasionally, a bladder anesthetic will be prescribed to help stop the feeling of urgency until the antibiotic has a chance to clear the infection. This may cause your urine to be dark orange. Certain urine infections require a culture. If the doctor obtained a culture, the results will be back in two days. You should call to see if a change in treatment is needed. A repeat urinalysis after you finish treatment is often recommended. The physician will let you know if further testing is required. Call the doctor if you develop fever, chills, flank pain, inability to urinate, or blood in the urine. Prescriptions: Nitrofurantoin Monohyd/M-Cryst [Macrobid 100 mg Capsule] 100 mg PO BID 7 Days #14 cap Referrals: PILO BLACK MD [Primary Care Provider] - Follow up as needed
[2019-07-03] MEDS ORDERED: NITROFURANTOIN MONOHYD/M-CRYST 100 MG CAPSULE PO ONE (00:55)
[2019-07-03 01:41] VITALS: BP 141/95
--- NOTE | 2019-07-03 07:44 | EKG REPORT ---
SEVERITY:- ABNORMAL ECG - SINUS RHYTHM PROBABLE LEFT VENTRICULAR HYPERTROPHY PROLONGED QT INTERVAL : Confirmed by: Edith Everett MD 03-Jul-2019 07:43:08
== END 2019-07-03 01:53 | disposition home or self-care (01) ==
LOC: ER 19:53
DX: N39.0 Urinary tract infection, site not specified (principal); R60.9 Edema, unspecified; R03.0 Elevated blood-pressure reading, without diagnosis of hypertension; E78.00 Pure hypercholesterolemia, unspecified
CPT/HCPCS: 99284; 36415; 85025; 80053; 81001; 84484; 83880; 93971; 71046; 93005; 93010; A9270; J8499

== ENCOUNTER 2019-09-21 10:11 | Inpatient (IN) | payer MEDICARE, MEDICAID ==
[~2019-09-21 10:11] MED LIST: GLYCOPYRROLATE 1 MG/5 ML VIAL ONE; LIDOCAINE 2% INJ-PF (20 MG/ML) 2 ML AMPUL ONE; NEOSTIGMINE METHYLSULFATE 10 MG/10 ML VIAL ONE; ONDANSETRON HCL INJ/PF 4 MG/2 ML SDV ONE; ROCURONIUM BROMIDE INJ 50 MG/5 ML VIAL IV ONE
--- NOTE | 2019-09-21 10:23 | ER Document Report ---
ED General - General Chief Complaint: Fall Stated Complaint: FALL Primary Care Provider: PILO BLACK MD [Primary Care Provider] - Follow up as needed Notes: Patient is an 84-year-old -[place] female with a history of dementia, at rial fibrillation on Eliquis, hypertension, hypothyroidism and vitamin D deficiency who has a chronically slowed mental state per family history who presents to the ER via EMS after chief complaint of fall. EMS reports the family states that she falls all the time. Today they called EMS because she fell wedged between 2 objects in the home and the family could not get to her to help her up. EMS was able to extract her. They report that she was ambulatory on scene and complained of right thigh pain. They report the patient and family do not report hitting her head or any loss of consciousness. Stroke screen from EMS was negative. Per history obtained from EMS and family this is her normal baseline mental status. EMS reports she is answering questions appropriately and repeating phrases appropriately. The patient denies any other pain with exception of the right thigh. Denies any numbness tingling or weakness. No chest pain or shortness of breath. No abdominal pain. No headache or neck pain. TRAVEL OUTSIDE OF THE [place] IN LAST 30 DAYS: No - Related Data Allergies/Adverse Reactions: lisinopril Adverse Reaction (Mild, Verified 07/02/19 20:40) cough Past Medical History - Social History Smoking Status: Unknown if Ever Smoked Family History: Reviewed & Not Pertinent - Past Medical History Cardiac Medical History: Reports: Hx Congestive Heart Failure, Hx Hypertension - medicated Denies: Hx Atrial Fibrillation, Hx Coronary Artery Disease, Hx Heart Attack, Hx Hypercholesterolemia, Hx Peripheral Vascular Disease, Hx Heart Murmur Pulmonary Medical History: Denies: Hx Asthma, Hx Bronchitis, Hx COPD, Hx Pneumonia, Hx Tuberculosis Neurological Medical History: Denies: Hx Cerebrovascular Accident, Hx Seizures, Hx Parkinson's Disease Renal/ Medical History: Denies: Hx Peritoneal Dialysis GI Medical History: Denies: Hx Hepatitis, Hx Hiatal Hernia, Hx Ulcer Musculoskeletal Medical History: Denies Hx Multiple Sclerosis Psychiatric Medical History: Reports: Hx Dementia Infectious Medical History: Denies: Hx Hepatitis Past Surgical History: Reports: Hx Tubal Ligation. Denies: Hx Appendectomy, Hx Bowel Surgery, Hx Section, Hx Cholecystectomy, Hx Coronary Artery Bypass Graft, Hx Gastric Bypass Surgery, Hx Herniorrhaphy, Hx Hysterectomy, Hx Mastectomy, Hx Open Heart Surgery, Hx Pacemaker, Hx Tonsillectomy - Immunizations Hx Pneumococcal Vaccination: 03/28/13 Review of Systems - Review of Systems Notes: As per HPI Physical Exam - Vital signs Vitals: Temp Pulse Resp BP Pulse Ox 98.1 F 86 14 182/79 H 96 09/21/19 10:12 09/21/19 10:12 09/21/19 10:12 09/21/19 10:12 09/21/19 10:12 - General General appearance: Appears well, Alert In distress: None - HEENT Neck: Normal, Supple, Other - Nontender. Full range of motion - Respiratory Respiratory status: No respiratory distress Chest status: Nontender Breath sounds: Normal Chest palpation: Normal - Cardiovascular Rhythm: Regular Heart sounds: Normal auscultation - Abdominal Inspection: Normal Distension: No distension Bowel sounds: Normal Tenderness: Nontender Organomegaly: No organomegaly - Extremities Notes: Right lower extremity is externally rotated at the hip appears slightly shorter than the left extremity which is in full extension toes up. 2+ DP bilaterally. Patient nonambulatory here. She resists my efforts to internally rotate the right leg. Tender palpation mid right thigh. - Neurological Neuro grossly intact: Yes Cognition: Normal Orientation: AAOx4 - Psychological Associated symptoms: Normal affect, Normal mood - Skin Skin Temperature: Warm Skin Moisture: Dry Skin Color: Normal Course - Re-evaluation Re-evalutation: 09/21/19 11:42 CT scan showing a right hip fracture. Page sent out to orthopedist on-call, Dr. Carnes. Awaiting return call. Patient's daughter has arrived at bedside I discussed with her story from EMS and our findings and she corroborates the story. Patient is given pain medications and is more comfortable. 09/21/19 11:58 Spoke with orthopedist, Dr. Carnes who agreed with plan for admission. He will plan to operate on the right hip tomorrow morning if the patient is medically cleared by that point. Requested medicine admit the patient given her medical history. Called and spoke with Dr. Martinez, hospitalist, who agreed to admit the patient to telemetry. Patient is stable and appropriate for admission at this time. - Vital Signs Vital signs: Temp Pulse Resp BP Pulse Ox 98.1 F 86 14 182/79 H 96 09/21/19 10:12 09/21/19 10:12 09/21/19 10:12 09/21/19 10:12 09/21/19 10:12 - Laboratory Result Diagrams: 09/21/19 10:18 09/21/19 10:18 Laboratory results interpreted by me: 09/21/19 09/21/19 10:18 10:18 Hgb 10.0 L Hct 31.4 L MCV 73 L MCH 23.2 L MCHC 31.8 L RDW 16.7 H Chloride 109 H Glucose 126 H Discharge - Discharge Clinical Impression: Intertrochanteric fracture Qualifiers: Encounter type: initial encounter Fracture type: closed Fracture alignment: displaced Laterality: right Qualified Code(s): S72.141A - Displaced intertrochanteric fracture of right femur, initial encounter for closed fracture Condition: Stable Disposition: ADMITTED INPATIENT Admitting Provider: Luz (Hospitalist) Unit Admitted: Telemetry Referrals: PILO BLACK MD [Primary Care Provider] - Follow up as needed
[2019-09-21 10:35] LABS: ABSOLUTE EOSINOPHILS # (AUTO) 0.1 10^3/uL (0.0-0.6); ABSOLUTE LYMPHOCYTES (AUTO) 2.8 10^3/uL (0.5-4.7); ABSOLUTE MONOCYTES (AUTO) 0.4 10^3/uL (0.1-1.4); ABSOLUTE NEUT (AUTO) 3.7 10^3/uL (1.7-8.2); BASOPHILS % (AUTO) 0.7 % (0-2); EOSINOPHILS % (AUTO) 1.3 % (0-6); HEMATOCRIT 31.4 % (36.0-47.0); LYMPHOCYTES % (AUTO) 40.2 % (13-45); MEAN CORPUSCULAR HEMOGLOBIN 23.2 pg (27.0-33.4); MEAN CORPUSCULAR HGB CONC 31.8 g/dL (32.0-36.0); MEAN CORPUSCULAR VOLUME 73 fl (80-97); MONOCYTES % (AUTO) 5.2 % (3-13); PLATELET COUNT 208 10^3/uL (150-450); RED CELL DISTRIBUTION WIDTH 16.7 % (11.5-14.0); SEGMENTED NEUTROPHILS % (AUTO) 52.6 % (42-78); TOTAL CELLS COUNTED % (AUTO) 100 %
[2019-09-21 10:39] LABS: INTERNATIONAL RATION (INR) 1.14; PROTHROMBIN TIME 14.8 SEC (11.4-15.4)
[2019-09-21 10:40] LABS: PARTIAL THROMBOPLASTIN TIME 26.4 SEC (23.5-35.8)
[2019-09-21 10:49] LABS: ANION GAP 7 (5-19); BLOOD UREA NITROGEN 13 mg/dL (7-20); CALCIUM 9.8 mg/dL (8.4-10.2); CARBON DIOXIDE 22 mmol/L (22-30); CHLORIDE 109 mmol/L (98-107); GLUCOSE 126 mg/dL (75-110); POTASSIUM 3.7 mmol/L (3.6-5.0)
--- NOTE | 2019-09-21 11:21 | RADIOLOGY REPORT (SQ) ---
EXAM DESCRIPTION: CT HEAD WITHOUT IMAGES COMPLETED DATE/TIME: 09/21/2019 9:56 am REASON FOR STUDY: fall on thinners COMPARISON: 03/24/2018 TECHNIQUE: Axial images acquired through the brain without intravenous contrast. Images reviewed wi th bone, brain and subdural windows. Additional sagittal and coronal reconstructions were generated. Images stored on PACS. All CT scanners at this facility use dose modulation, iterative reconstruction, and/or weight based d osing when appropriate to reduce radiation dose to as low as reasonably achievable (ALARA). [facility]: Dose Right [facility]: CareDose [facility]: Dose Right [facility]: Teradose 4D [facility]: [employer] RADIATION DOSE: CT Rad equipment meets quality standard of care and radiation dose reduction techniq ues were employed. CTDIvol: 53.2 mGy. DLP: 937 mGy-cm. mGy. LIMITATIONS: None. FINDINGS: VENTRICLES: There is moderate cerebral and cerebellar atrophy. No evidence of hydrocephal us. CEREBRUM: No masses. No hemorrhage. No midline shift. No evidence for acute infarction. Normal gra y-white matter differentiation. Severe diffuse periventricular, deep, and subcortical white matter h ypodense attenuation consistent with chronic small vessel ischemic change. There is intracranial ath erosclerosis. CEREBELLUM: No masses. No hemorrhage. No alteration of density. No evidence for acute infarction. EXTRAAXIAL SPACES: No fluid collections. No masses. ORBITS AND GLOBE: No intra- or extraconal masses. Normal contour of globe without masses. CALVARIUM: No fracture. PARANASAL SINUSES: No fluid or mucosal thickening. SOFT TISSUES: No mass or hematoma. OTHER: No other significant finding. IMPRESSION: 1. No acute intracranial hemorrhage, mass, or evidence of acute territorial infarct. 2. Severe chronic small vessel ischemic change. EVIDENCE OF ACUTE STROKE: NO. COMMENT: Quality ID # 436: Final reports with documentation of one or more dose reduction techniques (e.g., Automated exposure control, adjustment of the mA and/or kV according to patient size, use of iterative reconstruction technique) TECHNICAL DOCUMENTATION: JOB ID: [id number] 2010 [employer]- All Rights Reserved Reading location - IP/workstation name: [email or web address]
--- NOTE | 2019-09-21 11:24 | RADIOLOGY REPORT (SQ) ---
EXAM DESCRIPTION: CT CERVICAL SPINE WITHOUT IMAGES COMPLETED DATE/TIME: 09/21/2019 9:56 am REASON FOR STUDY: fall on thinners COMPARISON: 03/24/2018 TECHNIQUE: Axial images acquired through the cervical spine without intravenous contrast. Images re viewed with lung, soft tissue and bone windows. Reconstructed coronal and sagittal MPR images review ed. Images stored on PACS. All CT scanners at this facility use dose modulation, iterative reconstruction, and/or weight based d osing when appropriate to reduce radiation dose to as low as reasonably achievable (ALARA). [facility]: Dose Right [facility]: CareDose [facility]: Dose Right [facility]: Teradose 4D [facility]: Smart [employer] RADIATION DOSE: CT Rad equipment meets quality standard of care and radiation dose reduction techniq ues were employed. CTDIvol: 21.3 mGy. DLP: 382 mGy-cm. mGy. LIMITATIONS: None. FINDINGS: ALIGNMENT: Anatomic. MINERALIZATION: Normal. VERTEBRAL BODIES: No fractures or dislocation. Congenital nonunion posterior arch of C1. Mild spond ylosis with small marginal osteophytes. DISCS: Mild degenerative disc disease with loss of intervertebral disc height. No significant disc b ulge or spinal canal stenosis. FACETS, LATERAL MASSES, POSTERIOR ELEMENTS: No fractures. No dislocation. No acute findings. HARDWARE: None in the spine. VISUALIZED RIBS: No fractures. LUNG APICES AND SOFT TISSUES: No significant or acute findings. OTHER: Enlarged heterogeneous right thyroid lobe stable in appearance from previous. IMPRESSION: 1. No acute fracture or dislocation of the cervical spine. 2. Mild degenerative disc disease and spondylosis. 3. Enlarged right thyroid lobe, unchanged from prior. TECHNICAL DOCUMENTATION: JOB ID: [id number] Quality ID # [id number]: Final reports with documentation of one or more dose reduction techniques (e.g., Au tomated exposure control, adjustment of the mA and/or kV according to patient size, use of iterative reconstruction technique) 2010 [employer]- All Rights Reserved Reading location - IP/workstation name: [email or web address]
--- NOTE | 2019-09-21 11:28 | RADIOLOGY REPORT (SQ) ---
EXAM DESCRIPTION: CT PELVIS WITHOUT IMAGES COMPLETED DATE/TIME: 09/21/2019 9:56 am REASON FOR STUDY: R hip pain fall COMPARISON: None. TECHNIQUE: CT scan of the pelvis performed without intravenous or oral contrast. Images reviewed wi th soft tissue and bone windows. Reconstructed coronal and sagittal MPR images reviewed. All images stored on PACS. All CT scanners at this facility use dose modulation, iterative reconstruction, and/or weight based d osing when appropriate to reduce radiation dose to as low as reasonably achievable (ALARA). [facility]: Dose Right [facility]: CareDose [facility]: Dose Right [facility]: Teradose 4D [facility]: Smart [employer] RADIATION DOSE: CT Rad equipment meets quality standard of care and radiation dose reduction techniq ues were employed. CTDIvol: 24.7 mGy. DLP: 720 mGy-cm. mGy. LIMITATIONS: None. FINDINGS: PELVIC BONES: No acute fracture. No worrisome bone lesions. VISUALIZED SPINE: No acute findings. HIP(S): There is an acute intratrochanteric fracture of the right proximal femur. Mild displacement of the greater and lesser trochanters. Mild angulation of the distal fracture fragment medially. No rmal contour of the femoral head. Normal femoroacetabular alignment. PELVIC SOFT TISSUES: No significant findings. EXTRAPELVIC SOFT TISSUES: No significant findings. OTHER: No other significant finding. IMPRESSION: Acute intertrochanteric fracture right femur. Mild displacement of the greater and less er trochanters. TECHNICAL DOCUMENTATION: JOB ID: [id number] Quality ID # [id number]: Final reports with documentation of one or more dose reduction techniques (e.g., Au tomated exposure control, adjustment of the mA and/or kV according to patient size, use of iterative reconstruction technique) 2010 [employer]- All Rights Reserved Reading location - IP/workstation name: [email or web address]
[2019-09-21] MEDS ORDERED: ONDANSETRON HCL INJ/PF 4 MG/2 ML SDV IV ONE (11:29)
[2019-09-21] MEDS ORDERED: MORPHINE SULFATE 10 MG/ML INJ IV ONE (11:29)
--- NOTE | 2019-09-21 12:37 | RADIOLOGY REPORT (SQ) ---
EXAM DESCRIPTION: CHEST SINGLE VIEW IMAGES COMPLETED DATE/TIME: 09/21/2019 12:08 pm REASON FOR STUDY: pre-op COMPARISON: 07/02/2019 EXAM PARAMETERS: NUMBER OF VIEWS: One view. TECHNIQUE: Single frontal radiographic view of the chest acquired. RADIATION DOSE: NA LIMITATIONS: Portable technique. FINDINGS: LUNGS AND PLEURA: No opacities, masses or pneumothorax. No pleural effusion. MEDIASTINUM AND HILAR STRUCTURES: Stable. HEART AND VASCULAR STRUCTURES: Heart normal in size. Normal vasculature. BONES: No acute findings. HARDWARE: None in the chest. OTHER: No other significant finding. IMPRESSION: NO ACUTE RADIOGRAPHIC FINDING IN THE CHEST. TECHNICAL DOCUMENTATION: JOB ID: [id number] 2010 [employer]- All Rights Reserved Reading location - IP/workstation name: [email or web address]
--- NOTE | 2019-09-21 12:41 | RADIOLOGY REPORT (SQ) ---
EXAM DESCRIPTION: HIP RIGHT AP/LATERAL IMAGES COMPLETED DATE/TIME: 09/21/2019 12:08 pm REASON FOR STUDY: fx. AP with cross table lateral COMPARISON: None. NUMBER OF VIEWS: Two views. TECHNIQUE: AP pelvis and additional frog-leg view of the right hip. LIMITATIONS: None. FINDINGS: Bones are osteopenic. Comminuted intertrochanteric fracture right femoral neck with valgu s angulation. Pelvis intact. IMPRESSION: Intertrochanteric fracture right femoral neck. TECHNICAL DOCUMENTATION: JOB ID: [id number] 2010 [employer]- All Rights Reserved Reading location - IP/workstation name: [email or web address]
[2019-09-21] MEDS: OXYCODONE-ACETAMINOPHEN 5-325 MG TABLET PO PRN (15:27)
[2019-09-21 15:29] LABS: CREATINE KINASE MB 1.86 ng/mL (<4.55); TROPONIN I 0.02 ng/mL
[2019-09-21] MEDS: DOCUSATE SODIUM 100 MG CAPSULE PO SCH (17:21)
[2019-09-21 17:26] LABS: ANION GAP 7 (5-19); BLOOD UREA NITROGEN 12 mg/dL (7-20); CALCIUM 9.8 mg/dL (8.4-10.2); CARBON DIOXIDE 22 mmol/L (22-30); CHLORIDE 107 mmol/L (98-107); GLUCOSE 107 mg/dL (75-110)
[2019-09-21 17:30] LABS: POTASSIUM 4.3 mmol/L (3.6-5.0)
--- NOTE | 2019-09-21 17:36 | PDOC H&P ---
History of Present Illness Admission Date/PCP: 09/21/19 12:29 PILO BLACK Patient complains of: Fall History of Present Illness: RICHARD VEGA is a 84 year old female This is a 84-year-old female of Dr. Black with a history of the dementia atrial fibrillation on Eliquis hypertension hypothyroidism and vitamin D deficiency she chronically slow mental state per family who presented to the ER via EMS after a chief complaint of the fall. EMS reports the family states that she falls all the times. Today's been EMS called because she fall which between 2 objects in the home and the family could not get to her or help her up EMS was able to extract her. They report this he was ambulatory on the skin and complains of right thigh pain Patient and family do not report hitting her head or any loss of consciousness Patient initial work-up in the emergency departments suggest a right hip fracture and also call the orthopedic and suggest to admit in a cardiac and medical clearance When I saw the patient on the floor patient is alert awake but underlying dementia is Past Medical History Cardiac Medical History: Reports: Congestive Heart Failure, Hypertension - medicated Denies: Atrial Fibrillation, Coronary Artery Disease, Myocardial Infarction, Hyperlipidema, Peripheral Vascular Disease, Heart Murmur Pulmonary Medical History: Denies: Asthma, Bronchitis, Chronic Obstructive Pulmonary Disease (COPD), Pneumonia, Tuberculosis Neurological Medical History: Denies: Seizures GI Medical History: Denies: Hepatitis, Hiatal Hernia Psychiatric Medical History: Reports: Dementia Denies: Depression Hematology: Denies: Anemia, Sickle Cell Disease Past Surgical History Past Surgical History: Reports: Tubal Ligation Denies: Amputation, Appendectomy, Section, Cholecystectomy, Coronary Artery Bypass Graft, Gastric Bypass Surgery, Herniorrhaphy, Hysterectomy, Mastectomy, Pacemaker, Tonsillectomy Social History Information Source: Patient Smoking Status: Never Smoker Electronic Cigarette use?: No Frequency of Alcohol Use: None Hx Recreational Drug Use: No Drugs: None Hx Prescription Drug Abuse: No Family History Family History: Reviewed & Not Pertinent Parental Family History Reviewed: Yes Children Family History Reviewed: Yes Sibling(s) Family History Reviewed.: Yes Medication/Allergy Home Medications: Omeprazole 20 mg PO DAILY 03/22/13 Multivitamin [Tab-A-Josephine (Multiple Vitamin) Tablet] 1 tab PO DAILY 04/20/18 Apixaban [Eliquis 2.5 mg Tablet] 2.5 mg PO BID #60 tablet 04/24/18 Ascorbic Acid [Vitamin C 500 mg Tablet] 500 mg PO DAILY 09/21/19 Diltiazem HCl [Cardizem Cd 180 mg Capsule] 180 mg PO BID 09/21/19 Ferrous Sulfate [Feosol 325 mg Tablet] 325 mg PO DAILY 09/21/19 Furosemide [Lasix 20 mg Tablet] 20 mg PO DAILY 09/21/19 Losartan Potassium [Cozaar 50 mg Tablet] 50 mg PO DAILY 09/21/19 Megestrol Acetate [Megace 20 mg Tablet] 40 mg PO DAILY 09/21/19 Allergies/Adverse Reactions: lisinopril Adverse Reaction (Mild, Verified 07/02/19 20:40) cough Review of Systems Constitutional: ABSENT: chills, fever(s), headache(s), weight gain, weight loss Eyes: ABSENT: visual disturbances Ears: ABSENT: hearing changes Cardiovascular: ABSENT: chest pain, dyspnea on exertion, edema, orthropnea, palpitations Respiratory: ABSENT: cough, hemoptysis Gastrointestinal: ABSENT: abdominal pain, constipation, diarrhea, hematemesis, hematochezia, nausea, vomiting Genitourinary: ABSENT: dysuria, hematuria Musculoskeletal: ABSENT: joint swelling Integumentary: ABSENT: rash, wounds Neurological: ABSENT: abnormal gait, abnormal speech, confusion, dizziness, focal weakness, syncope Psychiatric: ABSENT: anxiety, depression, homidical ideation, suicidal ideation Endocrine: ABSENT: cold intolerance, heat intolerance, menstrual abnormalities, polydipsia, polyuria Hematologic/Lymphatic: ABSENT: easy bleeding, easy bruising, lymphadenopathy Physical Exam Vital Signs: Temp Pulse Resp BP Pulse Ox 98.2 F 92 18 153/90 H 97 09/21/19 15:20 09/21/19 15:20 09/21/19 15:20 09/21/19 15:20 09/21/19 15:20 Intake & Output 09/20/19 09/21/19 09/22/19 06:59 06:59 06:59 Weight 68.8 kg General appearance: PRESENT: no acute distress, well-developed, well-nourished Head exam: PRESENT: atraumatic, normocephalic Eye exam: PRESENT: conjunctiva pink, EOMI, PERRLA. ABSENT: scleral icterus Ear exam: PRESENT: normal external ear exam Mouth exam: PRESENT: moist, tongue midline Neck exam: PRESENT: full ROM. ABSENT: carotid bruit, JVD, lymphadenopathy, thyromegaly Respiratory exam: PRESENT: decreased breath sounds Cardiovascular exam: PRESENT: RRR. ABSENT: diastolic murmur, rubs, systolic murmur Pulses: PRESENT: normal dorsalis pedis pul, +2 pedal pulses bilateral Vascular exam: PRESENT: normal capillary refill GI/Abdominal exam: PRESENT: normal bowel sounds, soft. ABSENT: distended, guarding, mass, organolmegaly, rebound, tenderness Rectal exam: PRESENT: deferred Extremities exam: ABSENT: pedal edema Additional comments: Right lower extremity is externally rotated the hip area was slightly shorter than the left extremities Neurological exam: PRESENT: alert, awake. ABSENT: motor sensory deficit Psychiatric exam: PRESENT: appropriate affect, normal mood. ABSENT: homicidal ideation, suicidal ideation Skin exam: PRESENT: dry, intact, warm. ABSENT: cyanosis, rash Results Laboratory Results: 09/21/19 10:18 09/21/19 09/21/19 09/21/19 10:18 10:18 10:18 WBC 7.0 RBC 4.30 Hgb 10.0 L Hct 31.4 L MCV 73 L MCH 23.2 L MCHC 31.8 L RDW 16.7 H Plt Count 208 Seg Neutrophils % 52.6 Sodium 137.6 Potassium 3.7 Chloride 109 H Carbon Dioxide 22 Anion Gap 7 BUN 13 Creatinine 0.89 Est GFR ( Amer) > 60 Est GFR (Non-Af Amer) Glucose 126 H Calcium 9.8 TSH 2.62 09/21/19 10:18 WBC RBC Hgb Hct MCV MCH MCHC RDW Plt Count Seg Neutrophils % Sodium Cancelled Potassium Cancelled Chloride Cancelled Carbon Dioxide Cancelled Anion Gap Cancelled BUN Cancelled Creatinine Cancelled Est GFR ( Amer) Cancelled Est GFR (Non-Af Amer) Cancelled Glucose Cancelled Calcium Cancelled TSH 09/21/19 09/21/19 10:18 10:18 Creatine Kinase 62 CK-MB (CK-2) 1.86 Troponin I 0.020 Impressions: Cervical Spine CT 09/21/19 10:21 IMPRESSION: 1. No acute fracture or dislocation of the cervical spine. 2. Mild degenerative disc disease and spondylosis. 3. Enlarged right thyroid lobe, unchanged from prior. Head CT 09/21/19 10:21 IMPRESSION: 1. No acute intracranial hemorrhage, mass, or evidence of acute territorial infarct. 2. Severe chronic small vessel ischemic change. EVIDENCE OF ACUTE STROKE: NO. Pelvis CT 09/21/19 10:21 IMPRESSION: Acute intertrochanteric fracture right femur. Mild displacement of the greater and lesser trochanters. Hip/Pelvis X-Ray 09/21/19 11:50 IMPRESSION: Intertrochanteric fracture right femoral neck. Chest X-Ray 09/21/19 11:54 IMPRESSION: NO ACUTE RADIOGRAPHIC FINDING IN THE CHEST. Assessment & Plan - Diagnosis (1) Intertrochanteric fracture Qualifiers: Encounter type: initial encounter Fracture type: closed Fracture alignment: displaced Laterality: right Qualified Code(s): S72.141A - Displaced intertrochanteric fracture of right femur, initial encounter for closed fracture Is this a current diagnosis for this admission?: Yes Plan: Consult the Ortho (2) Chronic atrial fibrillation Is this a current diagnosis for this admission?: Yes Plan: Currently on Guarnic we will consult the cardiology Hold the Eliquis consult the cardiology (3) Dementia Qualifiers: Dementia type: unspecified type Is this a current diagnosis for this admission?: Yes (4) HTN (hypertension) Qualifiers: Hypertension type: essential hypertension Qualified Code(s): I10 - Essential (primary) hypertension Is this a current diagnosis for this admission?: Yes (5) Hyperthyroidism, subclinical Is this a current diagnosis for this admission?: Yes (6) Osteoarthritis involving multiple joints on both sides of body Is this a current diagnosis for this admission?: Yes (7) Vitamin D deficiency Is this a current diagnosis for this admission?: Yes - Time Time Spent: 50 to 70 Minutes Medications reviewed and adjusted accordingly: Yes Anticipated Discharge Disposition: Jail Facility Anticipated Discharge Timeframe: within 72 hours - Inpatient Certification Based on my medical assessment, after consideration of the patient's com orbidities, presenting symptoms, or acuity I expect that the services needed warrant INPATIENT care.: Yes I certify that my determination is in accordance with my understanding of Medicare's requirements for reasonable and necessary INPATIENT services [42 CFR 412.3e].: Yes Medical Necessity: Significant Comorbidiites Make Outpatient Treatment Too Risky, Need Close Monitoring Due to Risk of Patient Decompensation, Need for Surgery Post Hospital Care: D/C [employer] Documentation - Plan Summary Plan Summary: Admit the patient's and see MD orders
--- NOTE | 2019-09-21 19:43 | EKG REPORT ---
SEVERITY:- ABNORMAL ECG - SINUS RHYTHM LVH WITH SECONDARY REPOLARIZATION ABNORMALITY : Confirmed by: Dustin Fuller MD 21-Sep-2019 19:43:16
[2019-09-21 20:10] LABS: CREATINE KINASE MB 1.83 ng/mL (<4.55); TROPONIN I 0.024 ng/mL
--- NOTE | 2019-09-21 20:47 | XCELERA REPORT ---
[address] [address] Transthoracic Echocardiogram Report Name: RICHARD VEGA Age: 84 yrs Gender: Female : 1935 Patient Status: Inpatient Patient Location: [facility]A Study Date: 09/21/2019 05:11 PM Height: 64 in Weight: 151 lb BSA: 1.7 m2 Procedure: A two-dimensional transthoracic echocardiogram with color flow and Doppler was performed. The study was technically difficult with many images being suboptimal in quality. Reason For Study: ATRIAL FIBRILLATION / PRE-OP History: ATRIAL FIBRILLATION / PRE-OP. Ordering Physician: PILO BLACK Performed By: Zahraa Bailey Interpretation Summary The left ventricle is normal in size. There is mild concentric left ventricular hypertrophy. Left ventricular systolic function is normal. LV EF is > than 65% Doppler measurements suggest pseudonormalized left ventricular relaxation, which is associated with grade II/IV or mild to moderate diastolic dysfunction The left ventricular wall motion is normal. There is no thrombus. Probably no ASD ,VSD,or PFO. The right ventricle is normal in size and function. The right atrium is normal. The left atrial size is normal. There is no evidence of mitral valve prolapse. There is no vegetation seen on the mitral valve. There is no mitral valve stenosis. There is no aortic valvular vegetation. There is mild aortic stenosis There is a peak gradient of 28 mm of Hg. No hemodynamically significant valvular aortic stenosis. There is no LVOT obstruction. There is a trace to mild amount of aortic regurgitation There is no tricuspid stenosis. There is a trace amount of tricuspid regurgitation There is mild pulmonary hypertension by echo RVSP is 38 mm of Hg ,with RA mean of 10. There is no pulmonic valvular stenosis. There is no pulmonic valvular regurgitation. The aortic root is normal size. The inferior vena cava was not well visualized There is no pericardial effusion. MMode/2D Measurements & Calculations RVDd: 2.4 cm LVIDd: 3.2 cm FS: 35.4 % Ao root diam: 3.1 cm IVSd: 1.2 cm LVIDs: 2.1 cm EDV(Teich): 40.2 ml Ao root area: 7.4 cm2 LVPWd: 0.99 cm ESV(Teich): 13.6 ml EF(Teich): 66.3 % Doppler Measurements & Calculations MV E max jose maria: Ao V2 max: AI max jose maria: LV V1 max P.9 cm/sec 264.8 cm/sec 452.8 cm/sec 33.8 mmHg MV A max jose maria: Ao max PG: AI max P.1 mmHg LV V1 max: 128.5 cm/sec 28.0 mmHg AI dec slope: 290.9 cm/sec MV E/A: 0.37 264.7 cm/sec2 AI P1/2t: 500.9 msec PA V2 max: PI end-d jose maria: TR max jose maria: 120.6 cm/sec 103.5 cm/sec 265.2 cm/sec PA max P.8 mmHg TR max P.3 mmHg Left Ventricle The left ventricle is normal in size. There is mild concentric left ventricular hypertrophy. Left ventricular systolic function is normal. LV EF is > than 65%. Doppler measurements suggest pseudonormalized left ventricular relaxation, which is associated with grade II/IV or mild to moderate diastolic dysfunction. The left ventricular wall motion is normal. There is no thrombus. Probably no ASD ,VSD,or PFO. Right Ventricle The right ventricle is normal in size and function. Atria The right atrium is normal. The left atrial size is normal. Mitral Valve There is no evidence of mitral valve prolapse. There is no vegetation seen on the mitral valve. There is no mitral valve stenosis. There is a trace amount of mitral regurgitation. Aortic Valve There is no aortic valvular vegetation. There is mild aortic stenosis. There is a peak gradient of 28 mm of Hg. No hemodynamically significant valvular aortic stenosis. There is no LVOT obstruction. There is a trace to mild amount of aortic regurgitation. Tricuspid Valve There is no tricuspid stenosis. There is a trace amount of tricuspid regurgitation. There is mild pulmonary hypertension by echo. RVSP is 38 mm of Hg ,with RA mean of 10. Pulmonic Valve There is no pulmonic valvular stenosis. There is no pulmonic valvular regurgitation. Great Vessels The aortic root is normal size. The inferior vena cava was not well visualized. Effusions There is no pericardial effusion. : PILO BLACK Lakshmi
[2019-09-21] MEDS: FAMOTIDINE INJ/PF 20 MG/2 ML SDV IV SCH (21:07)
[2019-09-21] MEDS: DILTIAZEM HCL 180 MG CAPSULE.CR PO SCH (21:07)
[2019-09-22] MEDS: OXYCODONE-ACETAMINOPHEN 5-325 MG TABLET PO PRN (01:06)
[2019-09-22 02:08] LABS: CREATINE KINASE MB 1.58 ng/mL (<4.55); TROPONIN I 0.025 ng/mL
[2019-09-22] MEDS ORDERED: BUPIVACAINE HCL 0.5 % INJ/PF 30 ML SDV ONE (07:49)
[2019-09-22 07:50] LABS: ABSOLUTE LYMPHOCYTES (AUTO) 0.9 10^3/uL (0.5-4.7); ABSOLUTE MONOCYTES (AUTO) 0.7 10^3/uL (0.1-1.4); ABSOLUTE NEUT (AUTO) 8.3 10^3/uL (1.7-8.2); BASOPHILS % (AUTO) 0.3 % (0-2); HEMOGLOBIN 9.7 g/dL (12.0-15.5); LYMPHOCYTES % (AUTO) 9.5 % (13-45); MEAN CORPUSCULAR HEMOGLOBIN 23.4 pg (27.0-33.4); MEAN CORPUSCULAR HGB CONC 32.4 g/dL (32.0-36.0); MEAN CORPUSCULAR VOLUME 72 fl (80-97); MONOCYTES % (AUTO) 7.5 % (3-13); PLATELET COUNT 207 10^3/uL (150-450); RED BLOOD COUNT 4.15 10^6/uL (3.72-5.28); RED CELL DISTRIBUTION WIDTH 16.4 % (11.5-14.0); SEGMENTED NEUTROPHILS % (AUTO) 82.7 % (42-78); TOTAL CELLS COUNTED % (AUTO) 100 %
[2019-09-22] MEDS ORDERED: SUGAMMADEX SODIUM 200 MG/2 ML SDV IV ONE (07:50)
[2019-09-22] MEDS ORDERED: FENTANYL CITRATE INJ/PF 100 MCG/2 ML AMPUL ONE (07:50)
[2019-09-22] MEDS ORDERED: MIDAZOLAM 2 MG/2 ML INJ ONE (07:50)
[2019-09-22] MEDS ORDERED: PROPOFOL INJ 200 MG/20 ML VIAL IV ONE (07:50)
--- NOTE | 2019-09-22 08:03 | PDOC CONSULTATION ---
Consultation Consult Date: 09/22/19 Attending physician:: VIRGEN MERA Provider Consulted: PRECIOUS WATTERS Consult reason:: Right hip displaced intertrochanteric fracture History of Present Illness Admission Date/PCP: 09/21/19 12:29 PILO BLACK Patient complains of: Right hip pain and inability to stand or ambulate History of Present Illness: RICHARD VEGA is a 84 year old female with atrial fibrillation on Eliquis. The patient has moderate dementia. She lives at home with her family. She sustained a low-energy fall while attempting to use the toilet resulting in a displaced fracture of the right hip. She has been admitted to the medical service and optimized for internal fixation of the hip. Past Medical History Cardiac Medical History: Reports: Congestive Heart Failure, Hypertension - medicated Denies: Atrial Fibrillation, Coronary Artery Disease, Myocardial Infarction, Hyperlipidema, Peripheral Vascular Disease, Heart Murmur Pulmonary Medical History: Denies: Asthma, Bronchitis, Chronic Obstructive Pulmonary Disease (COPD), Pneumonia, Tuberculosis Neurological Medical History: Denies: Seizures GI Medical History: Denies: Hepatitis, Hiatal Hernia Psychiatric Medical History: Reports: Dementia Denies: Depression Hematology: Denies: Anemia, Sickle Cell Disease Past Surgical History Past Surgical History: Reports: Tubal Ligation Denies: Amputation, Appendectomy, Section, Cholecystectomy, Coronary Artery Bypass Graft, Gastric Bypass Surgery, Herniorrhaphy, Hysterectomy, Mastectomy, Pacemaker, Tonsillectomy Social History Lives with: Family Smoking Status: Never Smoker Electronic Cigarette use?: No Frequency of Alcohol Use: None Hx Recreational Drug Use: No Drugs: None Hx Prescription Drug Abuse: No Family History Family History: Reviewed & Not Pertinent Parental Family History Reviewed: Yes Children Family History Reviewed: Yes Sibling(s) Family History Reviewed.: No Medication/Allergy Home Medications: Omeprazole 20 mg PO DAILY 03/22/13 Multivitamin [Tab-A-Josephine (Multiple Vitamin) Tablet] 1 tab PO DAILY 04/20/18 Apixaban [Eliquis 2.5 mg Tablet] 2.5 mg PO BID #60 tablet 04/24/18 Ascorbic Acid [Vitamin C 500 mg Tablet] 500 mg PO DAILY 09/21/19 Diltiazem HCl [Cardizem Cd 180 mg Capsule] 180 mg PO BID 09/21/19 Ferrous Sulfate [Feosol 325 mg Tablet] 325 mg PO DAILY 09/21/19 Furosemide [Lasix 20 mg Tablet] 20 mg PO DAILY 09/21/19 Losartan Potassium [Cozaar 50 mg Tablet] 50 mg PO DAILY 09/21/19 Megestrol Acetate [Megace 20 mg Tablet] 40 mg PO DAILY 09/21/19 Allergies/Adverse Reactions: lisinopril Adverse Reaction (Mild, Verified 07/02/19 20:40) cough Review of Systems ROS unobtainable: Other - As per HPI Physical Exam Vital Signs: Temp Pulse Resp BP Pulse Ox 97.4 F 99 17 132/86 H 97 09/22/19 07:44 09/22/19 07:44 09/22/19 07:44 09/22/19 07:44 09/22/19 07:44 Intake & Output 09/21/19 09/22/19 09/23/19 06:59 06:59 06:59 Weight 68.9 kg General appearance: PRESENT: no acute distress, well-developed, well-nourished Head exam: PRESENT: atraumatic, normocephalic Neck exam: ABSENT: carotid bruit, JVD, lymphadenopathy, thyromegaly Respiratory exam: PRESENT: clear to auscultation avi. ABSENT: rales, rhonchi, wheezes Cardiovascular exam: PRESENT: RRR Pulses: PRESENT: +2 pedal pulses bilateral GI/Abdominal exam: PRESENT: normal bowel sounds, soft. ABSENT: distended, guarding, mass, organolmegaly, rebound, tenderness Rectal exam: PRESENT: deferred Musculoskeletal exam: PRESENT: other - The right leg is shortened and externally rotated. The patient is able to dorsiflex and plantarflex the ankle. Sensation is intact to touch. 2+ DP and PT pulses. Neurological exam: PRESENT: alert Results Laboratory Results: 09/21/19 16:50 09/21/19 09/21/19 09/21/19 10:18 10:18 10:18 WBC 7.0 RBC 4.30 Hgb 10.0 L Hct 31.4 L MCV 73 L MCH 23.2 L MCHC 31.8 L RDW 16.7 H Plt Count 208 Seg Neutrophils % 52.6 Sodium 137.6 Potassium 3.7 Chloride 109 H Carbon Dioxide 22 Anion Gap 7 BUN 13 Creatinine 0.89 Est GFR ( Amer) > 60 Est GFR (Non-Af Amer) Glucose 126 H Calcium 9.8 TSH 2.62 09/21/19 09/21/19 10:18 16:50 WBC RBC Hgb Hct MCV MCH MCHC RDW Plt Count Seg Neutrophils % Sodium Cancelled 136.2 L Potassium Cancelled 4.3 Chloride Cancelled 107 Carbon Dioxide Cancelled 22 Anion Gap Cancelled 7 BUN Cancelled 12 Creatinine Cancelled 0.75 Est GFR ( Amer) Cancelled > 60 Est GFR (Non-Af Amer) Cancelled Glucose Cancelled 107 Calcium Cancelled 9.8 TSH 09/21/19 09/21/19 09/21/19 10:18 10:18 19:30 Creatine Kinase 62 61 CK-MB (CK-2) 1.86 Troponin I 0.020 09/21/19 09/22/19 09/22/19 19:30 01:31 01:31 Creatine Kinase 69 CK-MB (CK-2) 1.83 1.58 Troponin I 0.024 0.025 Impressions: Cervical Spine CT 09/21/19 10:21 IMPRESSION: 1. No acute fracture or dislocation of the cervical spine. 2. Mild degenerative disc disease and spondylosis. 3. Enlarged right thyroid lobe, unchanged from prior. Head CT 09/21/19 10:21 IMPRESSION: 1. No acute intracranial hemorrhage, mass, or evidence of acute territorial infarct. 2. Severe chronic small vessel ischemic change. EVIDENCE OF ACUTE STROKE: NO. Pelvis CT 09/21/19 10:21 IMPRESSION: Acute intertrochanteric fracture right femur. Mild displacement of the greater and lesser trochanters. Hip/Pelvis X-Ray 09/21/19 11:50 IMPRESSION: Intertrochanteric fracture right femoral neck. Chest X-Ray 09/21/19 11:54 IMPRESSION: NO ACUTE RADIOGRAPHIC FINDING IN THE CHEST. Assessment & Plan - Diagnosis (1) Intertrochanteric fracture Qualifiers: Encounter type: initial encounter Fracture type: closed Fracture alignment: displaced Laterality: right Qualified Code(s): S72.141A - Displaced intertrochanteric fracture of right femur, initial encounter for closed fracture Is this a current diagnosis for this admission?: Yes - Time Time Spent: 30 to 50 Minutes Anticipated discharge: SNF Anticipated DC Timeframe: within 48 hours - Plan Summary Plan Summary: The patient has sustained a displaced unstable intertrochanteric fracture of the right hip. I have recommended internal fixation with a cephalo-medullary gamma nail. Risks, benefits, and alternatives were discussed with the patient's daughter. Risks include the risk of with anesthesia, the risk of infection, the risk of injury to nerves and vessels, the risk of nonunion and malunion, the possible need for additional surgery, and the possible need for blood transfusion. An opportunity for questions was provided to the patient's daughter. All questions were answered to her satisfaction. The patient's daughter expressed understanding and wishes to proceed with surgery.
--- NOTE | 2019-09-22 08:24 | EKG REPORT ---
SEVERITY:- ABNORMAL ECG - SINUS RHYTHM LEFT VENTRICULAR HYPERTROPHY : Confirmed by: Dustin Fuller MD 22-Sep-2019 08:23:39
[2019-09-22] MEDS ORDERED: CEFAZOLIN INJ 1 GM VIAL ONE (08:45)
[2019-09-22] MEDS ORDERED: MORPHINE SULFATE 10 MG/ML INJ IV PRN (09:19)
[2019-09-22] MEDS ORDERED: ONDANSETRON HCL INJ/PF 4 MG/2 ML SDV IV PRN (09:19)
[2019-09-22] MEDS ORDERED: OXYCODONE-ACETAMINOPHEN 5-325 MG TABLET PO PRN ×2 (09:19)
[2019-09-22] MEDS ORDERED: FENTANYL CITRATE INJ/PF 100 MCG/2 ML AMPUL IV PRN ×2 (09:19)
--- NOTE | 2019-09-22 09:58 | Operative Report ---
Operative Report DATE OF SURGERY: 09/22/19 PREOPERATIVE DIAGNOSIS: Right hip displaced intertrochanteric fracture POSTOPERATIVE DIAGNOSIS: Same OPERATION: Cephalo-medullary gamma nail internal fixation right intertrochanteric fracture SURGEON: PRECIOUS WATTERS ANESTHESIA: GA COMPLICATIONS: None ESTIMATED BLOOD LOSS: 100 cc INTRAOPERATIVE FINDINGS: Same PROCEDURE: Patient is for procedure: The patient is an 84-year-old woman who sustained a displaced intertrochanteric fracture of the right hip as a result of a low- energy fall at home. Description of procedure: Following the induction of a general anesthetic and administration of 2 g of Ancef, the patient was positioned supine on the fracture table. All bony prominences were padded. Reduction of the fracture was performed through the fracture table under image intensification. Anatomic latter-day of fracture alignment was obtained. The right lower extremity was then sterilely prepped with ChloraPrep and draped in standard fashion. Incision was made proximal to the trochanter. A sharp incision was performed through skin with electrocautery through the subcutaneous tissues. A small fascial opening was made. Guidewire was placed centrally through the trochanter and then overreamed. Gamma nail was placed under image intensification. Guidewire was placed through the gamma nail jig centrally into the femoral head. The guidewire was then overreamed and 100 mm lag screw was placed. The lag screw was locked dynamically. A separate incision was made distally and the gamma nail was locked in static mode. Image intensification was brought in which confirmed anatomic alignment of the fracture and correct placement of implants. The wounds were copiously irrigated. The fascia was reapproximated with 2-0 Vicryl suture. The subcutaneous tissue was closed with 2-0 Vicryl suture. The skin was reapproximated with a 3-0 Monocryl suture. Dermabond Prineo was used on the skin layer. A sterile dressing was then applied. The patient tolerated the procedure well without complication and was brought recovery in stable condition.
[2019-09-22] MEDS ORDERED: ENOXAPARIN SODIUM INJ 40 MG/0.4 ML DISP.SYRIN SUBCUT SCH (10:00)
--- NOTE | 2019-09-22 10:09 | RADIOLOGY REPORT (SQ) ---
EXAM DESCRIPTION: NO CHG FLUORO; HIP RIGHT AP/LATERAL IMAGES COMPLETED DATE/TIME: 09/22/2019 9:31 am REASON FOR STUDY: RIGHT HIP NAILING COMPARISON: None. FLUOROSCOPY TIME: 0.6 minutes 3 images saved to PACS. TECHNIQUE: Intra-operative images acquired during surgical procedure to evaluate progress. NUMBER OF IMAGES: 3 LIMITATIONS: None. FINDINGS: Rakan and dynamic hip compression screw fixation of femoral neck fracture. Alignment is michael tomic. IMPRESSION: IMAGE(S) OBTAINED DURING PROCEDURE. COMMENT: Quality ID [id number]: Final reports for procedures using fluoroscopy that document radiation exp osure indices, or exposure time and number of fluorographic images (if radiation exposure indices are not available) Please consult full operative report of the attending physician for description of the procedure. TECHNICAL DOCUMENTATION: JOB ID: [id number] 2010 [employer]- All Rights Reserved Reading location - IP/workstation name: [email or web address]
--- NOTE | 2019-09-22 10:09 | RADIOLOGY REPORT (SQ) ---
EXAM DESCRIPTION: NO CHG FLUORO; HIP RIGHT AP/LATERAL IMAGES COMPLETED DATE/TIME: 09/22/2019 9:31 am REASON FOR STUDY: RIGHT HIP NAILING COMPARISON: None. FLUOROSCOPY TIME: 0.6 minutes 3 images saved to PACS. TECHNIQUE: Intra-operative images acquired during surgical procedure to evaluate progress. NUMBER OF IMAGES: 3 LIMITATIONS: None. FINDINGS: Rakan and dynamic hip compression screw fixation of femoral neck fracture. Alignment is michael tomic. IMPRESSION: IMAGE(S) OBTAINED DURING PROCEDURE. COMMENT: Quality ID [id number]: Final reports for procedures using fluoroscopy that document radiation exp osure indices, or exposure time and number of fluorographic images (if radiation exposure indices are not available) Please consult full operative report of the attending physician for description of the procedure. TECHNICAL DOCUMENTATION: JOB ID: [id number] 2010 [employer]- All Rights Reserved Reading location - IP/workstation name: [email or web address]
[2019-09-22] MEDS: FUROSEMIDE 20 MG TABLET PO SCH ×2 (10:36→16:33)
[2019-09-22] MEDS: ASCORBIC ACID 500 MG TABLET PO SCH ×2 (10:36→16:34)
[2019-09-22] MEDS: LOSARTAN POTASSIUM 50 MG TABLET PO SCH ×2 (10:36→16:33)
[2019-09-22] MEDS: FAMOTIDINE INJ/PF 20 MG/2 ML SDV IV SCH ×2 (10:36→21:35)
[2019-09-22] MEDS: DOCUSATE SODIUM 100 MG CAPSULE PO SCH ×3 (10:36→17:05)
[2019-09-22] MEDS: MULTIVITAMIN TABLET PO SCH ×2 (10:36→16:34)
[2019-09-22] MEDS: DILTIAZEM HCL 180 MG CAPSULE.CR PO SCH ×3 (10:36→21:35)
--- NOTE | 2019-09-22 10:49 | PDOC PROGRESS REPORT ---
Subjective Progress Note for:: 09/22/19 Subjective:: Patient is all echocardiogram was stable Orthopedic surgery taken to the operating rooms According to nursing staff no other concerns Reason For Visit: RT HIP FX Physical Exam Vital Signs: Temp Pulse Resp BP Pulse Ox 97.4 F 99 17 132/86 H 97 09/22/19 07:44 09/22/19 07:44 09/22/19 07:44 09/22/19 07:44 09/22/19 07:44 Intake & Output 09/21/19 09/22/19 09/23/19 06:59 06:59 06:59 Intake Total 500 Output Total 50 Balance 450 Weight 68.9 kg Results Laboratory Results: 09/22/19 07:04 09/21/19 16:50 09/21/19 09/21/19 09/21/19 10:18 10:18 10:18 WBC RBC Hgb Hct MCV MCH MCHC RDW Plt Count Seg Neutrophils % Sodium 137.6 Cancelled Potassium 3.7 Cancelled Chloride 109 H Cancelled Carbon Dioxide 22 Cancelled Anion Gap 7 Cancelled BUN 13 Cancelled Creatinine 0.89 Cancelled Est GFR ( Amer) > 60 Cancelled Est GFR (Non-Af Amer) Cancelled Glucose 126 H Cancelled Calcium 9.8 Cancelled Magnesium TSH 2.62 09/21/19 09/22/19 09/22/19 16:50 07:04 07:04 WBC 10.0 RBC 4.15 Hgb 9.7 L Hct 30.0 L MCV 72 L MCH 23.4 L MCHC 32.4 RDW 16.4 H Plt Count 207 Seg Neutrophils % 82.7 H Sodium 136.2 L Potassium 4.3 Chloride 107 Carbon Dioxide 22 Anion Gap 7 BUN 12 Creatinine 0.75 Est GFR ( Amer) > 60 Est GFR (Non-Af Amer) Glucose 107 Calcium 9.8 Magnesium 1.9 TSH 09/21/19 09/21/19 09/21/19 10:18 10:18 19:30 Creatine Kinase 62 61 CK-MB (CK-2) 1.86 Troponin I 0.020 NT-Pro-B Natriuret Pep 09/21/19 09/22/19 09/22/19 19:30 01:31 01:31 Creatine Kinase 69 CK-MB (CK-2) 1.83 1.58 Troponin I 0.024 0.025 NT-Pro-B Natriuret Pep 09/22/19 07:04 Creatine Kinase CK-MB (CK-2) Troponin I NT-Pro-B Natriuret Pep 466 H Impressions: Cervical Spine CT 09/21/19 10:21 IMPRESSION: 1. No acute fracture or dislocation of the cervical spine. 2. Mild degenerative disc disease and spondylosis. 3. Enlarged right thyroid lobe, unchanged from prior. Head CT 09/21/19 10:21 IMPRESSION: 1. No acute intracranial hemorrhage, mass, or evidence of acute territorial infarct. 2. Severe chronic small vessel ischemic change. EVIDENCE OF ACUTE STROKE: NO. Pelvis CT 09/21/19 10:21 IMPRESSION: Acute intertrochanteric fracture right femur. Mild displacement of the greater and lesser trochanters. Chest X-Ray 09/21/19 11:54 IMPRESSION: NO ACUTE RADIOGRAPHIC FINDING IN THE CHEST. Fluoroscopy 09/22/19 00:00 IMPRESSION: IMAGE(S) OBTAINED DURING PROCEDURE. Hip/Pelvis X-Ray 09/22/19 00:00 IMPRESSION: IMAGE(S) OBTAINED DURING PROCEDURE. Assessment & Plan - Diagnosis (1) Intertrochanteric fracture Qualifiers: Encounter type: initial encounter Fracture type: closed Fracture alignment: displaced Laterality: right Qualified Code(s): S72.141A - Displaced intertrochanteric fracture of right femur, initial encounter for closed fracture Is this a current diagnosis for this admission?: Yes (2) Chronic atrial fibrillation Is this a current diagnosis for this admission?: Yes (3) Dementia Qualifiers: Dementia type: unspecified type Is this a current diagnosis for this admission?: Yes (4) HTN (hypertension) Qualifiers: Hypertension type: essential hypertension Qualified Code(s): I10 - Essential (primary) hypertension Is this a current diagnosis for this admission?: Yes (5) Hyperthyroidism, subclinical Is this a current diagnosis for this admission?: Yes (6) Osteoarthritis involving multiple joints on both sides of body Is this a current diagnosis for this admission?: Yes (7) Vitamin D deficiency Is this a current diagnosis for this admission?: Yes - Time Time Spent with patient: 15-24 minutes Level of Care: TELE Medications reviewed and adjusted accordingly: Yes Anticipated discharge: Other Anticipated DC Timeframe: Other - Plan Summary Plan Summary: The patient is stable from the surgical standpoint will restart the Eliquis tomorrow Follow-up with the cardiology We will repeat the blood work in the morning and EKG
[2019-09-22] MEDS: CEFAZOLIN 2 GM/D5W RTU 2 GM/50 ML RTUPB IV SCH (17:21)
[2019-09-23] MEDS: CEFAZOLIN 2 GM/D5W RTU 2 GM/50 ML RTUPB IV SCH ×2 (02:00→09:43)
[2019-09-23 05:07] LABS: ABSOLUTE LYMPHOCYTES (AUTO) 1.1 10^3/uL (0.5-4.7); ABSOLUTE MONOCYTES (AUTO) 1.3 10^3/uL (0.1-1.4); ABSOLUTE NEUT (AUTO) 10.5 10^3/uL (1.7-8.2); BASOPHILS % (AUTO) 0.3 % (0-2); HEMATOCRIT 26.4 % (36.0-47.0); HEMOGLOBIN 8.5 g/dL (12.0-15.5); LYMPHOCYTES % (AUTO) 8.7 % (13-45); MEAN CORPUSCULAR HEMOGLOBIN 23.2 pg (27.0-33.4); MEAN CORPUSCULAR HGB CONC 32.1 g/dL (32.0-36.0); MEAN CORPUSCULAR VOLUME 72 fl (80-97); MONOCYTES % (AUTO) 10.2 % (3-13); PLATELET COUNT 168 10^3/uL (150-450); RED BLOOD COUNT 3.64 10^6/uL (3.72-5.28); SEGMENTED NEUTROPHILS % (AUTO) 80.8 % (42-78); TOTAL CELLS COUNTED % (AUTO) 100 %; WHITE BLOOD COUNT 13.1 10^3/uL (4.0-10.5)
[2019-09-23 05:29] LABS: BLOOD UREA NITROGEN 17 mg/dL (7-20); CALCIUM 9.3 mg/dL (8.4-10.2); CARBON DIOXIDE 24 mmol/L (22-30); CHLORIDE 107 mmol/L (98-107); GLUCOSE 139 mg/dL (75-110); POTASSIUM 4.3 mmol/L (3.6-5.0)
[2019-09-23 05:30] LABS: ANION GAP 7 (5-19)
[2019-09-23] MEDS: FAMOTIDINE INJ/PF 20 MG/2 ML SDV IV SCH ×2 (09:43→21:26)
[2019-09-23] MEDS: DILTIAZEM HCL 180 MG CAPSULE.CR PO SCH ×2 (10:02→21:22)
[2019-09-23] MEDS: LOSARTAN POTASSIUM 50 MG TABLET PO SCH (10:03)
[2019-09-23] MEDS: DOCUSATE SODIUM 100 MG CAPSULE PO SCH ×2 (10:11→20:38)
[2019-09-23] MEDS: FUROSEMIDE 20 MG TABLET PO SCH (10:12)
[2019-09-23] MEDS: APIXABAN 2.5 MG TABLET PO SCH ×2 (10:12→20:38)
[2019-09-23] MEDS: MULTIVITAMIN TABLET PO SCH (10:12)
--- NOTE | 2019-09-23 10:51 | PDOC PROGRESS REPORT ---
Subjective Progress Note for:: 09/23/19 Subjective:: Patient resting comfortably. Reports decreased pain since surgery. Reason For Visit: RT HIP FX POD # 1 s/p Gamma nail for right intertrochanteric fracture Physical Exam Vital Signs: Temp Pulse Resp BP Pulse Ox 98.0 F 102 H 17 128/70 H 92 09/23/19 06:29 09/23/19 06:29 09/23/19 06:29 09/23/19 06:29 09/23/19 06:29 Intake & Output 09/22/19 09/23/19 09/24/19 06:59 06:59 06:59 Intake Total 660 Output Total 50 Balance 610 Weight 68.9 kg 75.9 kg General appearance: PRESENT: no acute distress, well-developed, well-nourished Head exam: PRESENT: atraumatic, normocephalic Pulses: PRESENT: +2 pedal pulses bilateral Musculoskeletal exam: PRESENT: other - The surgical dressings are intact. There is no drainage. Patient is able to DF and PF the foot. Sensation intact to touch. Results Laboratory Results: 09/23/19 04:08 09/23/19 04:08 09/23/19 09/23/19 04:08 04:08 WBC 13.1 H RBC 3.64 L Hgb 8.5 L Hct 26.4 L MCV 72 L MCH 23.2 L MCHC 32.1 RDW 16.0 H Plt Count 168 Seg Neutrophils % 80.8 H Sodium 137.6 Potassium 4.3 Chloride 107 Carbon Dioxide 24 Anion Gap 7 BUN 17 Creatinine 1.12 Est GFR ( Amer) 56 L Glucose 139 H Calcium 9.3 Magnesium 2.0 09/21/19 09/21/19 09/21/19 10:18 10:18 19:30 Creatine Kinase 62 61 CK-MB (CK-2) 1.86 Troponin I 0.020 NT-Pro-B Natriuret Pep 09/21/19 09/22/19 09/22/19 19:30 01:31 01:31 Creatine Kinase 69 CK-MB (CK-2) 1.83 1.58 Troponin I 0.024 0.025 NT-Pro-B Natriuret Pep 09/22/19 09/23/19 07:04 04:08 Creatine Kinase CK-MB (CK-2) Troponin I NT-Pro-B Natriuret Pep 466 H 1320 H Impressions: Cervical Spine CT 09/21/19 10:21 IMPRESSION: 1. No acute fracture or dislocation of the cervical spine. 2. Mild degenerative disc disease and spondylosis. 3. Enlarged right thyroid lobe, unchanged from prior. Head CT 09/21/19 10:21 IMPRESSION: 1. No acute intracranial hemorrhage, mass, or evidence of acute territorial infarct. 2. Severe chronic small vessel ischemic change. EVIDENCE OF ACUTE STROKE: NO. Pelvis CT 09/21/19 10:21 IMPRESSION: Acute intertrochanteric fracture right femur. Mild displacement of the greater and lesser trochanters. Chest X-Ray 09/21/19 11:54 IMPRESSION: NO ACUTE RADIOGRAPHIC FINDING IN THE CHEST. Fluoroscopy 09/22/19 00:00 IMPRESSION: IMAGE(S) OBTAINED DURING PROCEDURE. Hip/Pelvis X-Ray 09/22/19 00:00 IMPRESSION: IMAGE(S) OBTAINED DURING PROCEDURE. Assessment & Plan - Diagnosis (1) Intertrochanteric fracture Qualifiers: Encounter type: initial encounter Fracture type: closed Fracture alignment: displaced Laterality: right Qualified Code(s): S72.141A - Displaced intertrochanteric fracture of right femur, initial encounter for closed fracture Is this a current diagnosis for this admission?: Yes - Time Critical Time spent with patient: 25-34 minutes Anticipated Discharge Disposition: [facility] Facility Anticipated Discharge Timeframe: within 48 hours - Plan Summary Plan Summary: POD # 1 s/p Gamma Nail for right intertrochanteric fracture 1. Ancef for 24 hours 2. Eliquis/ SCD for DVT prophylaxis 3. PT- WBAT with assist device Patient is stable for discharge from orthopedic standpoint. Discharge to SNF or home when stable from medical standpoint.
--- NOTE | 2019-09-23 12:43 | PDOC PROGRESS REPORT ---
Subjective Progress Note for:: 09/23/19 Subjective:: Patient was admitted for fall at home with subsequent development of right hip fracture. She was taken to surgery for ORIF right hip fracture post operatively day # 1 and she is doing fine presently as per daughter at bedside although her p.o intake has been a challenge. No reported chest pain or difficulty with breathing. No reported fever or chills. No nausea, vomiting, or abdominal pain. Reason For Visit: RT HIP FX Physical Exam Vital Signs: Temp Pulse Resp BP Pulse Ox 98.0 F 102 H 17 128/70 H 92 09/23/19 06:29 09/23/19 06:29 09/23/19 06:29 09/23/19 06:29 09/23/19 06:29 Intake & Output 09/22/19 09/23/19 09/24/19 06:59 06:59 06:59 Intake Total 660 Output Total 50 Balance 610 Weight 68.9 kg 75.9 kg General appearance: PRESENT: no acute distress Head exam: PRESENT: atraumatic, normocephalic Eye exam: PRESENT: conjunctiva pink. ABSENT: scleral icterus Mouth exam: PRESENT: moist Respiratory exam: PRESENT: clear to auscultation avi, decreased breath sounds - at lung bases Cardiovascular exam: PRESENT: irregular rhythm, +S1, +S2. ABSENT: diastolic murmur, rubs, systolic murmur Vascular exam: ABSENT: pallor GI/Abdominal exam: PRESENT: normal bowel sounds, soft. ABSENT: organolmegaly, tenderness Extremities exam: PRESENT: pedal edema Musculoskeletal exam: PRESENT: deformity - related to multiple joints involvement with arthritis Neurological exam: PRESENT: alert, awake, oriented to person, oriented to place Skin exam: PRESENT: dry, warm, other - right hip surgical site dressing is satisfactory. Results Laboratory Results: 09/23/19 04:08 09/23/19 04:08 09/22/19 09/23/19 09/23/19 07:04 04:08 04:08 WBC 13.1 H RBC 3.64 L Hgb 8.5 L Hct 26.4 L MCV 72 L MCH 23.2 L MCHC 32.1 RDW 16.0 H Plt Count 168 Seg Neutrophils % 80.8 H Sodium 137.6 Potassium 4.3 Chloride 107 Carbon Dioxide 24 Anion Gap 7 BUN 17 Creatinine 1.12 Est GFR ( Amer) 56 L Glucose 139 H Calcium 9.3 Magnesium 1.9 2.0 09/21/19 09/21/19 09/21/19 10:18 10:18 19:30 Creatine Kinase 62 61 CK-MB (CK-2) 1.86 Troponin I 0.020 NT-Pro-B Natriuret Pep 09/21/19 09/22/19 09/22/19 19:30 01:31 01:31 Creatine Kinase 69 CK-MB (CK-2) 1.83 1.58 Troponin I 0.024 0.025 NT-Pro-B Natriuret Pep 09/22/19 09/23/19 07:04 04:08 Creatine Kinase CK-MB (CK-2) Troponin I NT-Pro-B Natriuret Pep 466 H 1320 H Impressions: Cervical Spine CT 09/21/19 10:21 IMPRESSION: 1. No acute fracture or dislocation of the cervical spine. 2. Mild degenerative disc disease and spondylosis. 3. Enlarged right thyroid lobe, unchanged from prior. Head CT 09/21/19 10:21 IMPRESSION: 1. No acute intracranial hemorrhage, mass, or evidence of acute territorial infarct. 2. Severe chronic small vessel ischemic change. EVIDENCE OF ACUTE STROKE: NO. Pelvis CT 09/21/19 10:21 IMPRESSION: Acute intertrochanteric fracture right femur. Mild displacement of the greater and lesser trochanters. Chest X-Ray 09/21/19 11:54 IMPRESSION: NO ACUTE RADIOGRAPHIC FINDING IN THE CHEST. Fluoroscopy 09/22/19 00:00 IMPRESSION: IMAGE(S) OBTAINED DURING PROCEDURE. Hip/Pelvis X-Ray 09/22/19 00:00 IMPRESSION: IMAGE(S) OBTAINED DURING PROCEDURE. Assessment & Plan - Diagnosis (1) Fall at home Qualifiers: Encounter type: initial encounter Qualified Code(s): W19.XXXA - Unspecified fall, initial encounter; Y92.009 - Unspecified place in unspecified non- institutional (private) residence as the place of occurrence of the external cause Is this a current diagnosis for this admission?: Yes Plan: Continue current medication management. PT evaluation as per orthopedic team recommendation. (2) Intertrochanteric fracture Qualifiers: Encounter type: initial encounter Fracture type: closed Fracture al ignment: displaced Laterality: right Qualified Code(s): S72.141A - Displaced intertrochanteric fracture of right femur, initial encounter for closed fracture Is this a current diagnosis for this admission?: Yes Plan: Day # 1 post ORIF intervention. PT evaluation as per orthopedic team recommendation. (3) Chronic atrial fibrillation Is this a current diagnosis for this admission?: Yes Plan: Maintain on rate control medication and oral anticoagulation therapy. (4) HTN (hypertension) Qualifiers: Hypertension type: essential hypertension Qualified Code(s): I10 - Essential (primary) hypertension Is this a current diagnosis for this admission?: Yes Plan: Continue current medication management. (5) GERD (gastroesophageal reflux disease) Qualifiers: Esophagitis presence: without esophagitis Qualified Code(s): K21.9 - Gastro-esophageal reflux disease without esophagitis Is this a current diagnosis for this admission?: Yes Plan: Continue current medication management. (6) Osteoarthritis involving multiple joints on both sides of body Is this a current diagnosis for this admission?: Yes Plan: Continue current medication management. (7) Postmenopausal osteoporosis Is this a current diagnosis for this admission?: Yes Plan: Continue current medication management. (8) Vitamin D deficiency Is this a current diagnosis for this admission?: Yes Plan: Continue current medication management. (9) SDAT (senile dementia of Alzheimer's type) Is this a current diagnosis for this admission?: Yes Plan: Continue current medication management. - Time Time Spent with patient: 25-34 minutes Level of Care: MEDICAL Medications reviewed and adjusted accordingly: Yes Anticipated discharge: SNF Anticipated DC Timeframe: when bed available - Inpatient Certification Based on my medical assessment, after consideration of the patient's comorbidities, presenting symptoms, or acuity I expect that the services needed warrant INPATIENT care.: Yes I certify that my determination is in accordance with my understanding of Medicare's requirements for reasonable and necessary INPATIENT services [42 CFR 412.3e].: Yes Medical Necessity: Significant Comorbidiites Make Outpatient Treatment Too Risky, Need Close Monitoring Due to Risk of Patient Decompensation, Need For IV Fluids, Need For Continuous Telemetry Monitoring, Need for Pain Control, Need for Surgery, Risk of Complication if Not Cared For in Hospital, Risk of Diagnosis Which Will Require Inpatient Eval/Care/Monitoring Post Hospital Care: D/C or Transfer Summary - Plan Summary Plan Summary: Continue current medication management. Follow up on SNF placement for rehabilitation.
--- NOTE | 2019-09-23 13:43 | CDI QUERY ---
<CHANDLER CANNON - Last Filed: 09/23/19 13:42> CDI Query CDI Review: We are seeking further clarification of documentation to reflect the severity of illness of your patient. Per H&P: History of atrial fibrillation on Eliquis Fall Right hip displaced intertrochanteric fracture OPERATION: Cephalo-medullary gamma nail internal fixation right intertrochanteric fracture Labs: H/H on admission: 10.0 / 31.4 post-op: 8.5 / 26.4 Based on your medical judgement, can you further clarify in the Progress Notes: Acute blood loss anemia Post-op blood loss anemia Dilutional anemia Unable to determine Other Thank you for your consideration. MICHELE Al RN Clinical Drivers License Examiner Physician Advisor <PILO BLACK - Last Filed: 09/23/19 15:34> CDI Query Agree with Query: Yes - unable to determine
[2019-09-23] MEDS ORDERED: NORMAL SALINE 1000 ML 1,000 ML IV PRN ×2 (16:36→20:43)
[2019-09-23] MEDS: ASCORBIC ACID 500 MG TABLET PO SCH (17:55)
[2019-09-23] MEDS: ACETAMINOPHEN 325 MG TABLET PO PRN (21:32)
[2019-09-24 06:17] LABS: ABSOLUTE LYMPHOCYTES (AUTO) 1.3 10^3/uL (0.5-4.7); ABSOLUTE MONOCYTES (AUTO) 1.3 10^3/uL (0.1-1.4); ABSOLUTE NEUT (AUTO) 10.2 10^3/uL (1.7-8.2); BASOPHILS % (AUTO) 0.2 % (0-2); EOSINOPHILS % (AUTO) 0.1 % (0-6); HEMATOCRIT 24.3 % (36.0-47.0); LYMPHOCYTES % (AUTO) 10.2 % (13-45); MEAN CORPUSCULAR HGB CONC 31.4 g/dL (32.0-36.0); MEAN CORPUSCULAR VOLUME 73 fl (80-97); MONOCYTES % (AUTO) 10.2 % (3-13); PLATELET COUNT 142 10^3/uL (150-450); RED BLOOD COUNT 3.32 10^6/uL (3.72-5.28); RED CELL DISTRIBUTION WIDTH 15.7 % (11.5-14.0); SEGMENTED NEUTROPHILS % (AUTO) 79.3 % (42-78); TOTAL CELLS COUNTED % (AUTO) 100 %; WHITE BLOOD COUNT 12.8 10^3/uL (4.0-10.5)
[2019-09-24 06:26] LABS: ANION GAP 5 (5-19); BLOOD UREA NITROGEN 24 mg/dL (7-20); CALCIUM 9.3 mg/dL (8.4-10.2); CARBON DIOXIDE 24 mmol/L (22-30); CHLORIDE 110 mmol/L (98-107); GLUCOSE 102 mg/dL (75-110); HEMOGLOBIN 7.6 g/dL (12.0-15.5); POTASSIUM 4.4 mmol/L (3.6-5.0)
[2019-09-24] MEDS: FAMOTIDINE INJ/PF 20 MG/2 ML SDV IV SCH ×2 (09:31→22:28)
[2019-09-24] MEDS: DILTIAZEM HCL 180 MG CAPSULE.CR PO SCH ×2 (09:32→22:27)
[2019-09-24] MEDS: DOCUSATE SODIUM 100 MG CAPSULE PO SCH ×2 (09:33→17:58)
[2019-09-24] MEDS: APIXABAN 2.5 MG TABLET PO SCH ×2 (09:33→17:58)
[2019-09-24] MEDS: FUROSEMIDE 20 MG TABLET PO SCH (09:33)
[2019-09-24] MEDS: MULTIVITAMIN TABLET PO SCH (09:43)
[2019-09-24] MEDS: ASCORBIC ACID 500 MG TABLET PO SCH (09:44)
[2019-09-24] MEDS ORDERED: NORMAL SALINE 250 ML IV PRN ×2 (17:45)
--- NOTE | 2019-09-24 17:45 | PDOC PROGRESS REPORT ---
Subjective Progress Note for:: 09/24/19 Subjective:: No reported chest pain or difficulty with breathing. No reported fever or chills. Oral food intake remain a challenge. No nausea, vomiting, or abdominal pain. Reason For Visit: RT HIP FX Physical Exam Vital Signs: Temp Pulse Resp BP Pulse Ox 98.9 F 89 21 H 117/57 L 100 09/24/19 11:41 09/24/19 11:41 09/24/19 11:41 09/24/19 11:41 09/24/19 11:41 Intake & Output 09/23/19 09/24/19 09/25/19 06:59 06:59 06:59 Intake Total 660 811 240 Output Total 50 Balance 610 811 240 Weight 75.9 kg 75.9 kg Physical Exam: General appearance: PRESENT: no acute distress Head exam: PRESENT: atraumatic, normocephalic Eye exam: PRESENT: conjunctiva pink. ABSENT: pallor, sclera icterus Mouth exam: PRESENT: moist Respiratory exam: PRESENT: clear to auscultation avi, decreased breath sounds - at lung bases Cardiovascular exam: PRESENT: irregular rhythm, +S1, +S2. ABSENT: diastolic murmur, rubs, systolic murmur GI/Abdominal exam: PRESENT: normal bowel sounds, soft. ABSENT: organomegaly, tenderness Extremities exam: PRESENT: pedal edema Musculoskeletal exam: PRESENT: deformity - related to multiple joints involvemen t with arthritis Neurological exam: PRESENT: alert, awake, appropriate and cooperative with examination Skin exam: PRESENT: dry, warm, other - right hip surgical site dressing is satisfactory. Results Laboratory Results: 09/24/19 04:34 09/24/19 04:34 09/24/19 09/24/19 04:34 04:34 WBC 12.8 H RBC 3.32 L Hgb 7.6 L Hct 24.3 L MCV 73 L MCH 23.0 L MCHC 31.4 L RDW 15.7 H Plt Count 142 L Seg Neutrophils % 79.3 H Sodium 139.0 Potassium 4.4 Chloride 110 H Carbon Dioxide 24 Anion Gap 5 BUN 24 H Creatinine 1.07 Est GFR ( Amer) 59 L Glucose 102 Calcium 9.3 Magnesium 2.3 09/21/19 09/21/19 09/21/19 10:18 10:18 19:30 Creatine Kinase 62 61 CK-MB (CK-2) 1.86 Troponin I 0.020 NT-Pro-B Natriuret Pep 09/21/19 09/22/19 09/22/19 19:30 01:31 01:31 Creatine Kinase 69 CK-MB (CK-2) 1.83 1.58 Troponin I 0.024 0.025 NT-Pro-B Natriuret Pep 09/22/19 09/23/19 09/24/19 07:04 04:08 04:34 Creatine Kinase CK-MB (CK-2) Troponin I NT-Pro-B Natriuret Pep 466 H 1320 H 4540 H Impressions: Cervical Spine CT 09/21/19 10:21 IMPRESSION: 1. No acute fracture or dislocation of the cervical spine. 2. Mild degenerative disc disease and spondylosis. 3. Enlarged right thyroid lobe, unchanged from prior. Head CT 09/21/19 10:21 IMPRESSION: 1. No acute intracranial hemorrhage, mass, or evidence of acute territorial infarct. 2. Severe chronic small vessel ischemic change. EVIDENCE OF ACUTE STROKE: NO. Pelvis CT 09/21/19 10:21 IMPRESSION: Acute intertrochanteric fracture right femur. Mild displacement of the greater and lesser trochanters. Chest X-Ray 09/21/19 11:54 IMPRESSION: NO ACUTE RADIOGRAPHIC FINDING IN THE CHEST. Fluoroscopy 09/22/19 00:00 IMPRESSION: IMAGE(S) OBTAINED DURING PROCEDURE. Hip/Pelvis X-Ray 09/22/19 00:00 IMPRESSION: IMAGE(S) OBTAINED DURING PROCEDURE. Assessment & Plan - Diagnosis (1) Fall at home Qualifiers: Encounter type: initial encounter Qualified Code(s): W19.XXXA - Unspecified fall, initial encounter; Y92.009 - Unspecified place in unspecified non- institutional (private) residence as the place of occurrence of the external cause Is this a current diagnosis for this admission?: Yes (2) Intertrochanteric fracture Qualifiers: Encounter type: initial encounter Fracture type: closed Fracture alignment: displaced Laterality: right Qualified Code(s): S72.141A - Displaced intertrochanteric fracture of right femur, initial encounter for closed fracture Is this a current diagnosis for this admission?: Yes (3) Chronic atrial fibrillation Is this a current diagnosis for this admission?: Yes (4) HTN (hypertension) Qualifiers: Hypertension type: essential hypertension Qualified Code(s): I10 - Essential (primary) hypertension Is this a current diagnosis for this admission?: Yes (5) GERD (gastroesophageal reflux disease) Qualifiers: Esophagitis presence: without esophagitis Qualified Code(s): K21.9 - Gastro-esophageal reflux disease without esophagitis Is this a current diagnosis for this admission?: Yes (6) Osteoarthritis involving multiple joints on both sides of body Is this a current diagnosis for this admission?: Yes (7) Postmenopausal osteoporosis Is this a current diagnosis for this admission?: Yes (8) Vitamin D deficiency Is this a current diagnosis for this admission?: Yes (9) SDAT (senile dementia of Alzheimer's type) Is this a current diagnosis for this admission?: Yes (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 She will receive 2 units PRBC with IV Lasix 20 mg between infusion. Obtain CBC with diff in am. - Time Time Spent with patient: 25-34 minutes Level of Care: TELE Medications reviewed and adjusted accordingly: Yes Anticipated discharge: SNF Anticipated DC Timeframe: when bed available - Inpatient Certification Based on my medical assessment, after consideration of the patient's comorbidities, presenting symptoms, or acuity I expect that the services needed warrant INPATIENT care.: Yes I certify that my determination is in accordance with my understanding of Medicare's requirements for reasonable and necessary INPATIENT services [42 CFR 412.3e].: Yes Medical Necessity: Significant Comorbidiites Make Outpatient Treatment Too Risky, Need Close Monitoring Due to Risk of Patient Decompensation, Need For IV Fluids, Need For Continuous Telemetry Monitoring, Need for Surgery, Risk of Complication if Not Cared For in Hospital, Risk of Diagnosis Which Will Require Inpatient Eval/Care/Monitoring Post Hospital Care: D/C or Transfer Summary - Plan Summary Plan Summary: See attending physician orders for details. Follow up with PT and astrophysics teacher regarding SNF placement.
[2019-09-24] MEDS: LOSARTAN POTASSIUM 50 MG TABLET PO SCH (17:56)
[2019-09-24] MEDS ORDERED: FUROSEMIDE INJ/PF 20 MG/2 ML SDV IV PRN (18:54)
[2019-09-25] MEDS: ACETAMINOPHEN 325 MG TABLET PO PRN ×2 (01:48→17:46)
[2019-09-25 07:22] LABS: ABSOLUTE LYMPHOCYTES (AUTO) 1.3 10^3/uL (0.5-4.7); ABSOLUTE MONOCYTES (AUTO) 1.3 10^3/uL (0.1-1.4); ABSOLUTE NEUT (AUTO) 8.9 10^3/uL (1.7-8.2); BASOPHILS % (AUTO) 0.3 % (0-2); EOSINOPHILS % (AUTO) 0.4 % (0-6); HEMATOCRIT 32.3 % (36.0-47.0); LYMPHOCYTES % (AUTO) 11.1 % (13-45); MEAN CORPUSCULAR HEMOGLOBIN 24.2 pg (27.0-33.4); MEAN CORPUSCULAR HGB CONC 31.8 g/dL (32.0-36.0); MEAN CORPUSCULAR VOLUME 76 fl (80-97); PLATELET COUNT 148 10^3/uL (150-450); RED BLOOD COUNT 4.24 10^6/uL (3.72-5.28); RED CELL DISTRIBUTION WIDTH 16.4 % (11.5-14.0); SEGMENTED NEUTROPHILS % (AUTO) 77.2 % (42-78); TOTAL CELLS COUNTED % (AUTO) 100 %; WHITE BLOOD COUNT 11.5 10^3/uL (4.0-10.5)
[2019-09-25 07:26] LABS: ANION GAP 4 (5-19); BLOOD UREA NITROGEN 25 mg/dL (7-20); CALCIUM 8.7 mg/dL (8.4-10.2); CARBON DIOXIDE 24 mmol/L (22-30); CHLORIDE 109 mmol/L (98-107); GLUCOSE 94 mg/dL (75-110); POTASSIUM 4.6 mmol/L (3.6-5.0)
[2019-09-25 07:36] LABS: HEMOGLOBIN 10.2 g/dL (12.0-15.5)
[2019-09-25] MEDS: DILTIAZEM HCL 180 MG CAPSULE.CR PO SCH ×2 (10:03→21:09)
[2019-09-25] MEDS: LOSARTAN POTASSIUM 50 MG TABLET PO SCH (10:03)
[2019-09-25] MEDS: FUROSEMIDE 20 MG TABLET PO SCH (10:03)
[2019-09-25] MEDS: FAMOTIDINE INJ/PF 20 MG/2 ML SDV IV SCH ×2 (10:03→21:09)
[2019-09-25] MEDS: APIXABAN 2.5 MG TABLET PO SCH ×2 (10:03→17:44)
[2019-09-25] MEDS: DOCUSATE SODIUM 100 MG CAPSULE PO SCH ×2 (10:03→17:44)
[2019-09-25] MEDS: NORMAL SALINE 1000 ML 1,000 ML IV PRN (10:05)
[2019-09-25] MEDS: MULTIVITAMIN TABLET PO SCH (10:16)
[2019-09-25] MEDS: ASCORBIC ACID 500 MG TABLET PO SCH (10:16)
--- NOTE | 2019-09-25 16:16 | PDOC PROGRESS REPORT ---
Subjective Progress Note for:: 09/25/19 Subjective:: No reported chest pain or difficulty with breathing. No reported fever or chills. No nausea, vomiting, or abdominal pain. Her oral intake is improving. Patient continue to participate in physical therapy. Reason For Visit: RT HIP FX Physical Exam Vital Signs: Temp Pulse Resp BP Pulse Ox 97.2 F 87 19 123/68 98 09/25/19 11:44 09/25/19 14:00 09/25/19 11:44 09/25/19 11:44 09/25/19 11:44 Intake & Output 09/24/19 09/25/19 09/26/19 06:59 06:59 06:59 Intake Total 811 1220 650 Balance 811 1220 650 Weight 75.9 kg 76 kg Physical Exam: General appearance: PRESENT: no acute distress Head exam: PRESENT: atraumatic, normocephalic Eye exam: PRESENT: conjunctiva pink. ABSENT: pallor, sclera icterus Mouth exam: PRESENT: moist Respiratory exam: PRESENT: clear to auscultation avi, decreased breath sounds - at lung bases Cardiovascular exam: PRESENT: irregular rhythm, +S1, +S2. ABSENT: diastolic murmur, rubs, systolic murmur GI/Abdominal exam: PRESENT: normal bowel sounds, soft. ABSENT: organomegaly, tenderness Extremities exam: PRESENT: pedal edema Musculoskeletal exam: PRESENT: deformity - related to multiple joints involvement with arthritis Neurological exam: PRESENT: alert, awake, appropriate and cooperative with examination Skin exam: PRESENT: dry, warm, other - right hip surgical site dressing is satisfactory. Results Laboratory Results: 09/25/19 05:46 09/25/19 05:46 09/24/19 09/25/19 09/25/19 18:40 05:46 05:46 WBC 11.5 H RBC 4.24 Hgb 10.2 L D Hct 32.3 L MCV 76 L MCH 24.2 L MCHC 31.8 L RDW 16.4 H Plt Count 148 L Seg Neutrophils % 77.2 Sodium 137.0 Potassium 4.6 Chloride 109 H Carbon Dioxide 24 Anion Gap 4 L BUN 25 H Creatinine 0.96 Est GFR ( Amer) > 60 Glucose 94 Calcium 8.7 Blood Type A POSITIVE Antibody Screen NEGATIVE 09/21/19 09/21/19 09/21/19 10:18 10:18 19:30 Creatine Kinase 62 61 CK-MB (CK-2) 1.86 Troponin I 0.020 NT-Pro-B Natriuret Pep 09/21/19 09/22/19 09/22/19 19:30 01:31 01:31 Creatine Kinase 69 CK-MB (CK-2) 1.83 1.58 Troponin I 0.024 0.025 NT-Pro-B Natriuret Pep 09/22/19 09/23/19 09/24/19 07:04 04:08 04:34 Creatine Kinase CK-MB (CK-2) Troponin I NT-Pro-B Natriuret Pep 466 H 1320 H 4540 H Impressions: Cervical Spine CT 09/21/19 10:21 IMPRESSION: 1. No acute fracture or dislocation of the cervical spine. 2. Mild degenerative disc disease and spondylosis. 3. Enlarged right thyroid lobe, unchanged from prior. Head CT 09/21/19 10:21 IMPRESSION: 1. No acute intracranial hemorrhage, mass, or evidence of acute territorial infarct. 2. Severe chronic small vessel ischemic change. EVIDENCE OF ACUTE STROKE: NO. Pelvis CT 09/21/19 10:21 IMPRESSION: Acute intertrochanteric fracture right femur. Mild displacement of the greater and lesser trochanters. Chest X-Ray 09/21/19 11:54 IMPRESSION: NO ACUTE RADIOGRAPHIC FINDING IN THE CHEST. Fluoroscopy 09/22/19 00:00 IMPRESSION: IMAGE(S) OBTAINED DURING PROCEDURE. Hip/Pelvis X-Ray 09/22/19 00:00 IMPRESSION: IMAGE(S) OBTAINED DURING PROCEDURE. Assessment & Plan - Diagnosis (1) Fall at home Qualifiers: Encounter type: initial encounter Qualified Code(s): W19.XXXA - Unspecified fall, initial encounter; Y92.009 - Unspecified place in unspecified non- institutional (private) residence as the place of occurrence of the external cause Is this a current diagnosis for this admission?: Yes (2) Intertrochanteric fracture Qualifiers: Encounter type: initial encounter Fracture type: closed Fracture alignment: displaced Laterality: right Qualified Code(s): S72.141A - Di splaced intertrochanteric fracture of right femur, initial encounter for closed fracture Is this a current diagnosis for this admission?: Yes (3) Chronic atrial fibrillation Is this a current diagnosis for this admission?: Yes (4) HTN (hypertension) Qualifiers: Hypertension type: essential hypertension Qualified Code(s): I10 - Essential (primary) hypertension Is this a current diagnosis for this admission?: Yes (5) GERD (gastroesophageal reflux disease) Qualifiers: Esophagitis presence: without esophagitis Qualified Code(s): K21.9 - Gastro-esophageal reflux disease without esophagitis Is this a current diagnosis for this admission?: Yes (6) Osteoarthritis involving multiple joints on both sides of body Is this a current diagnosis for this admission?: Yes (7) Postmenopausal osteoporosis Is this a current diagnosis for this admission?: Yes (8) Vitamin D deficiency Is this a current diagnosis for this admission?: Yes (9) SDAT (senile dementia of Alzheimer's type) Is this a current diagnosis for this admission?: Yes (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 Is this a current diagnosis for this admission?: Yes - Time Time Spent with patient: 25-34 minutes Level of Care: TELE Medications reviewed and adjusted accordingly: Yes Anticipated discharge: SNF Anticipated DC Timeframe: when bed available - Inpatient Certification Based on my medical assessment, after consideration of the patient's comorbidities, presenting symptoms, or acuity I expect that the services needed warrant INPATIENT care.: Yes I certify that my determination is in accordance with my understanding of Medicare's requirements for reasonable and necessary INPATIENT services [42 CFR 412.3e].: Yes Medical Necessity: Significant Comorbidiites Make Outpatient Treatment Too Risky, Need Close Monitoring Due to Risk of Patient Decompensation, Need For IV Fluids, Need For Continuous Telemetry Monitoring, Risk of Complication if Not Cared For in Hospital, Risk of Diagnosis Which Will Require Inpatient Bailee l/Care/Monitoring Post Hospital Care: D/C or Transfer Summary - Plan Summary Plan Summary: Continue current medication and rehabilitative therapy. Daughter is agreeable to SNF short term rehabilitation at this time.
[2019-09-26] MEDS: ACETAMINOPHEN 325 MG TABLET PO PRN ×3 (06:16→22:34)
[2019-09-26] MEDS: NORMAL SALINE 1000 ML 1,000 ML IV PRN (06:19)
--- NOTE | 2019-09-26 07:35 | PDOC PROGRESS REPORT ---
Subjective Progress Note for:: 09/26/19 Subjective:: No reported chest pain or difficulty with breathing. No reported fever or chills. No nausea, vomiting, or abdominal pain. Awaiting SNF placement for short term rehabilitation. Reason For Visit: RT HIP FX Physical Exam Vital Signs: Temp Pulse Resp BP Pulse Ox 97.9 F 89 17 127/65 H 100 09/25/19 23:20 09/26/19 02:00 09/25/19 23:20 09/25/19 23:20 09/25/19 23:20 Intake & Output 09/25/19 09/26/19 09/27/19 06:59 06:59 06:59 Intake Total 1220 1999 Balance 1220 1999 Weight 76 kg 76 kg Physical Exam: General appearance: PRESENT: no acute distress Head exam: PRESENT: atraumatic, normocephalic Eye exam: PRESENT: conjunctiva pink. ABSENT: pallor, sclera icterus Mouth exam: PRESENT: moist Respiratory exam: PRESENT: clear to auscultation avi, decreased breath sounds - at lung bases Cardiovascular exam: PRESENT: irregular rhythm, +S1, +S2. ABSENT: diastolic murmur, rubs, systolic murmur GI/Abdominal exam: PRESENT: normal bowel sounds, soft. ABSENT: organomegaly, tenderness Extremities exam: PRESENT: pedal edema Musculoskeletal exam: PRESENT: deformity - related to multiple joints involvement with arthritis Neurological exam: PRESENT: alert, awake, appropriate and cooperative with examination Skin exam: PRESENT: dry, warm, other - right hip surgical site dressing is satisfactory. Results Laboratory Results: 09/25/19 05:46 09/25/19 05:46 09/25/19 05:46 WBC 11.5 H RBC 4.24 Hgb 10.2 L D Hct 32.3 L MCV 76 L MCH 24.2 L MCHC 31.8 L RDW 16.4 H Plt Count 148 L Seg Neutrophils % 77.2 09/21/19 09/21/19 09/21/19 10:18 10:18 19:30 Creatine Kinase 62 61 CK-MB (CK-2) 1.86 Troponin I 0.020 NT-Pro-B Natriuret Pep 09/21/19 09/22/19 09/22/19 19:30 01:31 01:31 Creatine Kinase 69 CK-MB (CK-2) 1.83 1.58 Troponin I 0.024 0.025 NT-Pro-B Natriuret Pep 09/22/19 09/23/19 09/24/19 07:04 04:08 04:34 Creatine Kinase CK-MB (CK-2) Troponin I NT-Pro-B Natriuret Pep 466 H 1320 H 4540 H Impressions: Cervical Spine CT 09/21/19 10:21 IMPRESSION: 1. No acute fracture or dislocation of the cervical spine. 2. Mild degenerative disc disease and spondylosis. 3. Enlarged right thyroid lobe, unchanged from prior. Head CT 09/21/19 10:21 IMPRESSION: 1. No acute intracranial hemorrhage, mass, or evidence of acute territorial infarct. 2. Severe chronic small vessel ischemic change. EVIDENCE OF ACUTE STROKE: NO. Pelvis CT 09/21/19 10:21 IMPRESSION: Acute intertrochanteric fracture right femur. Mild displacement of the greater and lesser trochanters. Chest X-Ray 09/21/19 11:54 IMPRESSION: NO ACUTE RADIOGRAPHIC FINDING IN THE CHEST. Fluoroscopy 09/22/19 00:00 IMPRESSION: IMAGE(S) OBTAINED DURING PROCEDURE. Hip/Pelvis X-Ray 09/22/19 00:00 IMPRESSION: IMAGE(S) OBTAINED DURING PROCEDURE. Assessment & Plan - Diagnosis (1) Fall at home Qualifiers: Encounter type: initial encounter Qualified Code(s): W19.XXXA - Unspecified fall, initial encounter; Y92.009 - Unspecified place in unspecified non- institutional (private) residence as the place of occurrence of the external cause Is this a current diagnosis for this admission?: Yes (2) Intertrochanteric fracture Qualifiers: Encounter type: initial encounter Fracture type: closed Fracture alignment: displaced Laterality: right Qualified Code(s): S72.141A - Displaced intertrochanteric fracture of right femur, initial encounter for closed fracture Is this a current diagnosis for this admission?: Yes (3) Chronic atrial fibrillation Is this a current diagnosis for this admission?: Yes (4) HTN (hypertension) Qualifiers: Hypertension type: essential hypertension Qualified Code(s): I10 - Essential (primary) hypertension Is this a current diagnosis for this admission?: Yes (5) GERD (gastroesophageal reflux disease) Qualifiers: Esophagitis presence: without esophagitis Qualified Code(s): K21.9 - Gastro-esophageal reflux disease without esophagitis Is this a current diagnosis for this admission?: Yes (6) Osteoarthritis involving multiple joints on both sides of body Is this a current diagnosis for this admission?: Yes (7) Postmenopausal osteoporosis Is this a current diagnosis for this admission?: Yes (8) Vitamin D deficiency Is this a current diagnosis for this admission?: Yes (9) SDAT (senile dementia of Alzheimer's type) Is this a current diagnosis for this admission?: Yes (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 Is this a current diagnosis for this admission?: Yes - Time Time Spent with patient: 25-34 minutes Level of Care: TELE Medications reviewed and adjusted accordingly: Yes Anticipated discharge: SNF Anticipated DC Timeframe: when bed available - Inpatient Certification Based on my medical assessment, after consideration of the patient's comorbidities, presenting symptoms, or acuity I expect that the services needed warrant INPATIENT care.: Yes I certify that my determination is in accordance with my understanding of Medicare's requirements for reasonable and necessary INPATIENT services [42 CFR 412.3e].: Yes Medical Necessity: Significant Comorbidiites Make Outpatient Treatment Too Risky, Need Close Monitoring Due to Risk of Patient Decompensation, Need For IV Fluids, Need For Continuous Telemetry Monitoring, Risk of Complication if Not Cared For in Hospital, Risk of Diagnosis Which Will Require Inpatient Eval/Care/Monitoring Post Hospital Care: D/C or Transfer Summary - Plan Summary Plan Summary: Continue current medication management. Follow up with digital media planner regarding SNF transfer.
[2019-09-26] MEDS: DILTIAZEM HCL 180 MG CAPSULE.CR PO SCH ×2 (10:16→21:38)
[2019-09-26] MEDS: FUROSEMIDE 20 MG TABLET PO SCH (10:16)
[2019-09-26] MEDS: APIXABAN 2.5 MG TABLET PO SCH ×2 (10:17→17:03)
[2019-09-26] MEDS: LOSARTAN POTASSIUM 50 MG TABLET PO SCH (10:17)
[2019-09-26] MEDS: DOCUSATE SODIUM 100 MG CAPSULE PO SCH ×2 (10:17→17:03)
[2019-09-26] MEDS: MULTIVITAMIN TABLET PO SCH (10:17)
[2019-09-26] MEDS: ASCORBIC ACID 500 MG TABLET PO SCH (10:17)
[2019-09-26] MEDS: FAMOTIDINE INJ/PF 20 MG/2 ML SDV IV SCH (10:17)
[2019-09-26] MEDS: FAMOTIDINE 20 MG TABLET PO SCH (21:38)
[2019-09-27] MEDS: DILTIAZEM HCL 180 MG CAPSULE.CR PO SCH (10:35)
[2019-09-27] MEDS: MULTIVITAMIN TABLET PO SCH (10:36)
[2019-09-27] MEDS: APIXABAN 2.5 MG TABLET PO SCH (10:36)
[2019-09-27] MEDS: ASCORBIC ACID 500 MG TABLET PO SCH (10:36)
[2019-09-27] MEDS: ACETAMINOPHEN 325 MG TABLET PO PRN (10:36)
[2019-09-27] MEDS: DOCUSATE SODIUM 100 MG CAPSULE PO SCH (10:36)
[2019-09-27] MEDS: LOSARTAN POTASSIUM 50 MG TABLET PO SCH (10:36)
[2019-09-27] MEDS: FAMOTIDINE 20 MG TABLET PO SCH (10:36)
[2019-09-27] MEDS: FUROSEMIDE 20 MG TABLET PO SCH (10:37)
[2019-09-27 13:11] VITALS: BP 141/77
--- NOTE | 2019-09-27 14:19 | PDOC TRANSFER SUMMARY ---
Impression - Admit/DC Date/PCP Admission Date/Primary Care Provider: 09/21/19 12:29 PILO BLACK Discharge Date: 09/27/19 - Discharge Diagnosis (1) Fall at home Is this a current diagnosis for this admission?: Yes (2) Intertrochanteric fracture Is this a current diagnosis for this admission?: Yes (3) Chronic atrial fibrillation Is this a current diagnosis for this admission?: Yes (4) HTN (hypertension) Is this a current diagnosis for this admission?: Yes (5) GERD (gastroesophageal reflux disease) Is this a current diagnosis for this admission?: Yes (6) Osteoarthritis involving multiple joints on both sides of body Is this a current diagnosis for this admission?: Yes (7) Postmenopausal osteoporosis Is this a current diagnosis for this admission?: Yes (8) Vitamin D deficiency Is this a current diagnosis for this admission?: Yes (9) SDAT (senile dementia of Alzheimer's type) Is this a current diagnosis for this admission?: Yes (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 her ED evaluation revealed right hip fracture. She was taken to the operating suite on 09/22/2019 for ORIF. Post operatively, she was transfused 2 units of PRBC during this hospitalization due to anaemia of multifactorial reasons. She participated in physical therapy session. She will be transferred to [facility] for short term rehabilitation. She will benefit from home health agency service including visiting nurse, physical therapy and personal aide services upon discharge from the SNF. She will follow up with orthopedic surgeon and myself as instructed upon discharge. - Additional Information Resuscitation Status: Full Code Discharge Diet: As Tolerated, Cardiac Discharge Activity: Activity As Tolerated, Slowly Increase Activity, Supervised Activity Referrals: [facility] [Outside] PRECIOUS WATTERS MD [ACTIVE STAFF] - 10/15/19 11:30 am PILO BLACK MD [Primary Care Provider] - (call office at [phone] for appointment before discharge from SNF.) Prescriptions: Oxycodone HCl/Acetaminophen [Percocet 5-325 mg Tablet] 1 tab PO Q6HP PRN #10 tablet PRN Reason: Home Medications: Omeprazole 20 mg PO DAILY 03/22/13 Multivitamin [Tab-A-Josephine (Multiple Vitamin) Tablet] 1 tab PO DAILY 04/20/18 Apixaban [Eliquis 2.5 mg Tablet] 2.5 mg PO BID #60 tablet 04/24/18 Ascorbic Acid [Vitamin C 500 mg Tablet] 500 mg PO DAILY 09/21/19 Diltiazem HCl [Cardizem Cd 180 mg Capsule] 180 mg PO BID 09/21/19 Ferrous Sulfate [Feosol 325 mg Tablet] 325 mg PO DAILY 09/21/19 Furosemide [Lasix 20 mg Tablet] 20 mg PO DAILY 09/21/19 Losartan Potassium [Cozaar 50 mg Tablet] 50 mg PO DAILY 09/21/19 Megestrol Acetate [Megace 20 mg Tablet] 40 mg PO DAILY 09/21/19 Oxycodone HCl/Acetaminophen [Percocet 5-325 mg Tablet] 1 tab PO Q6HP PRN #10 tablet 09/27/19 History of Present Illiness History of Present Illness: RICHARD VEGA is a 84 year old female This is a 84-year-old female of Dr. Black with a history of the dementia atrial fibrillation on Eliquis hypertension hypothyroidism and vitamin D deficiency she chronically slow mental state per family who presented to the ER via EMS after a chief complaint of the fall. EMS reports the family states that she falls all the times. Today's been EMS called because she fall which between 2 objects in the home and the family could not get to her or help her up EMS was able to extract her. They report this he was ambulatory on the skin and complains of right thigh pain Patient and family do not report hitting her head or any loss of consciousness Patient initial work-up in the emergency departments suggest a right hip fracture and also call the orthopedic and suggest to admit in a cardiac and medical clearance When I saw the patient on the floor patient is alert awake but underlying dementia is Hospital Course Hospital Course: Patient was admitted following presentation to the ED follow a fall at home with right hip pain and difficulty with ambulation. her ED evaluation revealed right hip fracture. She was taken to the operating suite on 09/22/2019 for ORIF. Post operatively, she was transfused 2 units of PRBC during this hospitalization due to anaemia of multifactorial reasons. She participated in physical therapy session. She will be transferred to [facility] for short term rehabilitation. She will benefit from home health agency service including visiting nurse, physical therapy and personal aide services upon discharge from the SNF. She will follow up with orthopedic surgeon and myself as instructed upon discharge. Physical Exam Vital Signs: Temp Pulse Resp BP Pulse Ox 98.3 F 90 19 141/77 H 100 09/27/19 12:23 09/27/19 12:23 09/27/19 12:23 09/27/19 12:23 09/27/19 12:23 Intake & Output 09/26/19 09/27/19 09/28/19 06:59 06:59 06:59 Intake Total 1999 598 1480 Balance 1999 598 1480 Weight 76 kg 75.2 kg 75.2 kg General appearance: PRESENT: no acute distress, out of bed in chair. Head exam: PRESENT: atraumatic, normocephalic Eye exam: PRESENT: conjunctiva pink. ABSENT: pallor, sclera icterus Mouth exam: PRESENT: moist Respiratory exam: PRESENT: clear to auscultation bilaterally Cardiovascular exam: PRESENT: irregular rhythm, +S1, +S2. ABSENT: diastolic murmur, rubs, systolic murmur GI/Abdominal exam: PRESENT: normal bowel sounds, soft. ABSENT: organomegaly, tenderness Extremities exam: PRESENT: pedal edema Musculoskeletal exam: PRESENT: deformity - related to multiple joints involvement with arthritis Neurological exam: PRESENT: alert, awake, appropriate and cooperative with examination Skin exam: PRESENT: dry, warm, other - right hip surgical site dressing is satisfactory. Results Laboratory Results: WBC 11.5 10^3/uL (4.0-10.5) H 09/25/19 05:46 RBC 4.24 10^6/uL (3.72-5.28) 09/25/19 05:46 Hgb 10.2 g/dL (12.0-15.5) L D 09/25/19 05:46 Hct 32.3 % (36.0-47.0) L 09/25/19 05:46 MCV 76 fl (80-97) L 09/25/19 05:46 MCH 24.2 pg (27.0-33.4) L 09/25/19 05:46 MCHC 31.8 g/dL (32.0-36.0) L 09/25/19 05:46 RDW 16.4 % (11.5-14.0) H 09/25/19 05:46 Plt Count 148 10^3/uL (150-450) L 09/25/19 05:46 Lymph % (Auto) 11.1 % (13-45) L 09/25/19 05:46 Atkinson % (Auto) 11.0 % (3-13) 09/25/19 05:46 Eos % (Auto) 0.4 % (0-6) 09/25/19 05:46 Baso % (Auto) 0.3 % (0-2) 09/25/19 05:46 Absolute Neuts (auto) 8.9 10^3/uL (1.7-8.2) H 09/25/19 05:46 Absolute Lymphs (auto) 1.3 10^3/uL (0.5-4.7) 09/25/19 05:46 Absolute Monos (auto) 1.3 10^3/uL (0.1-1.4) 09/25/19 05:46 Absolute Eos (auto) 0.0 10^3/uL (0.0-0.6) 09/25/19 05:46 Absolute Basos (auto) 0.0 10^3/uL (0.0-0.2) 09/25/19 05:46 Seg Neutrophils % 77.2 % (42-78) 09/25/19 05:46 PT 14.8 SEC (11.4-15.4) 09/21/19 10:18 INR 1.14 09/21/19 10:18 APTT 26.4 SEC (23.5-35.8) 09/21/19 10:18 Sodium 137.0 mmol/L (137-145) 09/25/19 05:46 Potassium 4.6 mmol/L (3.6-5.0) 09/25/19 05:46 Chloride 109 mmol/L (98-107) H 09/25/19 05:46 Carbon Dioxide 24 mmol/L (22-30) 09/25/19 05:46 Anion Gap 4 (5-19) L 09/25/19 05:46 BUN 25 mg/dL (7-20) H 09/25/19 05:46 Creatinine 0.96 mg/dL (0.52-1.25) 09/25/19 05:46 Est GFR ( Amer) > 60 (>60) 09/25/19 05:46 Est GFR (Non-Af Amer) Cancelled 09/21/19 10:18 Est GFR (MDRD) Non-Af 55 (>60) L 09/25/19 05:46 Glucose 94 mg/dL (75-110) 09/25/19 05:46 Calcium 8.7 mg/dL (8.4-10.2) 09/25/19 05:46 Phosphorus 3.1 mg/dL (2.5-4.5) 09/23/19 04:08 Magnesium 2.3 mg/dL (1.6-2.3) 09/24/19 04:34 Creatine Kinase 69 U/L (30-135) 09/22/19 01:31 CK-MB (CK-2) 1.58 ng/mL (<4.55) 09/22/19 01:31 Troponin I 0.025 ng/mL 09/22/19 01:31 NT-Pro-B Natriuret Pep 4540 pg/mL (<450) H 09/24/19 04:34 EGFR Cancelled 09/21/19 10:18 Vitamin D 25-Hydroxy 38.4 ng/mL (14.7-68.3) 09/23/19 04:08 TSH 2.62 uIU/mL (0.47-4.68) 09/21/19 10:18 PTH Intact 135.1 pg/mL (10.0-65.0) H 09/23/19 13:15 SARS-CoV-2 (PCR) NEGATIVE (NEGATIVE) 09/21/19 12:30 Blood Type A POSITIVE 09/24/19 18:40 Antibody Screen NEGATIVE 09/24/19 18:40 Crossmatch See Detail 09/24/19 18:40 09/21/19 09/21/19 09/22/19 10:18 19:30 01:31 CK-MB (CK-2) 1.86 1.83 1.58 Troponin I 0.020 0.024 0.025 NT-Pro-B Natriuret Pep 09/22/19 09/23/19 09/24/19 07:04 04:08 04:34 CK-MB (CK-2) Troponin I NT-Pro-B Natriuret Pep 466 H 1320 H 4540 H Impressions: Cervical Spine CT 09/21/19 10:21 IMPRESSION: 1. No acute fracture or dislocation of the cervical spine. 2. Mild degenerative disc disease and spondylosis. 3. Enlarged right thyroid lobe, unchanged from prior. Head CT 09/21/19 10:21 IMPRESSION: 1. No acute intracranial hemorrhage, mass, or evidence of acute territorial infa rct. 2. Severe chronic small vessel ischemic change. EVIDENCE OF ACUTE STROKE: NO. Pelvis CT 09/21/19 10:21 IMPRESSION: Acute intertrochanteric fracture right femur. Mild displacement of the greater and lesser trochanters. Hip/Pelvis X-Ray 09/21/19 11:50 IMPRESSION: Intertrochanteric fracture right femoral neck. Chest X-Ray 09/21/19 11:54 IMPRESSION: NO ACUTE RADIOGRAPHIC FINDING IN THE CHEST. Fluoroscopy 09/22/19 00:00 IMPRESSION: IMAGE(S) OBTAINED DURING PROCEDURE. Hip/Pelvis X-Ray 09/22/19 00:00 IMPRESSION: IMAGE(S) OBTAINED DURING PROCEDURE. Plan Health Concerns: High risk for readmission due to her morbidities. Plan of Treatment: Short term rehabilitation. Goals: Short term rehabilitation at SNF. Medication management and close follow up. Time Spent: Greater than 30 Minutes Stroke Is this a Stroke Patient?: No Acute Heart Failure - Is this a Heart Failure Patient?: No
== END 2019-09-27 15:53 | DRG 481 ==
LOC: ER 10:11 → EH 12:29 → 4N 14:51
PROVIDERS: ADMIT Internal Medicine Geriatric Medicine; ATTEND Internal Medicine Geriatric Medicine
PROC: 0QS606Z Reposition Right Upper Femur with Intramedullary Internal Fixation Device, Open Approach (ICD-10-PCS; principal; 2019-09-22 08:00)
PROC: 30233N1 Transfusion of Nonautologous Red Blood Cells into Peripheral Vein, Percutaneous Approach (ICD-10-PCS; 2019-09-24)
DX: S72.141A Displaced intertrochanteric fracture of right femur, initial encounter for closed fracture (principal); I48.20 Chronic atrial fibrillation, unspecified; D64.89 Other specified anemias; G30.1 Alzheimer's disease with late onset; F02.80 Dementia in other diseases classified elsewhere, unspecified severity, without behavioral disturbance, psychotic disturbance, mood disturbance, and anxiety; I10 Essential (primary) hypertension; E05.80 Other thyrotoxicosis without thyrotoxic crisis or storm; E55.9 Vitamin D deficiency, unspecified; K21.9 Gastro-esophageal reflux disease without esophagitis; M19.90 Unspecified osteoarthritis, unspecified site; M81.0 Age-related osteoporosis without current pathological fracture; Z91.81 History of falling; Z79.01 Long term (current) use of anticoagulants; W18.30XA Fall on same level, unspecified, initial encounter; Y92.002 Bathroom of unspecified non-institutional (private) residence as the place of occurrence of the external cause; Z03.818 Encounter for observation for suspected exposure to other biological agents ruled out
CPT/HCPCS: 01230; 36415; 36430; 70450; 71045; 72125; 72192; 80048; 82306; 82550; 82553; 83735; 83880; 83970; 84100; 84443; 84484; 85025; 85610; 85730; 86850; 86900; 86901; 86920; 87040; 87635; 93005; 93010; 93306; 96374; 96375; 99140; 99285; C1713; C1769; C9803; J0690; J1940; J2250; J2270; J2405; J2704; J2710; J3010; J3490; J7030; P9016; S0028

== ENCOUNTER 2019-11-19 11:02 | Emergency (ER) | payer MEDICARE, MEDICAID ==
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
[2019-11-19 13:40] LABS: ABSOLUTE EOSINOPHILS # (AUTO) 0.1 10^3/uL (0.0-0.6); ABSOLUTE LYMPHOCYTES (AUTO) 2.4 10^3/uL (0.5-4.7); ABSOLUTE MONOCYTES (AUTO) 0.4 10^3/uL (0.1-1.4); ABSOLUTE NEUT (AUTO) 6.4 10^3/uL (1.7-8.2); BASOPHILS % (AUTO) 0.3 % (0-2); EOSINOPHILS % (AUTO) 0.6 % (0-6); HEMATOCRIT 38.7 % (36.0-47.0); HEMOGLOBIN 12.2 g/dL (12.0-15.5); LYMPHOCYTES % (AUTO) 25.7 % (13-45); MEAN CORPUSCULAR HGB CONC 31.5 g/dL (32.0-36.0); MEAN CORPUSCULAR VOLUME 76 fl (80-97); MONOCYTES % (AUTO) 4.5 % (3-13); PLATELET COUNT 284 10^3/uL (150-450); RED BLOOD COUNT 5.08 10^6/uL (3.72-5.28); RED CELL DISTRIBUTION WIDTH 15.5 % (11.5-14.0); SEGMENTED NEUTROPHILS % (AUTO) 68.9 % (42-78); TOTAL CELLS COUNTED % (AUTO) 100 %; WHITE BLOOD COUNT 9.4 10^3/uL (4.0-10.5)
[2019-11-19 13:42] LABS: INTERNATIONAL RATION (INR) 1.14
[2019-11-19 13:43] LABS: PARTIAL THROMBOPLASTIN TIME 31.5 SEC (23.5-35.8)
--- NOTE | 2019-11-19 13:46 | RADIOLOGY REPORT (SQ) ---
EXAM DESCRIPTION: KNEE RIGHT 3 VIEWS IMAGES COMPLETED DATE/TIME: 11/19/2019 1:29 pm REASON FOR STUDY: pain swelling COMPARISON: 07/08/2009 NUMBER OF VIEWS: Three views. TECHNIQUE: AP, lateral, and single oblique radiographic images acquired of the right knee. LIMITATIONS: None. FINDINGS: MINERALIZATION: Normal. BONES: No acute fracture or dislocation. No worrisome bone lesions. JOINT: No effusion. Mild loss of medial and lateral compartment joint space. SOFT TISSUES: No soft tissue swelling. No radio-opaque foreign body. OTHER: No other significant finding. IMPRESSION: No evidence of acute osseous injury. Background of mild degenerative changes. TECHNICAL DOCUMENTATION: JOB ID: [id number] 2010 [employer]- All Rights Reserved Reading location - IP/workstation name: [email or web address]
[2019-11-19 13:48] LABS: PROTHROMBIN TIME 14.8 SEC (11.4-15.4)
[2019-11-19 13:57] LABS: ALBUMIN 3.9 g/dL (3.5-5.0); ALKALINE PHOSPHATASE 145 U/L (38-126); ANION GAP 11 (5-19); ASPARTATE AMINO TRANSFERASE 33 U/L (14-36); BILIRUBIN,DIRECT 0.4 mg/dL (0.0-0.4); BILIRUBIN,TOTAL 0.6 mg/dL (0.2-1.3); BLOOD UREA NITROGEN 13 mg/dL (7-20); CALCIUM 10.4 mg/dL (8.4-10.2); CARBON DIOXIDE 23 mmol/L (22-30); CHLORIDE 108 mmol/L (98-107); GLUCOSE 118 mg/dL (75-110); POTASSIUM 3.8 mmol/L (3.6-5.0); TOTAL PROTEIN 7.9 g/dL (6.3-8.2)
--- NOTE | 2019-11-19 15:23 | ER Document Report ---
ED General - General Chief Complaint: Leg Swelling Stated Complaint: LEG PAIN Time Seen by Provider: 11/19/19 12:23 Primary Care Provider: PILO BLACK MD [Primary Care Provider] - Follow up as needed Mode of Arrival: Wheelchair TRAVEL OUTSIDE OF THE [place] IN LAST 30 DAYS: No - HPI Notes: Chief complaint: Intermittent pain and swelling right knee History of present illness: 84-year-old female followed by Dr. Black with history of moderate dementia, generalized osteoarthritis and previous repair of right hip fracture in September year now returns to the emergency department by her daughter who is her principal sorting supervisor valuation of intermittent pain and swelling of right knee. No trauma. Patient lives at home with daughter and is nonambulatory as per baseline. Patient has no breast complaints otherwise at this time. Taking tramadol 1 tablet a day for pain. - Related Data Allergies/Adverse Reactions: lisinopril Adverse Reaction (Mild, Verified 11/19/19 14:09) cough Past Medical History - General Information source: Relative, [facility] Records - Social History Smoking Status: Never Smoker Frequency of alcohol use: None Drug Abuse: None Family History: Reviewed & Not Pertinent - Past Medical History Cardiac Medical History: Reports: Hx Congestive Heart Failure, Hx Hypertension - medicated Denies: Hx Atrial Fibrillation, Hx Coronary Artery Disease, Hx Heart Attack, Hx Hypercholesterolemia, Hx Peripheral Vascular Disease, Hx Heart Murmur Pulmonary Medical History: Denies: Hx Asthma, Hx Bronchitis, Hx COPD, Hx Pneumonia, Hx Tuberculosis Neurological Medical History: Denies: Hx Cerebrovascular Accident, Hx Seizures, Hx Parkinson's Disease Renal/ Medical History: Denies: Hx Peritoneal Dialysis GI Medical History: Denies: Hx Hepatitis, Hx Hiatal Hernia, Hx Ulcer Musculoskeletal Medical History: Reports Hx Arthritis, Denies Hx Multiple Sclerosis Psychiatric Medical History: Reports: Hx Dementia Denies: Hx Depression Infectious Medical History: Denies: Hx Hepatitis Past Surgical History: Reports: Hx Tubal Ligation. Denies: Hx Appendectomy, Hx Bowel Surgery, Hx Section, Hx Cholecystectomy, Hx Coronary Artery Bypass Graft, Hx Gastric Bypass Surgery, Hx Herniorrhaphy, Hx Hysterectomy, Hx Mastectomy, Hx Open Heart Surgery, Hx Pacemaker, Hx Tonsillectomy - Immunizations Hx Pneumococcal Vaccination: 03/28/13 Review of Systems - Review of Systems -: Yes ROS unobtainable due to patient's medical condition Physical Exam - Vital signs Vitals: Temp Pulse Resp BP Pulse Ox 98.5 F 82 16 146/58 H 100 11/19/19 11:09 11/19/19 11:09 11/19/19 11:09 11/19/19 11:09 11/19/19 11:09 - Notes Notes: GENERAL: Elderly female quietly lying in bed appearing in no acute distress. SKIN: Good turgor no rashes. HEAD: Normocephalic atraumatic. EYES: PROMINENT BILATERAL ARCUS SENILIS. PERRLA. EOMI. Conjunctivae and sclerae clear. EARS: CANALS AND TMS CLEAR. NOSE: CLEAR. MOUTH: Moist mucosa. Good dentition. No stridor or edema. No drooling. NECK: Supple. No masses or thyromegaly. No adenopathy. Carotids 2+ without bruits. No JVD. BACK: Symmetrical without tenderness. CHEST: Respirations unlabored. Breath sounds clear and symmetrical. HEART: Regular rhythm. No murmur gallop or rub. ABDOMEN: Soft nontender without masses, organomegaly or rebound. Bowel sounds normally active. No bruits. GENITALIA: Deferred. EXTREMITIES: Mild soft tissue swelling right knee without tenderness or gross effusion. Good range of motion of knee with mild crepitus present. 1+ pretibial edema on the right side. No calf tenderness. Cap refill less than 1 .5 seconds. Dorsalis pedis and posterior tibial pulses 3+ and symmetrical. NEUROLOGICAL: GCS 14. Alert and oriented to person and place but not date as per baseline. Fluent speech. Cranial nerves II through XII intact. Sensorimotor and cerebellar normal. Normal tone. PSYCHIATRIC: Flat affect. Course - Re-evaluation Re-evalutation: 11/19/19 16:59 No findings of DVT on ultrasound. Labs are unremarkable. No fever. X-ray and physical exam consistent with osteoarthritis of right knee. This lady's advanced age I do not think she is a good candidate for nonsteroidal anti- inflammatory agents. I am advising daughter she can give the tramadol more than once a day as necessary and use ice packs as needed. Follow-up with PMD. Findings, clinical impression and plan of treatment have been discussed with patient/family. Understanding of current findings and recommendations has been acknowledged by them and there is agreement regarding disposition and follow-up. - Vital Signs Vital signs: Temp Pulse Resp BP Pulse Ox 98.5 F 82 16 146/58 H 100 11/19/19 12:26 11/19/19 11:09 11/19/19 11:09 11/19/19 11:09 11/19/19 11:09 - Laboratory Result Diagrams: 11/19/19 13:17 11/19/19 13:17 Laboratory results interpreted by me: 11/19/19 11/19/19 11/19/19 13:17 13:17 15:50 MCV 76 L MCH 24.0 L MCHC 31.5 L RDW 15.5 H Chloride 108 H Glucose 118 H Calcium 10.4 H Alkaline Phosphatase 145 H Urine Protein 30 H Urine Urobilinogen 2.0 H Urine Ascorbic Acid 40 H - Diagnostic Test Radiology reviewed: Reports reviewed - Per radiologist: Doppler ultrasound right lower extremity negative for DVT. Mild to moderate degenerative changes of right knee on plain films. Discharge - Discharge Clinical Impression: Osteoarthritis of right knee Qualifiers: Osteoarthritis type: unspecified Qualified Code(s): M17.11 - Unilateral primary osteoarthritis, right knee Condition: Stable Disposition: HOME, SELF-CARE Additional Instructions: Use tramadol and ice packs as needed. Follow-up with your primary care physician within the next 2 weeks. Referrals: PILO BLACK MD [Primary Care Provider] - Follow up as needed
[2019-11-19 16:39] LABS: APPEARANCE,URINE SLIGHTLY-CLOUDY; BILIRUBIN,URINE NEGATIVE (NEGATIVE); COLOR,URINE YELLOW; GLUCOSE, URINE NEGATIVE (NEGATIVE); KETONES,URINE NEGATIVE (NEGATIVE); LEUKOCYTE ESTERASE,URINE NEGATIVE (NEGATIVE); NITRITE,URINE NEGATIVE (NEGATIVE); PROTEIN,URINE 30 mg/dL (NEGATIVE); URINE SPECIFIC GRAVITY 1.018
--- NOTE | 2019-11-19 16:49 | RADIOLOGY REPORT (SQ) ---
EXAM DESCRIPTION: VENOUS UNILATERAL LOWER IMAGES COMPLETED DATE/TIME: 11/19/2019 4:39 pm REASON FOR STUDY: right lower leg swelling COMPARISON: 07/02/2019 TECHNIQUE: Dynamic and static wyatt scale and color images acquired of the right leg venous system. S elected spectral images acquired with additional compression and augmentation maneuvers. The contrala teral common femoral vein and saphenofemoral junction were also imaged. Images stored on PACS. LIMITATIONS: None. FINDINGS: COMMON FEMORAL: Normal phasicity, compression and augmentation. No visualized echogenic ma terial on wyatt scale. No defects on color images. FEMORAL: Normal compression and augmentation. No visualized echogenic material on wyatt scale. No defe cts on color images. POPLITEAL: Normal compression, augmentation. No visualized echogenic material on wyatt scale. No defec ts on color images. CALF VESSELS: Normal compression, augmentation. No visualized echogenic material on wyatt scale. No de fects on color images. GSV and SSV: Normal compression, augmentation. No visualized echogenic material on wyatt scale. No def ects on color images. ANY DEEP VENOUS INSUFFICIENCY: Not evaluated. ANY EVIDENCE OF POPLITEAL CYST: No. OTHER: No other significant finding. CONTRALATERAL COMMON FEMORAL VEIN AND SAPHENOFEMORAL JUNCTION: Normal phasicity, compression and augmentation. No visualized echogenic material on wyatt scale. No de fects on color images. IMPRESSION: NO EVIDENCE OF DVT OR SVT IN THE RIGHT LEG. TECHNICAL DOCUMENTATION: JOB ID: [id number] 2010 [employer]- All Rights Reserved Reading location - IP/workstation name: [email or web address]
[2019-11-19 17:29] VITALS: BP 162/79
== END 2019-11-19 17:40 | disposition home or self-care (01) ==
LOC: ER 11:02
DX: M17.11 Unilateral primary osteoarthritis, right knee (principal); M79.89 Other specified soft tissue disorders; M25.561 Pain in right knee; F03.90 Unspecified dementia, unspecified severity, without behavioral disturbance, psychotic disturbance, mood disturbance, and anxiety; Z96.641 Presence of right artificial hip joint; I11.0 Hypertensive heart disease with heart failure; I50.9 Heart failure, unspecified; Z88.8 Allergy status to other drugs, medicaments and biological substances; Z79.899 Other long term (current) drug therapy
CPT/HCPCS: 36415; 80053; 81001; 83690; 85025; 85610; 85730; 93971; 99285

== ENCOUNTER 2019-12-03 18:51 | Emergency (ER) | payer MEDICARE, MEDICAID ==
--- NOTE | 2019-12-03 19:21 | ER Document Report ---
ED Medical Screen (RME) - General Chief Complaint: Blood in Catheter Stated Complaint: BLOOD IN URINE Time Seen by Provider: 12/03/19 19:06 Primary Care Provider: PILO BLACK MD [Primary Care Provider] - Follow up as needed TRAVEL OUTSIDE OF THE [place] IN LAST 30 DAYS: No - HPI Notes: 12/03/19 19:16 84 year old female to the ED with C/O blood in her urine for the past two weeks. Her caregiver states that the bleeding has gotten worse. States that one day last week that she had some nausea and lost of appetite. Caregiver denies fevers, chills. Denies change from baseline confusion. patient is on Eliquis. I performed a brief medical screening exam on the patient determined that the patient needs further evaluation and management by main side provider. I have placed initial orders to help expedite care. - Related Data Allergies/Adverse Reactions: lisinopril Adverse Reaction (Mild, Verified 12/03/19 19:06) cough Home Medications: LASIX. LOSARTAN. CARDIZEM. MULTIVITAMIN. MEGACE. TRAMADOL. IRON Past Medical History - Social History Chew tobacco use (# tins/day): No Frequency of alcohol use: None Drug Abuse: None - Past Medical History Cardiac Medical History: Reports: Hx Congestive Heart Failure, Hx Hypertension - medicated Denies: Hx Atrial Fibrillation, Hx Coronary Artery Disease, Hx Heart Attack, Hx Hypercholesterolemia, Hx Peripheral Vascular Disease, Hx Heart Murmur Pulmonary Medical History: Denies: Hx Asthma, Hx Bronchitis, Hx COPD, Hx Pneumonia, Hx Tuberculosis Neurological Medical History: Denies: Hx Cerebrovascular Accident, Hx Seizures, Hx Parkinson's Disease Renal/ Medical History: Denies: Hx Peritoneal Dialysis GI Medical History: Denies: Hx Hepatitis, Hx Hiatal Hernia, Hx Ulcer Musculoskeltal Medical History: Reports Hx Arthritis, Denies Hx Multiple Sclerosis Psychiatric Medical History: Reports: Hx Dementia Denies: Hx Depression Infectious Medical History: Denies: Hx Hepatitis Past Surgical History: Reports: Hx Tubal Ligation. Denies: Hx Appendectomy, Hx Bowel Surgery, Hx Section, Hx Cholecystectomy, Hx Coronary Artery Bypass Graft, Hx Gastric Bypass Surgery, Hx Herniorrhaphy, Hx Hysterectomy, Hx Mastectomy, Hx Open Heart Surgery, Hx Pacemaker, Hx Tonsillectomy Physical Exam - Vital signs Vitals: Temp Pulse Resp BP Pulse Ox 98.3 F 91 16 115/64 96 12/03/19 18:57 12/03/19 18:57 12/03/19 18:57 12/03/19 18:57 12/03/19 18:57 Course - Vital Signs Vital signs: Temp Pulse Resp BP Pulse Ox 98.3 F 91 16 115/64 96 12/03/19 19:06 12/03/19 18:57 12/03/19 18:57 12/03/19 18:57 12/03/19 18:57 Doctor's Discharge - Discharge Referrals: PILO BLACK MD [Primary Care Provider] - Follow up as needed
[2019-12-03] MEDS ORDERED: LIDOCAINE 2% URO-JET 5 ML KIT MM ONE (19:24)
[2019-12-03 20:12] LABS: ABSOLUTE EOSINOPHILS # (AUTO) 0.1 10^3/uL (0.0-0.6); ABSOLUTE LYMPHOCYTES (AUTO) 2.2 10^3/uL (0.5-4.7); ABSOLUTE MONOCYTES (AUTO) 0.5 10^3/uL (0.1-1.4); ABSOLUTE NEUT (AUTO) 6.5 10^3/uL (1.7-8.2); BASOPHILS % (AUTO) 0.4 % (0-2); EOSINOPHILS % (AUTO) 0.9 % (0-6); HEMATOCRIT 36.4 % (36.0-47.0); HEMOGLOBIN 11.6 g/dL (12.0-15.5); LYMPHOCYTES % (AUTO) 23.7 % (13-45); MEAN CORPUSCULAR HEMOGLOBIN 24.1 pg (27.0-33.4); MEAN CORPUSCULAR VOLUME 75 fl (80-97); MONOCYTES % (AUTO) 5.6 % (3-13); PLATELET COUNT 245 10^3/uL (150-450); RED BLOOD COUNT 4.84 10^6/uL (3.72-5.28); SEGMENTED NEUTROPHILS % (AUTO) 69.4 % (42-78); TOTAL CELLS COUNTED % (AUTO) 100 %; WHITE BLOOD COUNT 9.4 10^3/uL (4.0-10.5)
[2019-12-03 20:27] LABS: ALBUMIN 3.6 g/dL (3.5-5.0); ALKALINE PHOSPHATASE 113 U/L (38-126); ANION GAP 10 (5-19); ASPARTATE AMINO TRANSFERASE 35 U/L (14-36); BILIRUBIN,DIRECT 0.4 mg/dL (0.0-0.4); BILIRUBIN,TOTAL 0.6 mg/dL (0.2-1.3); BLOOD UREA NITROGEN 23 mg/dL (7-20); CALCIUM 10.6 mg/dL (8.4-10.2); CARBON DIOXIDE 25 mmol/L (22-30); CHLORIDE 106 mmol/L (98-107); GLUCOSE 105 mg/dL (75-110); POTASSIUM 4.8 mmol/L (3.6-5.0); TOTAL PROTEIN 7.4 g/dL (6.3-8.2)
--- NOTE | 2019-12-03 20:33 | ER Document Report ---
ED GI/ - General Chief Complaint: Blood in Catheter Stated Complaint: BLOOD IN URINE Time Seen by Provider: 12/03/19 19:06 Primary Care Provider: PILO BLACK MD [Primary Care Provider] - Follow up as needed Notes: CHIEF COMPLAINT: Possible hematuria HPI: History is obtained from the daughter secondary to patient dementia. 84-year-old female who is on Eliquis brought for possible hematuria. Patient is incontinent normally and wears a diaper her daughter noticed that she has had some blood in the diaper intermittently. No fever. No abdominal pain. Daughter states they were here 2 weeks ago and patient was catheterized for urine at that time and she states that was when she for started noticing the bleeding. Has not seen patient scratching at the vaginal region. Has not taken the patient to her primary care provider for evaluation. ROS: See HPI - all other systems were reviewed and are otherwise negative Constitutional: no fever GI: no vomiting, no diarrhea, no abdominal pain : no dysuria, possible hematuria Integumentary: no rash Allergy: no hives Musculoskeletal: no extremity pain or swelling Neurological: no numbness/tingling, no weakness MEDICATIONS: I agree with the patient medications as charted by the RN. ALLERGIES: I agree with the allergies as charted by the RN. PAST MEDICAL HISTORY/PAST SURGICAL HISTORY: Reviewed and agree as charted by RN. SOCIAL HISTORY: Reviewed and agree as charted by RN. FAMILY HISTORY: No significant familial comorbid conditions directly related to patient complaint EXAM: Reviewed vital signs as charted by RN. CONSTITUTIONAL: Alert and oriented and responds appropriately to questions. Well-appearing; well-nourished HEAD: Normocephalic; atraumatic EYES: PERRL; Conjunctivae clear, sclerae non-icteric ENT: normal nose; no rhinorrhea; moist mucous membranes NECK: Supple without meningismus; non-tender; no cervical lymphadenopathy, no masses CARD: RRR; no murmurs, no clicks, no rubs, no gallops; symmetric distal pulses RESP: Normal chest excursion without splinting or tachypnea; breath sounds clear and equal bilaterally; no wheezes, no rhonchi, no rales, pulse oximetry 98% on room air not hypoxic ABD/GI: Normal bowel sounds; non-distended; soft, non-tender, no rebound, no guarding; no palpable organomegaly or masses. : With female desk editor present external vaginal region was examined. Normal female external genitalia. There is no definitive scratch or area of bleeding noted. There is some bright red blood in the diaper. No definite vaginal bleeding is noted. BACK: The back appears normal and is non-tender to palpation, there is no CVA tenderness EXT: Normal ROM in all joints; non-tender to palpation; no cyanosis, no effusions, no edema SKIN: Normal color for age and race; warm; dry; good turgor; no acute lesions noted NEURO: Moves all extremities equally; Motor and sensory function intact PSYCH: The patient's mood and manner are appropriate. Grooming and personal hygiene are appropriate. MDM: TRAVEL OUTSIDE OF THE [place] IN LAST 30 DAYS: No - Related Data Allergies/Adverse Reactions: lisinopril Adverse Reaction (Mild, Verified 12/03/19 19:06) cough Home Medications: LASIX. LOSARTAN. CARDIZEM. MULTIVITAMIN. MEGACE. TRAMADOL. IRON Past Medical History - Social History Smoking Status: Never Smoker Chew tobacco use (# tins/day): No Frequency of alcohol use: None Drug Abuse: None Family History: Reviewed & Not Pertinent Patient has homicidal ideation: No - Past Medical History Cardiac Medical History: Reports: Hx Congestive Heart Failure, Hx Hypertension - medicated Denies: Hx Atrial Fibrillation, Hx Coronary Artery Disease, Hx Heart Attack, Hx Hypercholesterolemia, Hx Peripheral Vascular Disease, Hx Heart Murmur Pulmonary Medical History: Denies: Hx Asthma, Hx Bronchitis, Hx COPD, Hx Pneumonia, Hx Tuberculosis Neurological Medical History: Denies: Hx Cerebrovascular Accident, Hx Seizures, Hx Parkinson's Disease Renal/ Medical History: Denies: Hx Peritoneal Dialysis GI Medical History: Denies: Hx Hepatitis, Hx Hiatal Hernia, Hx Ulcer Musculoskeletal Medical History: Reports Hx Arthritis, Denies Hx Multiple Sclerosis Psychiatric Medical History: Reports: Hx Dementia Denies: Hx Depression Infectious Medical History: Denies: Hx Hepatitis Past Surgical History: Reports: Hx Tubal Ligation. Denies: Hx Appendectomy, Hx Bowel Surgery, Hx Section, Hx Cholecystectomy, Hx Coronary Artery Bypass Graft, Hx Gastric Bypass Surgery, Hx Herniorrhaphy, Hx Hysterectomy, Hx Mastectomy, Hx Open Heart Surgery, Hx Pacemaker, Hx Tonsillectomy - Immunizations Hx Pneumococcal Vaccination: 03/28/13 Physical Exam - Vital signs Vitals: Temp Pulse Resp BP Pulse Ox 98.3 F 91 16 115/64 96 12/03/19 18:57 12/03/19 18:57 12/03/19 18:57 12/03/19 18:57 12/03/19 18:57 Course - Re-evaluation Re-evalutation: 12/03/19 22:16 CT imaging shows calcified fibroids, diverticulosis without diverticulitis, constipation. Urine shows likely hemorrhagic cystitis. Will give Rocephin in the emergency department keep patient on Keflex. Will prescribe Dulcolax suppository for home use for the constipation. Follow-up with PCP. Discussed at length with the daughter who is comfortable with the plan - Vital Signs Vital signs: Temp Pulse Resp BP Pulse Ox 98.3 F 91 16 115/64 96 12/03/19 19:06 12/03/19 18:57 12/03/19 18:57 12/03/19 18:57 12/03/19 18:57 - Laboratory Result Diagrams: 12/03/19 19:58 12/03/19 19:58 Laboratory results interpreted by me: 12/03/19 12/03/19 12/03/19 19:58 19:58 21:00 Hgb 11.6 L MCV 75 L MCH 24.1 L RDW 15.0 H BUN 23 H Est GFR (MDRD) Non-Af 51 L Calcium 10.6 H Urine Protein >=500 H Urine Blood LARGE H Urine Urobilinogen 2.0 H Urine Ascorbic Acid 40 H Discharge - Discharge Clinical Impression: Acute hemorrhagic cystitis, Diverticulosis Constipation Qualifiers: Constipation type: unspecified constipation type Qualified Code(s): K59.00 - Constipation, unspecified Condition: Stable Disposition: HOME, SELF-CARE Additional Instructions: Use the Dulcolax suppositories to encourage bowel movement over the next several days. Patient was noted to have a urinary infection or bladder infection likely causing her bleeding. Take the antibiotics as prescribed. Follow-up with primary care provider to ensure resolution of symptoms. If patient develops abdominal pain or high fever greater than 101 return for reevaluation of symptoms. Patient was noted to have diverticulosis on her CT imaging today. This may also be followed up through the primary care provider at this time Prescriptions: Bisacodyl [Dulcolax 10 mg Supp.rect] 10 mg KS DAILYP PRN #5 supp.rect PRN Reason: Cephalexin Monohydrate [Keflex 500 mg Capsule] 500 mg PO Q6H 7 Days #28 capsule Referrals: PILO BLACK MD [Primary Care Provider] - Follow up as needed
[2019-12-03 21:37] LABS: APPEARANCE,URINE CLEAR; BILIRUBIN,URINE NEGATIVE (NEGATIVE); COLOR,URINE AMBER; GLUCOSE, URINE NEGATIVE (NEGATIVE); KETONES,URINE NEGATIVE (NEGATIVE); PROTEIN,URINE >=500 mg/dL (NEGATIVE); URINE SPECIFIC GRAVITY 1.023
[2019-12-03] MEDS ORDERED: CEFTRIAXONE INJ 1000 MG VIAL IM ONE (21:47)
--- NOTE | 2019-12-03 22:07 | RADIOLOGY REPORT (SQ) ---
CLINICAL INDICATION: hematuria. . TECHNIQUE: Noncontrast spiral axial CT imaging was obtained of the abdomen and pelvis with multiplanar reconstructions. This exam was performed according to our departmental dose-optimization program, which includes automated exposure control, adjustment of the mA and/or kV according to patient size and/or use of iterative reconstruction techniques. COMPARISON: None. CORRELATION: None. FINDINGS: Abdomen: The lung bases demonstrate chronic changes. Dependent atelectasis. No consolidation. The heart is prominent with coronary calcification. No evidence of pleural or pericardial fluid. The liver is homogeneous.. The gallbladder demonstrates cholelithiasis without cholecystitis. No surrounding inflammatory change. The pancreas is of grossly normal contour on this noncontrast examination. The spleen is unremarkable. The adrenals are unremarkable. The kidneys appear grossly normal without evidence of urolithiasis or hydronephrosis. There is no evidence of free air. No free fluid. No bulky adenopathy. Abdominal aorta is nonaneurysmal. Pelvis: The bowel is nonobstructed. The bowel is unopacified with oral contrast. Pelvic contents demonstrate calcified myomata within the uterus. The appendix is not seen. Apparent remote postsurgical change the bowel. Please correlate with history. Diverticulosis without acute diverticulitis. Fecal impaction within the rectum with distention of the rectum to approximately 9 cm.. Visualized bones demonstrate age-appropriate osteoarthritis. Remote postsurgical change right hip. There is a transitional vertebrae lumbosacral junction.. IMPRESSION: Artifact from the patient's arms. Imaging is degraded by patient motion, with resultant artifact. The best possible images were obtained. Fecal impaction within the rectum. The bowel is nonobstructed. Cholelithiasis without acute cholecystitis. The cause of the patient's hematuria is not identified on this examination..
[2019-12-03] MEDS ORDERED: LIDOCAINE 1% INJ (10 MG/ML) 10 ML MDV INJ ONE (22:31)
[2019-12-03 22:56] VITALS: BP 108/75
== END 2019-12-03 22:54 | disposition home or self-care (01) ==
LOC: ER 18:51
DX: N30.01 Acute cystitis with hematuria (principal); K57.90 Diverticulosis of intestine, part unspecified, without perforation or abscess without bleeding; F03.90 Unspecified dementia, unspecified severity, without behavioral disturbance, psychotic disturbance, mood disturbance, and anxiety; I50.9 Heart failure, unspecified; I11.0 Hypertensive heart disease with heart failure; Z98.51 Tubal ligation status; Z79.02 Long term (current) use of antithrombotics/antiplatelets
CPT/HCPCS: 99285; 96372; 51701; 86900; 86901; 36415; 87086; 86850; 85025; 87088; 80053; 81001; 74176; J0696; 87186